=== PATIENT | female | born 1945 | race Caucasian/White ===

== ENCOUNTER 2017-10-03 12:00 | Outpatient (CLI) | payer MEDICARE | END 2017-10-03 12:01 | disposition home or self-care (01) | LOC: BICMAMMO 12:00 | PROVIDERS: ATTEND Obstetrics & Gynecology | DX: Z12.31 Encounter for screening mammogram for malignant neoplasm of breast (principal) | CPT/HCPCS: 77063; 77067 ==

== ENCOUNTER 2018-10-04 00:30 | Emergency (ER) | payer MEDICARE ==
[2018-10-04] MEDS ORDERED: HYDROcodone/Acetaminophen 5/325 mg Tablet ONE (03:05)
--- NOTE | 2018-10-04 07:44 | RAD ---
RIGHT WRIST GREATER THAN OR EQUAL TO 2 VIEWS WITH A PA CHEST XRAY: HISTORY: Pain. COMPARISON: None. FINDINGS: The lungs are clear. No pneumothorax. No effusion. There is mild scarring of both lung apices. There appears to be cement in the upper and lower lumbar spine vertebrae from an old fracture. There is a fracture of the right posterolateral 2nd, 3rd, 4th, 5th, and 6th ribs. IMPRESSION: Nondisplaced right posterolateral 2nd through 6th rib fractures. POS: [facility]
== END 2018-10-04 03:11 | disposition home or self-care (01) ==
LOC: ERS 00:30
DX: S22.41XA Multiple fractures of ribs, right side, initial encounter for closed fracture (principal); E03.9 Hypothyroidism, unspecified; E78.5 Hyperlipidemia, unspecified; I10 Essential (primary) hypertension; K21.9 Gastro-esophageal reflux disease without esophagitis; Z79.899 Other long term (current) drug therapy; W19.XXXA Unspecified fall, initial encounter

== ENCOUNTER 2018-10-06 19:08 | Emergency (ER) | payer MEDICARE ==
[2018-10-06] MEDS ORDERED: Ketorolac Tromethamine 30 MG/ML VIAL ONE (19:56)
--- NOTE | 2018-10-06 20:05 | RAD ---
FPortable chest: HISTORY: Fall with injury to ribs COMPARISON: none FINDINGS: Lung porter are clear. Heart and mediastinum appear unremarkable. Vascularity is normal. Right-sided rib fractures have been previously described. IMPRESSION: No acute finding
== END 2018-10-06 21:15 | disposition home or self-care (01) ==
LOC: ERS 19:08
DX: R07.81 Pleurodynia (principal); E03.9 Hypothyroidism, unspecified; K21.9 Gastro-esophageal reflux disease without esophagitis; E78.5 Hyperlipidemia, unspecified; I10 Essential (primary) hypertension; Z79.899 Other long term (current) drug therapy; W19.XXXD Unspecified fall, subsequent encounter
CPT/HCPCS: 71045; 94799; 96372; J1885

== ENCOUNTER 2018-11-04 22:53 | Inpatient (IN) | payer MEDICARE ==
[2018-11-04 23:46] LABS: #Eosinphils 0.3 thou/uL (0.0-0.7); #Lymphocytes 2.6 thou/uL (1.20-3.40); #Monocytes 0.7 thou/uL (0.11-0.59); #Neutrophils 3.3 thou/uL (1.40-6.50); %Basophils 0.6 % (0.0-1.0); %Eosinophils 4.1 % (0.0-10.0); %Lymphocytes 36.9 % (21.0-51.0); %Monocytes 10.5 % (0.0-10.0); Hemoglobin 15.1 g/dL (12.0-16.0); Mean Corpuscular HGB CONC 32.4 g/dL (32.0-36.0); Mean Corpuscular Hemoglobin 32.5 pg (27.0-31.0); Mean Platelet Volume 7.1 fL (7.4-10.4); Platelet Count 254 thou/uL (130-400); RBC Distribution Width 11.7 % (11.5-14.5); Red Blood Cell (RBC) Count 4.64 mill/uL (4.20-5.40); White Blood Cell (WBC) Count 6.9 thou/uL (4.8-10.8)
[2018-11-04 23:56] LABS: INR-International Normal Ratio 0.9; Prothrombin Time 12.4 SEC (12.0-14.7)
[2018-11-05 00:01] LABS: ALT (SGPT) 15 U/L (8-55); AST (SGOT) 20 U/L (5-34); Albumin 3.9 g/dL (3.4-4.8); Alkaline Phosphatase 300 U/L (40-150); Anion Gap 11 mmol/L (10-20); BUN (Urea Nitrogen) 20 mg/dL (9.8-20.1); Bilirubin, Total 0.2 mg/dL (0.2-1.2); Calc. Creatinine Clearance 0 mL/min (70-130); Calcium 9.6 mg/dL (7.8-10.44); Carbon Dioxide 28 mmol/L (23-31); Chloride 106 mmol/L (98-107); Estimated GFR-MDRD 78; Globulin 2.7 g/dL (2.4-3.5); Glucose 109 mg/dL (83-110); Potassium 4.1 mmol/L (3.5-5.1); Protein, Total 6.6 g/dL (6.0-8.3); Sodium 141 mmol/L (136-145)
[2018-11-05] MEDS ORDERED: Morphine 4 MG/ML VIAL ONE (00:11)
[2018-11-05] MEDS ORDERED: Ondansetron PF 4 MG/2 ML Vial ONE ×2 (00:11→16:37)
[2018-11-05] MEDS ORDERED: hydrALAZINE 20 MG/ML VIAL SLOW IVP PRN (02:44)
[2018-11-05] MEDS ORDERED: Dextrose 50% Abboject 50 ML SYRINGE SLOW IVP PRN (02:44)
[2018-11-05] MEDS ORDERED: Dextrose 5% in Water 1,000 ML IV PRN (02:44)
[2018-11-05] MEDS ORDERED: Acetaminophen 1,000 MG in Premix Bag 1 BAG IVPB SCH (02:44)
[2018-11-05] MEDS ORDERED: Ondansetron PF 4 MG/2 ML Vial IVP PRN ×2 (02:44→14:40)
[2018-11-05] MEDS ORDERED: Morphine 4 MG/ML VIAL SLOW IVP PRN (02:44)
[2018-11-05] MEDS ORDERED: Ondansetron ODT 4 MG TAB PO PRN ×2 (02:44→14:40)
[2018-11-05] MEDS: Sodium Chloride 0.9% 1,000 ML IV SCH ×2 (03:11→12:28)
[2018-11-05 03:12] VITALS: BMI 32.5
[2018-11-05] MEDS: Acetaminophen 1,000 MG in Premix Bag 1 BAG IVPB SCH ×3 (03:12→17:44)
[2018-11-05] MEDS: Ketorolac Tromethamine 30 MG/ML VIAL IVP SCH ×3 (05:05→17:45)
[2018-11-05] MEDS: Morphine 4 MG/ML VIAL SLOW IVP PRN ×2 (05:17→09:56)
[2018-11-05 05:36] LABS: #Lymphocytes 1.1 thou/uL (1.20-3.40); #Monocytes 0.8 thou/uL (0.11-0.59); #Neutrophils 11.2 thou/uL (1.40-6.50); %Basophils 0.2 % (0.0-1.0); %Eosinophils 0.3 % (0.0-10.0); %Lymphocytes 8.5 % (21.0-51.0); %Monocytes 6.2 % (0.0-10.0); %Neutrophils 84.8 % (42.0-75.0); Hemoglobin 14.8 g/dL (12.0-16.0); Mean Corpuscular HGB CONC 32.1 g/dL (32.0-36.0); Mean Corpuscular Hemoglobin 32.4 pg (27.0-31.0); Mean Platelet Volume 7.3 fL (7.4-10.4); Platelet Count 241 thou/uL (130-400); RBC Distribution Width 11.6 % (11.5-14.5); Red Blood Cell (RBC) Count 4.57 mill/uL (4.20-5.40); White Blood Cell (WBC) Count 13.2 thou/uL (4.8-10.8)
[2018-11-05 05:52] LABS: Anion Gap 12 mmol/L (10-20); BUN (Urea Nitrogen) 16 mg/dL (9.8-20.1); Calc. Creatinine Clearance 95 mL/min (70-130); Calcium 9.7 mg/dL (7.8-10.44); Carbon Dioxide 27 mmol/L (23-31); Chloride 104 mmol/L (98-107); Estimated GFR-MDRD 86; Glucose 140 mg/dL (83-110); Potassium 4.8 mmol/L (3.5-5.1); Sodium 138 mmol/L (136-145)
--- NOTE | 2018-11-05 06:58 | RAD ---
PORTABLE CHEST 1 VIEW: Date: 11/04/18 Time: 2347 hours HISTORY: Fall, injury, chest pain. FINDINGS: Comparison made with exam of 10/06/18. The heart size is stable. Lungs are well expanded without focal areas of consolidation, pneumothorace s, or pleural effusions. There is no evidence of mary pulmonary edema. IMPRESSION: No acute process. POS: [facility]
--- NOTE | 2018-11-05 07:00 | RAD ---
AP PELVIS AND LEFT HIP 2 VIEWS: Date: 11/04/18 HISTORY: Fall. Left hip pain. FINDINGS/IMPRESSION: There are postop changes and right hip arthroplasty in good position and alignment. There is an intertrochanteric fracture involving the left hip. POS: [facility]
--- NOTE | 2018-11-05 08:18 | HP ---
This is Yosvany Castaneda PA-C dictating a report for Jose Daniel Cisneros MD. REQUESTING PHYSICIAN: Dr. Pugh. ATTENDING SURGEON: Jose Daniel Cisneros MD CONSULTATIONS: Orthopedics, Dr. Wright. HISTORY OF PRESENT ILLNESS: The patient is a 73-year-old woman, who was getting into her shower when she slipped and fell. Fortunately, she was able to activate her Life Alert and notify EMS, who brought her to the emergency department where she underwent evaluation and examination and was noted to have a left intertrochanteric hip fracture, at which time, we were asked to evaluate the patient for admission and obtain Orthopedic consultation. The patient denied any loss of consciousness or syncopal episode prior to her fall. ALLERGIES: PENICILLIN AND SULFA. CURRENT MEDICATIONS: Levothyroxine, phenytoin, atorvastatin, amlodipine, omeprazole, VESIcare, Imodium, vitamin D, iron, Tums, Tylenol with codeine and Ultram. PAST MEDICAL HISTORY: Hypothyroidism, hypertension, seizure disorder, hyperlipidemia, irritable bowel syndrome, and GERD. PAST SURGICAL HISTORY: Right total hip replacement and tonsillectomy. SOCIAL HISTORY: The patient lives at home with her . She normally ambulates with a walker. She denies drug, tobacco, or alcohol use. REVIEW OF SYSTEMS: A 10-point review of systems is negative except as otherwise stated. PHYSICAL EXAMINATION: VITAL SIGNS: Temperature is 98.2, heart rate 103, blood pressure 137/84, respirations 18, and oxygen saturation is 96% on room air. GENERAL: The patient is resting comfortably in bed. She is awake, alert, oriented, and conversant and appropriate. Busy Coma Scale is 15. HEENT. Head is normocephalic, atraumatic. Eyes, extraocular motion intact. PERRLA bilaterally. Ears are atraumatic without discharge. Nose atraumatic discharge. Oropharynx is clear. Neck is nontender. Trachea is midline. No JVD. CHEST: Clear to auscultation with good inspiratory and expiratory effort. HEART: Regular rate and rhythm. ABDOMEN: Soft, flat, nontender with active bowel sounds. Pelvis is stable with tenderness to palpation to the left hip consistent with her fracture. EXTREMITIES: Neurovascularly intact x4. The patient does have a small contusion on her left knee. BACK: Atraumatic and nontender. LABORATORY FINDINGS: White blood cell count 13.2, hemoglobin 14.8, hematocrit 46.2, and platelets 241. Sodium 138, potassium 4.8, chloride 104, CO2 27, BUN 16, creatinine 0.67, glucose 140. LFTs are unremarkable with the exception of alkaline phosphatase of 300. Troponin is less than 0.010. PT 12, INR 0.9, PTT 27. RADIOGRAPHIC FINDINGS: AP chest x-ray shows no acute process. Views of the left hip show an intertrochanteric hip fracture. AP pelvis again shows a left intertrochanteric hip fracture. ASSESSMENT/PLAN: 1. Status post ground level fall. 2. Left intertrochanteric hip fracture. 3. Acute pain secondary to above. 4. History of hypertension. 5. History of seizure disorder. 6. History of hyperlipidemia. 7. History of gastroesophageal reflux disease. PLAN: Plan will be to admit the patient to the surgical floor. Dr. Wright has been notified by the ER, likely plan for open reduction and internal fixation of her fracture today. Postoperatively, the patient will be evaluated by Rehab. We will do pain control, pulmonary toilet, gastritis, mechanical VTE prophylaxis. Resume home medications. The patient is not on any blood thinner to include aspirin. The evaluation, examination, laboratory and radiographic findings will be discussed with Dr. Cisneros after this dictation and be evaluated during rounds this morning. Job ID: [id number]
[2018-11-05] MEDS: Levothyroxine Sodium 50 MCG TAB PO SCH (08:24)
[2018-11-05] MEDS: Ferrous Gluconate 324 MG TAB PO SCH (08:33)
[2018-11-05] MEDS: Calcium Carbonate 500 MG TAB PO SCH ×2 (08:33→22:01)
[2018-11-05] MEDS ORDERED: Clindamycin/D5W 900 MG in Premix Bag 1 BAG IVPB SCH (09:15)
[2018-11-05] MEDS: Trospium 20 MG TAB PO SCH ×2 (09:48→22:21)
[2018-11-05] MEDS: Famotidine 20 MG TAB PO SCH ×2 (09:48→22:02)
[2018-11-05] MEDS ORDERED: Clindamycin/D5W 900 mg/50 ml Premix Bag ONE (12:09)
[2018-11-05] MEDS ORDERED: Fentanyl 100 MCG/2 ML VIAL ONE ×2 (12:46→14:47)
--- NOTE | 2018-11-05 13:09 | PRG ---
DATE OF SERVICE: 11/05/2018 SUBJECTIVE: Shirley Garcia is a 73-year-old female, who fell in the shower, suffered a left hip fracture. ORIF is planned today. She is followed by the Trauma Service. PAST MEDICAL HISTORY: Includes a history of seizures and hypertension. HOME MEDICATIONS: Include, 1. PPI. 2. Iron. 3. Tramadol. 4. Phenytoin. 5. P.r.n. . 6. Levothyroxine. 7. P.r.n. hydrocodone. 8. Atorvastatin. 9. Amlodipine. Agree with treatment plan per Orthopedics and Trauma Care. OBJECTIVE: LUNGS: Clear to auscultation. CARDIAC: Regular rate and rhythm. No murmur or gallop. ABDOMEN: Soft, nontender. Job ID: [id number]
[2018-11-05] MEDS ORDERED: Neomycin-Polymyxin 1 ML AMP ONE (13:57)
[2018-11-05] MEDS ORDERED: Cepastat Lozenges 1 LOZ PO PRN (14:40)
[2018-11-05] MEDS ORDERED: Milk Of Magnesia 30 ML UDCUP PO PRN (14:40)
[2018-11-05] MEDS ORDERED: Fleet Enema 133 ML BOT PR PRN (14:40)
[2018-11-05] MEDS ORDERED: Bisacodyl 10 MG SUPP PR PRN (14:40)
[2018-11-05] MEDS ORDERED: traMADol HCl 50 MG TAB PO PRN ×2 (14:40)
[2018-11-05] MEDS ORDERED: Promethazine HCl 25 MG/ML VIAL IM PRN (14:47)
[2018-11-05] MEDS ORDERED: Promethazine HCl 25 MG/ML VIAL SLOW IVP PRN (14:47)
[2018-11-05] MEDS ORDERED: Ondansetron HCl/PF 4 MG/2 ML Vial IVP PRN (14:47)
[2018-11-05] MEDS ORDERED: Promethazine HCl 25 MG/ML VIAL ONE (15:29)
--- NOTE | 2018-11-05 15:54 | RAD ---
LEFT HIP THREE VIEWS: Technique: Three fluoroscopic views taken in OR during internal fixation procedure. Indications: Fluoroscopic imaging during open reduction internal fixation of left hip fracture. FINDINGS: Films demonstrate medullary brian and pin transfixing the trochanteric fracture. POS: [facility]
[2018-11-05] MEDS ORDERED: Lidocaine 1% PF 5 ML VIAL ONE (16:37)
[2018-11-05] MEDS ORDERED: PROPOFOL 200 MG/20 ML VIAL ONE (16:37)
[2018-11-05] MEDS ORDERED: ePHEDrine 50 MG/ML VIAL ONE (16:37)
[2018-11-05] MEDS ORDERED: Ketorolac Tromethamine 30 MG/ML VIAL ONE (16:37)
[2018-11-05] MEDS ORDERED: PHENYLEPHRINE-NS 100 MCG/ML 10 ML SYRINGE ONE (16:37)
[2018-11-05] MEDS ORDERED: Rocuronium Bromide 10 MG/ML (10ML VIAL) ONE (16:37)
[2018-11-05] MEDS ORDERED: Ferrous Gluconate 324 MG TAB PO SCH (21:00)
--- NOTE | 2018-11-05 21:10 | OP ---
DATE OF PROCEDURE: 11/05/2018 PREOPERATIVE DIAGNOSIS: Intertrochanteric fracture of the left hip. POSTOPERATIVE DIAGNOSIS: Intertrochanteric fracture of the left hip. PROCEDURE PERFORMED: Open reduction and internal fixation of intertrochanteric fracture of the left hip. ANESTHESIA: General. TECHNIQUE: The patient was given preoperative IV antibiotics, taken to the operating room, placed in supine position. Satisfactory general anesthesia was performed. The patient was placed on the fracture table and left lower extremity was placed in traction with a well-padded left foot and ankle, and C-arm verified good alignment of the intertrochanteric fracture in AP and lateral planes. A longitudinal incision was made approximately 2 inches in length proximal to the greater trochanter and under fluoroscopic visualization, a guide pin was placed through the greater trochanter. It was then over-reamed and a [employer]ynthe[employer] trochanteric fixation nail that was 11 mm in diameter and 170 mm in length was inserted across the fracture and into the intramedullary canal. A 95 mm helical blade was then inserted through the nail and into the femoral neck and head, and was then locked into position. A 5.0 mm locking screw was inserted into the femoral shaft and distal aspect of the nail. This was all in good position, was verified with C-arm, and good placement of the nail and screws. Wounds were then copiously irrigated with antibiotic solution, closed using Vicryl for the deeper tissue, and skin was closed using skin smith. Sterile dressing was applied. The patient was taken out of traction. She was awakened, extubated, and transferred to recovery room in stable condition. ESTIMATED BLOOD LOSS: 200 mL. COMPLICATIONS: None. Job ID: [id number]
--- NOTE | 2018-11-05 21:15 | CON ---
DATE OF CONSULTATION: 11/05/2018 HISTORY OF PRESENT ILLNESS: Ms. Garcia is a 73-year-old female, who was at home in the shower. She slipped and fell on her left hip, had immediate pain and deformity in the left hip, and was unable to ambulate. She was brought to the emergency room early this morning. X-rays revealed a displaced intertrochanteric fracture of the left hip. ALLERGIES: PENICILLIN AND SULFA. CURRENT MEDICATIONS: 1. Levothyroxine. 2. Phenytoin. 3. Atorvastatin. 4. Amlodipine. 5. VESIcare. 6. Imodium. 7. Tylenol with codeine. 8. Ultram. PAST MEDICAL HISTORY: Hypothyroidism, hypertension, seizure disorder, hyperlipidemia, irritable bowel syndrome, and GERD. PAST SURGICAL HISTORY: ORIF of the posterior acetabulum and pelvic region and then later a right total hip replacement and tonsillectomy. PHYSICAL EXAMINATION: GENERAL: The patient is a very pleasant female, alert and oriented x3. She is afebrile. VITAL SIGNS: Stable. The patient has pain with any attempts of movement of the left hip. EXTREMITIES: Left lower extremity is neurovascularly intact. She has good peripheral pulses. Good sensation. X-ray shows intertrochanteric fracture of the left hip with coxa varus. PLAN: The patient will require open reduction and internal fixation of the proximal left femur. Plan on using a trochanteric fixation nail. Potential risks with the condition of surgery include, but are not limited to infection, bleeding, pain, damage to blood vessels and nerves, nonunion, malunion, patient may require additional surgery, DVT and PE formation. The patient's questions were answered and agreed to the procedure. Job ID: [id number]
[2018-11-05] MEDS: Amlodipine 5 MG TAB PO SCH (22:00)
[2018-11-05] MEDS: Atorvastatin Calcium 10 MG TAB PO SCH (22:01)
[2018-11-05] MEDS: Senokot S 8.6-50 MG TAB PO SCH (22:03)
[2018-11-06] MEDS ORDERED: Cyclobenzaprine 10 MG TAB PO PRN (01:29)
[2018-11-06] MEDS ORDERED: traMADol HCl 50 MG TAB PO PRN ×2 (01:29)
[2018-11-06 05:40] LABS: Mean Corpuscular HGB CONC 31.9 g/dL (32.0-36.0); Mean Corpuscular Hemoglobin 31.8 pg (27.0-31.0); Mean Corpuscular Volume 99.6 fL (78.0-98.0); Mean Platelet Volume 7.1 fL (7.4-10.4); Platelet Count 202 thou/uL (130-400); RBC Distribution Width 11.5 % (11.5-14.5); Red Blood Cell (RBC) Count 4.08 mill/uL (4.20-5.40); White Blood Cell (WBC) Count 7.3 thou/uL (4.8-10.8)
[2018-11-06] MEDS: Acetaminophen 500 MG TAB PO SCH ×4 (05:53→18:58)
[2018-11-06] MEDS: Ibuprofen 800 MG TAB PO SCH ×2 (05:53→13:06)
[2018-11-06] MEDS: Levothyroxine Sodium 50 MCG TAB PO SCH (08:36)
[2018-11-06] MEDS: Ferrous Gluconate 324 MG TAB PO SCH (08:36)
[2018-11-06] MEDS: Multivitamin W/ Minerals 1 TAB PO SCH (08:39)
[2018-11-06] MEDS: Famotidine 20 MG TAB PO SCH ×2 (08:39→21:49)
[2018-11-06] MEDS: Senokot S 8.6-50 MG TAB PO SCH ×2 (08:39→21:51)
[2018-11-06] MEDS: Calcium Carbonate 500 MG TAB PO SCH ×2 (08:40→21:48)
[2018-11-06] MEDS: Aspirin 81 mg Enteric Coated Tablet PO SCH ×2 (10:01→21:48)
[2018-11-06] MEDS: Trospium 20 MG TAB PO SCH ×2 (10:02→21:52)
[2018-11-06] MEDS: Ibuprofen 600 MG TAB PO SCH ×2 (11:41→18:53)
[2018-11-06] MEDS ORDERED: traMADol HCl 50 MG TAB PO SCH (12:00)
--- NOTE | 2018-11-06 13:26 | PRG ---
DATE OF SERVICE: 11/06/2018 SUBJECTIVE: This is a 73-year-old woman who was getting out of her shower when she slipped and fell. The patient is postop day number 1, open reduction and internal fixation of intertrochanteric fracture of the left hip. The patient had no overnight events. The patient is attempting to work with Physical Therapy at this time with increased pain. OBJECTIVE: VITAL SIGNS: Temperature 97.7, pulse 109, respirations 18, SpO2 of 97% on room air, blood pressure 121/86. GENERAL: The patient is awake and alert, in moderate distress due to pain while working with Physical Therapy. HEENT: Head is normocephalic, atraumatic. CHEST: Good inspiratory and expiratory effort. No respiratory distress. HEART: Regular rate and rhythm. ABDOMEN: Soft, nontender. EXTREMITIES: Neurovascularly intact x4. The patient has small contusion to left knee. LABORATORY DATA: WBC 7.3, RBC 4.08, hemoglobin 13.0, hematocrit 40.7. DIAGNOSTIC STUDIES: There is no diagnostics to review today. ASSESSMENT: 1. Status post ground level fall. 2. Left intertrochanteric hip fracture, postoperative day number 1. 3. Acute pain secondary to above. 4. History of hypertension. 5. History of seizure disorder. 6. History of hyperlipidemia. 7. History of gastroesophageal reflux disease. PLAN: We will continue supportive care. We will put the patient on scheduled pain medication as she is having difficulty working with Physical Therapy. We will put the patient on aspirin 81 mg b.i.d. for DVT prophylaxis. Case Management working to get the patient to the [facility] for continued physical therapy. The patient was examined with Dr. Roy this morning during morning rounds. Job ID: [id number]
[2018-11-06] MEDS: traMADol HCl 50 MG TAB PO SCH ×2 (17:08→21:50)
--- NOTE | 2018-11-06 18:31 | PRG ---
DATE OF SERVICE: 11/06/2018 SUBJECTIVE: Ms. Garcia is 1 day status post open reduction and internal fixation of intertrochanteric fracture using a trochanteric fixation nail. The patient did work with Physical Therapy, was able to get out of bed and sit in a chair. She complains of pain. She has no neurologic complaints in the lower extremity. No other complaints elsewhere. OBJECTIVE: VITAL SIGNS: The patient is afebrile. Vital signs are stable. LABORATORY DATA: Hemoglobin this morning is 13. PLAN: The patient will continue with physical therapy. Her plan post-hospitalization is, go to long term facility and Case Management is involved with that. Job ID: [id number]
[2018-11-06] MEDS: Amlodipine 5 MG TAB PO SCH (21:47)
[2018-11-06] MEDS: Atorvastatin Calcium 10 MG TAB PO SCH (21:48)
[2018-11-07] MEDS: Acetaminophen 500 MG TAB PO SCH ×4 (00:36→17:51)
[2018-11-07] MEDS: traMADol HCl 50 MG TAB PO SCH ×4 (03:48→21:32)
[2018-11-07] MEDS: Ibuprofen 600 MG TAB PO SCH ×3 (03:48→17:48)
[2018-11-07 05:26] LABS: Mean Corpuscular HGB CONC 32.2 g/dL (32.0-36.0); Mean Corpuscular Hemoglobin 32.4 pg (27.0-31.0); Mean Platelet Volume 6.9 fL (7.4-10.4); Platelet Count 194 thou/uL (130-400); RBC Distribution Width 11.6 % (11.5-14.5); White Blood Cell (WBC) Count 8.4 thou/uL (4.8-10.8)
[2018-11-07] MEDS: Levothyroxine Sodium 50 MCG TAB PO SCH (09:48)
[2018-11-07] MEDS: Famotidine 20 MG TAB PO SCH ×2 (09:51→21:31)
[2018-11-07] MEDS: Aspirin 81 mg Enteric Coated Tablet PO SCH ×2 (09:51→21:30)
[2018-11-07] MEDS: Calcium Carbonate 500 MG TAB PO SCH ×2 (09:51→21:31)
[2018-11-07] MEDS: Ferrous Gluconate 324 MG TAB PO SCH (09:51)
[2018-11-07] MEDS: Senokot S 8.6-50 MG TAB PO SCH ×2 (09:51→21:32)
[2018-11-07] MEDS: Trospium 20 MG TAB PO SCH ×2 (09:52→21:32)
[2018-11-07] MEDS: Multivitamin W/ Minerals 1 TAB PO SCH (09:52)
--- NOTE | 2018-11-07 16:29 | PRG ---
DATE OF SERVICE: 11/07/2018 SUBJECTIVE: Ms. Garcia says pain in left hip has decreased compared to yesterday. She has been working with Physical Therapy. OBJECTIVE: VITAL SIGNS: The patient is afebrile. Vital signs are stable. LABORATORY DATA: Laboratory this morning shows hemoglobin is 12 and hematocrit 37.2. PLAN: The patient will continue with physical therapy. She is scheduled to be discharged to rehab as soon as bed is available. Job ID: [id number]
--- NOTE | 2018-11-07 17:33 | PRG ---
DATE OF SERVICE: 11/07/2018 SUBJECTIVE: The patient is currently on the surgical floor. She is postop day 2, hospital day 3 status post open reduction and internal fixation of intertrochanteric left hip fracture. The patient, who has a ground level fall, underwent her above procedure, which she has tolerated well. She is yet to work with Physical and Occupational Therapy other than sitting at the bedside. We suspect that she should be able to ambulate. Today, her pain control has been much better. She is tolerating a diet, and has no other complaints. The patient is also awaiting her third midnight for her to be able to be transferred to her nursing/rehab facility. OBJECTIVE: VITAL SIGNS: Temperature is 97.5, heart rate 95, blood pressure 100/65, respirations 18, oxygen saturation 92% on room air. GENERAL: The patient is resting comfortably in bed. She is awake, alert, very conversant, and appropriate. LUNGS: Clear to auscultation with good inspiratory and expiratory effort. HEENT: Unremarkable. HEART: Regular rate and rhythm. ABDOMEN: Soft, flat, nontender with active bowel sounds. EXTREMITIES: Neurovascularly intact x4. Postop dressing is clean, dry, and intact. LABORATORY FINDINGS: White blood cell count 8.4, hemoglobin 12.0, hematocrit 37.2, platelets 194. There are no radiographs to review this morning. ASSESSMENT AND PLAN: 1. Status post ground level fall. 2. Status post open reduction and internal fixation for a left intertrochanteric hip fracture. Plan will be to continue supportive care, physical and occupational therapy, and await placement decision tomorrow. The patient was evaluated this morning with Dr. Roy. Job ID: [id number]
[2018-11-07] MEDS: Amlodipine 5 MG TAB PO SCH (21:29)
[2018-11-07] MEDS: Atorvastatin Calcium 10 MG TAB PO SCH (21:30)
[2018-11-08] MEDS: Acetaminophen 500 MG TAB PO SCH ×3 (01:32→15:47)
[2018-11-08] MEDS: Ibuprofen 600 MG TAB PO SCH ×2 (03:32→09:33)
[2018-11-08] MEDS: traMADol HCl 50 MG TAB PO SCH ×3 (03:33→15:43)
[2018-11-08] MEDS ORDERED: Polyethylene Glycol 3350 17 GM Packet PO SCH (09:00)
[2018-11-08] MEDS: Levothyroxine Sodium 50 MCG TAB PO SCH (09:14)
[2018-11-08] MEDS: Aspirin 81 mg Enteric Coated Tablet PO SCH (09:14)
[2018-11-08] MEDS: Ferrous Gluconate 324 MG TAB PO SCH (09:14)
[2018-11-08] MEDS: Calcium Carbonate 500 MG TAB PO SCH (09:15)
[2018-11-08] MEDS: Famotidine 20 MG TAB PO SCH (09:15)
[2018-11-08] MEDS: Multivitamin W/ Minerals 1 TAB PO SCH (09:15)
[2018-11-08] MEDS: Trospium 20 MG TAB PO SCH (09:15)
[2018-11-08] MEDS: Senokot S 8.6-50 MG TAB PO SCH (09:15)
[2018-11-08 12:00] VITALS: TEMP 97.9
[2018-11-08] MEDS ORDERED: Fentanyl 100 MCG/2 ML VIAL ONE (15:13)
[2018-11-08 16:21] VITALS: BP 117/75
--- NOTE | 2018-11-09 18:58 | DIS ---
DATE OF ADMISSION: 11/05/2018 DATE OF DISCHARGE: 11/08/2018 RESIDENT: Dr. Wes Knapp. IMAGING STUDIES: AP chest shows no acute process. Views of left hip show intertrochanteric hip fracture. AP pelvis also shows intertrochanteric hip fracture. CONSULTANTS: Orthopedic Surgery, Dr. Isaac Wright. DISCHARGE MEDICATIONS: 1. Levothyroxine 50 mcg p.o. every morning. 2. Atorvastatin 10 mg p.o. at bedtime. 3. Calcium carbonate 1000 mg p.o. b.i.d. 4. Imodium 2 mg p.o. as directed p.r.n. 5. Tramadol 50 mg p.o. q.i.d. p.r.n. 6. Amlodipine 2.5 mg p.o. every evening. 7. Dilantin 300 mg p.o. at bedtime. 8. Ferrous gluconate 324 mg p.o. daily. 9. VESIcare 5 mg p.o. daily. 10. Omeprazole 40 mg p.o. b.i.d. 11. Acetaminophen 1000 mg p.o. q.6 hours. 12. Aspirin 81 mg p.o. b.i.d. 13. Flexeril 5 mg p.o. t.i.d. 14. Ibuprofen 600 mg p.o. q.8 hours. 15. Tramadol 50 mg p.o. q.6 hours. PRIMARY DIAGNOSIS: Status post open reduction and internal fixation of left intertrochanteric hip fracture. SECONDARY DIAGNOSES: 1. Hypothyroidism. 2. Hypertension. 3. Seizure disorder. 4. Hyperlipidemia. 5. IBS. 6. GERD. HISTORY OF PRESENT ILLNESS/HOSPITAL COURSE: Ms. Garcia is a 73-year-old female, who presents to the emergency department with a chief complaint of hip pain. She was attempting to get into her shower when she slipped and fell. Activated Life Alert and EMS brought her to the emergency department, found to have a hip fracture. Trauma Service admitted and consulted Orthopedic Surgery for fixation of this. The patient tolerated operative intervention well. It was stabilized with open reduction and internal fixation. The patient continued to improve and remained stable throughout hospital course, ambulated with physical therapy and occupational therapy. Tolerated p.o. diet and had bowel movements, deemed stable for rehab in inpatient setting. DISCHARGE INSTRUCTIONS: Location: Inpatient rehab. Activity: As tolerated with PT and OT. Diet: Heart healthy low-sodium. Followup: Follow up with PCP in 14 days and Orthopedic Surgery, Dr. Wright in 14 days as well. Job ID: [id number]
== END 2018-11-08 17:37 | DRG 482 ==
LOC: ERS 22:53 → SJJU 11-05 00:18
PROVIDERS: ADMIT Specialist; ATTEND Specialist
PROC: 0QS704Z Reposition Left Upper Femur with Internal Fixation Device, Open Approach (ICD-10-PCS; principal; 2018-11-05)
DX: S72.142A Displaced intertrochanteric fracture of left femur, initial encounter for closed fracture (principal); E03.9 Hypothyroidism, unspecified; I10 Essential (primary) hypertension; G40.909 Epilepsy, unspecified, not intractable, without status epilepticus; E78.5 Hyperlipidemia, unspecified; K21.9 Gastro-esophageal reflux disease without esophagitis; Z96.641 Presence of right artificial hip joint; Z88.0 Allergy status to penicillin; Z88.2 Allergy status to sulfonamides; Z79.899 Other long term (current) drug therapy; Z90.89 Acquired absence of other organs; W01.0XXA Fall on same level from slipping, tripping and stumbling without subsequent striking against object, initial encounter; Y93.E1 Activity, personal bathing and showering; Y92.89 Other specified places as the place of occurrence of the external cause
CPT/HCPCS: 36415; 71045; 72170; 76000; 80048; 80053; 84484; 85025; 85027; 85610; 85730; 86850; 86900; 86901; 93005; 96374; 96375; C1713; J0131; J1885; J2001; J2270; J2405; J2550; J2704; J3010; J3490; Q0162

== ENCOUNTER 2018-11-11 12:13 | Observation (INO) | payer MEDICARE ==
[2018-11-11 12:54] LABS: #Basophils 0.1 thou/uL (0.0-0.2); #Eosinphils 0.3 thou/uL (0.0-0.7); #Lymphocytes 1.7 thou/uL (1.20-3.40); #Monocytes 0.8 thou/uL (0.11-0.59); #Neutrophils 5.7 thou/uL (1.40-6.50); %Basophils 0.8 % (0.0-1.0); %Eosinophils 3.6 % (0.0-10.0); %Lymphocytes 19.4 % (21.0-51.0); %Monocytes 9.3 % (0.0-10.0); %Neutrophils 66.9 % (42.0-75.0); Hemoglobin 13.3 g/dL (12.0-16.0); Mean Corpuscular HGB CONC 32.9 g/dL (32.0-36.0); Mean Platelet Volume 6.5 fL (7.4-10.4); Platelet Count 333 thou/uL (130-400); RBC Distribution Width 11.5 % (11.5-14.5); Red Blood Cell (RBC) Count 4.02 mill/uL (4.20-5.40); White Blood Cell (WBC) Count 8.5 thou/uL (4.8-10.8)
--- NOTE | 2018-11-11 12:56 | CT ---
CT brain. HISTORY: Altered mental status. Noncontrast enhanced images of the brain obtained. Images demonstrate diffuse cortical atrophy and deep white matter ischemic changes. No evidence of acute intracranial masses hemorrhages or strokes seen. IMPRESSION: No evidence of acute intracranial pathology.
--- NOTE | 2018-11-11 13:05 | RAD ---
AP view chest Chest pain. AP view chest obtained on 11/11/2018. EKG leads seen over the chest. Pulmonary vascular congestion seen. No evidence of effusions, pneumoni a or pneumothorax seen. IMPRESSION: No acute intrathoracic abnormality seen.
[2018-11-11 13:16] LABS: ALT (SGPT) 24 U/L (8-55); AST (SGOT) 32 U/L (5-34); Albumin 3.6 g/dL (3.4-4.8); Alkaline Phosphatase 229 U/L (40-150); Anion Gap 11 mmol/L (10-20); BUN (Urea Nitrogen) 15 mg/dL (9.8-20.1); Bilirubin, Total 0.6 mg/dL (0.2-1.2); Calc. Creatinine Clearance 0 mL/min (70-130); Calcium 9.7 mg/dL (7.8-10.44); Carbon Dioxide 26 mmol/L (23-31); Chloride 104 mmol/L (98-107); Estimated GFR-MDRD 80; Globulin 3.3 g/dL (2.4-3.5); Glucose 101 mg/dL (83-110); Protein, Total 6.9 g/dL (6.0-8.3); Sodium 137 mmol/L (136-145)
[2018-11-11 13:31] LABS: Bilirubin Negative (Negative); Blood, Urine Trace (Negative); Clarity CLOUDY (Clear); Glucose, Urine (Dipstick) Negative (Negative); Leukocyte Moderate (Negative); Nitrite Positive (Negative); Protein, Urine (Dipstick) Trace mg/dL (Neg-Trace); Specific Gravity, Urine 1.021 (1.002-1.036); Urobilinogen 0.2 mg/dL (0.2-1.0); pH, Urine 6.5 (5.0-9.0)
[2018-11-11 13:33] LABS: Bacteria/HPF 4+ HPF (None Seen); Pathc Cast-AUWi Flag 1.22 (0-2.49); Squamous Epithelial None Seen HPF (0-3); WBC/HPF 21-50 HPF (0-3)
[2018-11-11 13:47] LABS: Hyaline Casts/LPF NONE SEEN LPF (0-3 Hyaline)
[2018-11-11] MEDS ORDERED: Lorazepam 2 MG/ML VIAL ONE (13:50)
[2018-11-11] MEDS ORDERED: cefTRIAXone\\ROCEPHIN 2 GM VIAL ONE (13:57)
[2018-11-11] MEDS ORDERED: Fosphenytoin Sodium 100 MG in Sodium Chloride 0.9% 50 ML IVPB SCH ×2 (16:15→23:59)
[2018-11-11 19:52] VITALS: BMI 32.7
[2018-11-11] MEDS ORDERED: Sodium Chloride 0.9% 1,000 ML IV SCH (20:06)
[2018-11-11] MEDS ORDERED: Ondansetron ODT 4 MG TAB SL PRN (20:06)
[2018-11-11] MEDS ORDERED: Ondansetron PF 4 MG/2 ML Vial IVP PRN (20:06)
[2018-11-11] MEDS ORDERED: Lorazepam 2 MG/ML VIAL SLOW IVP PRN (20:21)
[2018-11-11 23:40] LABS: Magnesium 1.6 mg/dL (1.6-2.6)
[2018-11-12] MEDS ORDERED: Oxybutynin ER 5 MG TAB PO PRN (00:32)
[2018-11-12] MEDS ORDERED: traMADol HCl 50 MG TAB PO PRN (00:32)
[2018-11-12] MEDS ORDERED: Calcium Carbonate 500 MG ChewTAB PO PRN (00:32)
--- NOTE | 2018-11-12 01:45 | HP ---
CHIEF COMPLAINT: Confusion. HISTORY OF PRESENT ILLNESS: Ms. Garcia is a 73-year-old woman, who was transferred here from [facility] due to confusion. The patient underwent investigations in the emergency department and noted to have UTI. The patient unable to provide much information as she is not quite sure what brought her in. She is however very much alert and oriented to person, place, day, and even knows what room number she is in. She is able to answer questions appropriately and follow commands. She denies having any complaints at this present time. Denies having any headaches or dizziness. Denies any chest pain or shortness of breath. She denies having any abdominal pain or cramping. Denies any recent changes with her bowels. Denies having any urinary symptoms. She can recollect being admitted recently due to a fall with a subsequent fracture. The patient did undergo open reduction and internal fixation. She states she has ongoing pain, but it is stable. She is otherwise without any complaints. The patient did have one moment of either uncertainty perhaps confusion regarding having had a seizure today, however, this was not indicated on the ED notes. She was however deemed to have been alert and unresponsive. PAST MEDICAL HISTORY: 1. Hypothyroidism. 2. Hiatal hernia. 3. GERD. 4. Irritable bowel syndrome. 5. Hyperlipidemia. 6. Hypertension. 7. Generalized seizures. PAST SURGICAL HISTORY: 1. Right hip surgery. 2. Tonsillectomy. SOCIAL HISTORY: No alcohol use, drug use, or smoking. ALLERGIES: 1. PENICILLIN. 2. SULFA. CURRENT MEDICATIONS: 1. Levothyroxine. 2. Ventolin. 3. Atorvastatin. 4. Amlodipine. 5. Omeprazole. 6. VESIcare. 7. Imodium. 8. Vitamin D. 9. Ferrous gluconate. 10. Tums. 11. Acetaminophen-Codeine. 12. Ultram. PHYSICAL EXAMINATION: GENERAL: The patient appears well developed, well nourished, and is in no acute distress. VITAL SIGNS: Temperature 98.3, pulse 107, respirations 24, O2 saturation 96% on 2 L by nasal cannula, and blood pressure 146/77. HEENT: Normocephalic and atraumatic. Pupils are pinpoint. Sclerae are without icterus. Oropharynx is clear. NECK: Supple. LUNGS: Clear to auscultation bilaterally. CARDIAC: Tachy. ABDOMEN: Soft, nontender, and nondistended. Normoactive bowel sounds present. No guarding or rigidity. EXTREMITIES: Without any lower leg edema or swelling. No calf tenderness. She does report discomfort to the right hip. NEUROLOGIC: Alert and oriented x3. SKIN: Without rash or jaundice. LABORATORY DATA: White blood cell count 8.5, hemoglobin 13.3, hematocrit 40.4, and platelets 333. Sodium 137, potassium 4.0, chloride 104, carbon dioxide 26, anion gap 11, BUN 15, creatinine 0.71, GFR 80, glucose 101, lactic acid 1.2, calcium 9.7, magnesium 1.6, total bilirubin 0.6, AST 32, ALT 24, alkaline phosphatase 229. Troponin I 0.027, protein 6.9, albumin 3.6, TSH 1.3144. Phenytoin was low at 4.3. Urinalysis notable for trace blood, positive nitrites, moderate leukocyte esterase, white blood cells 21 to 50, bacteria 4+. IMAGING STUDIES: Chest x-ray. No acute intrathoracic abnormality seen. Brain CT. No evidence of acute intracranial pathology. IMPRESSION AND PLAN: Ms. Garcia is a 73-year-old woman, who is being admitted for management of the following. 1. Confusion. The patient seems to be very alert and oriented to person, place, and even what room number she is in. It may be associated with urinary tract infection. Although, it is also clear whether she has experienced a seizure today. The patient was noted to having low phenytoin level, therefore given a loading dose and consult placed to Neurology. 2. Urinary tract infection. We will continue ceftriaxone. Awaiting urine culture. 3. Tachycardia. The patient with elevated heart rate of 113. She is also saturating at 95% on 2 L per nasal cannula. Given recent hip surgery and sedentary state, we will obtain a D-dimer. Chest x-ray was unremarkable. The patient denies any chest pain, cough, or hemoptysis. If D-dimer elevated, we will obtain a CT angiogram given normal kidney function. 4. Gastrointestinal prophylaxis. 5. Deep venous thrombosis prophylaxis. 6. Hypertension. We will resume home medications and monitor blood pressure. The patient's case to be discussed with attending for further recommendations. Job ID: [id number]
[2018-11-12 02:20] LABS: #Basophils 0.1 thou/uL (0.0-0.2); #Eosinphils 0.4 thou/uL (0.0-0.7); #Lymphocytes 1.4 thou/uL (1.20-3.40); #Monocytes 0.8 thou/uL (0.11-0.59); %Basophils 0.6 % (0.0-1.0); %Eosinophils 5.1 % (0.0-10.0); %Monocytes 9.2 % (0.0-10.0); %Neutrophils 69.1 % (42.0-75.0); Hemoglobin 11.1 g/dL (12.0-16.0); Mean Corpuscular HGB CONC 32.3 g/dL (32.0-36.0); Mean Corpuscular Hemoglobin 32.1 pg (27.0-31.0); Mean Corpuscular Volume 99.3 fL (78.0-98.0); Mean Platelet Volume 6.6 fL (7.4-10.4); Platelet Count 287 thou/uL (130-400); RBC Distribution Width 11.6 % (11.5-14.5); Red Blood Cell (RBC) Count 3.45 mill/uL (4.20-5.40); White Blood Cell (WBC) Count 8.7 thou/uL (4.8-10.8)
[2018-11-12 02:44] LABS: Anion Gap 13 mmol/L (10-20); BUN (Urea Nitrogen) 11 mg/dL (9.8-20.1); Calc. Creatinine Clearance 113 mL/min (70-130); Carbon Dioxide 21 mmol/L (23-31); Chloride 108 mmol/L (98-107); Estimated GFR-MDRD Greater than 90; Glucose 85 mg/dL (83-110); Potassium 3.8 mmol/L (3.5-5.1); Sodium 138 mmol/L (136-145)
[2018-11-12] MEDS: Ibuprofen 600 MG TAB PO PRN (04:22)
[2018-11-12] MEDS: Levothyroxine Sodium 50 MCG TAB PO SCH (05:48)
--- NOTE | 2018-11-12 07:27 | CT ---
CTA CHEST WITH CONTRAST AND 3D VOLUME RENDERING: Date: 11/12/18 INDICATION: Elevated D-Dimer with shortness of breath and tachycardia. FINDINGS: No significant filling defect of the pulmonary arteries is visualized. Scattered atherosclerotic vasc ular calcification is present, including coronary artery disease. There are bilateral pulmonary paren chymal opacities, predominantly subpleural in distribution, which may be related to scar and/or volum e loss. Evidence of several remote-appearing right rib fracture deformities. There is a small hiatal hernia. Scattered osseous degenerative change present. IMPRESSION: 1. No acute, significant pulmonary embolus. 2. Evidence of post-traumatic remote-appearing multifocal right rib fracture deformities. Correlate with history. 3. Scattered parenchymal opacities of the lungs bilaterally, which may be related to scar or volume loss. POS: [facility]
[2018-11-12] MEDS: Aspirin 81 mg Enteric Coated Tablet PO SCH ×2 (09:02→21:52)
[2018-11-12] MEDS: Ferrous Gluconate 324 MG TAB PO SCH (09:02)
[2018-11-12] MEDS: Famotidine/PF 20 mg/2ml Vial SLOW IVP SCH ×2 (09:03→21:52)
--- NOTE | 2018-11-12 09:50 | PDOC.PN ---
- Subjective Encounter Start Date: 11/12/18 Encounter Start Time: 08:30 Subjective: Patient sitting up in bed, denies any complaints today -: Is still on O2 here, reports does not have to use at home -: Reports she has had 'a fast heart rate' most of her life - Objective Vital Signs & Weight: Vital Signs (12 hours) Temp Pulse Resp BP BP Pulse Ox 11/12/18 07:58 98.3 F 105 H 20 128/62 95 11/12/18 05:45 98.8 F 112 H 20 129/61 96 11/12/18 00:10 98.2 F 113 H 18 137/91 H 95 Weight Weight 83.869 kg I&O: 11/11/18 11/12/18 11/13/18 06:59 06:59 06:59 Intake Total 1036 Output Total 500 Balance 536 Result Diagrams: 11/12/18 02:14 11/12/18 02:13 Phys Exam - Physical Examination HEENT: PERRLA, moist MMs Neck: no nodes, full ROM Respiratory: clear to auscultation bilateral Cardiovascular: RRR, no significant murmur Gastrointestinal: soft, non-tender Musculoskeletal: no edema, pulses present Neurological: non-focal, normal sensation, moves all 4 limbs Lymphatic: no nodes Psychiatric: normal affect, A&O x 3 Skin: no rash, normal turgor, cap refill <2 seconds Dx/Plan (1) Urinary tract infection Status: Acute (2) Hypertension Code(s): I10 - ESSENTIAL (PRIMARY) HYPERTENSION Status: Chronic Qualifiers: Hypertension type: essential hypertension Qualified Code(s): I10 - Essential (primary) hypertension (3) Hypothyroid Code(s): E03.9 - HYPOTHYROIDISM, UNSPECIFIED Status: Chronic (4) Seizure Code(s): R56.9 - UNSPECIFIED CONVULSIONS Status: Chronic Comment: acute on chronic - Plan continue antibiotics Awaiting neurology consult -: Continue ABX -: PT eval, recheck dilantin level -: CTA chest neg for PE * . Review of Systems - Review of Systems Respiratory: Shortness of Breath Genitourinary: Dysuria - Medications/Allergies Allergies/Adverse Reactions: Allergies Allergy/AdvReac Type Severity Reaction Status Date / Time Penicillins Allergy Verified 11/05/18 03:14 Sulfa (Sulfonamide Allergy Verified 11/05/18 03:14 Antibiotics) Medications: Current Medications Amlodipine Besylate (Norvasc) 2.5 mg PO QPM [facility] Aspirin (Ecotrin) 81 mg PO BID [facility] Last Admin: 11/12/18 09:02 Dose: 81 mg Atorvastatin Calcium (Lipitor) 10 mg PO HS [facility] Calcium Carbonate (Tums) 1,000 mg PO BID PRN PRN Reason: Indigestion Famotidine (Pepcid) 20 mg SLOW IVP Q12HR [facility] Last Admin: 11/12/18 09:03 Dose: 20 mg Ferrous Gluconate (Fergon) 324 mg PO DAILY [facility] Last Admin: 11/12/18 09:02 Dose: 324 mg Ceftriaxone Sodium 2 gm/ (Sodium Chloride) 100 mls @ 200 mls/hr IVPB Q24HR [facility] Ibuprofen (Motrin) 600 mg PO Q8H PRN PRN Reason: Mild Pain (1-3) Last Admin: 11/12/18 04:22 Dose: 600 mg Levothyroxine Sodium (Synthroid) 50 mcg PO 0600 [facility] Last Admin: 11/12/18 05:48 Dose: 50 mcg Oxybutynin Chloride (Ditropan Xl) 5 mg PO DAILY PRN PRN Reason: Muscle Spasm Sodium Chloride (Flush - Normal Saline) 10 ml IVF Q12HR [facility] Last Admin: 11/12/18 09:03 Dose: 10 ml Sodium Chloride (Flush - Normal Saline) 10 ml IVF PRN PRN PRN Reason: Saline Flush Tramadol HCl (Ultram) 50 mg PO Q6H PRN PRN Reason: Moderate Pain (4-6)
[2018-11-12 11:12] LABS: Free T4 (Free Thyroxine) 1.02 ng/dL (0.70-1.48); Thyroid Stimulating Hormone 0.8567 uIU/mL (0.35-4.94)
[2018-11-12] MEDS: cefTRIAXone\\ROCEPHIN 2 GM in Sodium Chloride 0.9% 100 ML IVPB SCH (14:53)
[2018-11-12] MEDS ORDERED: ISOVUE-370 76%-LOCM 1 ML ONE (17:04)
[2018-11-12] MEDS: Atorvastatin Calcium 10 MG TAB PO SCH (21:52)
[2018-11-12] MEDS: Amlodipine 5 MG TAB PO SCH (21:52)
--- NOTE | 2018-11-12 23:58 | CON ---
DATE OF CONSULTATION: 11/12/2018 CONSULTING PHYSICIAN: Hospitalist Service. IMPRESSION: 1. Possible seizure. 2. Urinary tract infection. PLAN: 1. Increase Dilantin to 400 mg per day. 2. The patient can return to the rehab. HISTORY OF PRESENT ILLNESS: Ms. Garcia is a 73-year-old woman with a known history of seizures. She has been on Dilantin for a number of years. She has been over at the [facility] recuperating from a hip replacement. She has a period of amnesia. There is no documented evidence of a definitive seizure. She was found to have urinary tract infection on urinalysis. She has been started on antibiotics. Dilantin level is 4.3. She is without any particular complaints otherwise. ALLERGIES: PENICILLIN, SULFA. MEDICATIONS: List reviewed. SOCIAL HISTORY: No tobacco or alcohol. FAMILY HISTORY: Noncontributory. REVIEW OF SYSTEMS: 10-system review of systems is otherwise negative. PHYSICAL EXAMINATION: GENERAL: She is a well-nourished elderly lady, in no acute distress. VITAL SIGNS: Have been stable. She is afebrile. HEENT: Pupils equal. Conjunctivae clear. Oropharynx clear. NECK: Supple. EXTREMITIES: No cyanosis. NEUROLOGIC: She is alert and appropriate. Speech is fluent and clear. Exam is nonfocal. DIAGNOSTIC DATA: CT scan of the brain showed some chronic small-vessel ischemic changes. EKG shows a sinus rhythm. SUMMARY: Elderly lady with history of epilepsy who has a period of amnesia. She might have had a breakthrough seizure due to her subtherapeutic level and the urinary tract infection. I would go ahead and increase her dose to 400 mg per day and I will follow up with her in the office. Job ID: [id number]
[2018-11-13] MEDS: Levothyroxine Sodium 50 MCG TAB PO SCH (05:01)
[2018-11-13 05:22] LABS: #Eosinphils 0.4 thou/uL (0.0-0.7); #Lymphocytes 1.5 thou/uL (1.20-3.40); #Monocytes 0.8 thou/uL (0.11-0.59); #Neutrophils 6.2 thou/uL (1.40-6.50); %Basophils 0.4 % (0.0-1.0); %Eosinophils 4.6 % (0.0-10.0); %Lymphocytes 16.7 % (21.0-51.0); %Monocytes 9.3 % (0.0-10.0); %Neutrophils 69.1 % (42.0-75.0); Hemoglobin 11.6 g/dL (12.0-16.0); Mean Corpuscular HGB CONC 32.9 g/dL (32.0-36.0); Mean Corpuscular Hemoglobin 32.6 pg (27.0-31.0); Mean Corpuscular Volume 99.1 fL (78.0-98.0); Mean Platelet Volume 6.3 fL (7.4-10.4); Platelet Count 308 thou/uL (130-400); RBC Distribution Width 11.6 % (11.5-14.5); Red Blood Cell (RBC) Count 3.56 mill/uL (4.20-5.40); White Blood Cell (WBC) Count 8.9 thou/uL (4.8-10.8)
[2018-11-13 05:48] LABS: ALT (SGPT) 20 U/L (8-55); AST (SGOT) 23 U/L (5-34); Albumin 3.1 g/dL (3.4-4.8); Alkaline Phosphatase 193 U/L (40-150); Anion Gap 12 mmol/L (10-20); BUN (Urea Nitrogen) 11 mg/dL (9.8-20.1); Bilirubin, Total 0.6 mg/dL (0.2-1.2); Calc. Creatinine Clearance 111 mL/min (70-130); Calcium 9.3 mg/dL (7.8-10.44); Carbon Dioxide 22 mmol/L (23-31); Chloride 107 mmol/L (98-107); Dilantin 4.5 ug/mL (10.0-20.0); Estimated GFR-MDRD Greater than 90; Globulin 2.8 g/dL (2.4-3.5); Glucose 101 mg/dL (83-110); Potassium 3.7 mmol/L (3.5-5.1); Protein, Total 5.9 g/dL (6.0-8.3); Sodium 137 mmol/L (136-145)
[2018-11-13] MEDS: Ferrous Gluconate 324 MG TAB PO SCH (08:29)
[2018-11-13] MEDS: Famotidine/PF 20 mg/2ml Vial SLOW IVP SCH (08:29)
[2018-11-13] MEDS: Aspirin 81 mg Enteric Coated Tablet PO SCH ×2 (08:29→21:01)
[2018-11-13] MEDS ORDERED: Ciprofloxacin 500 MG TAB PO SCH (13:45)
[2018-11-13] MEDS: cefTRIAXone\\ROCEPHIN 2 GM in Sodium Chloride 0.9% 100 ML IVPB SCH (14:05)
--- NOTE | 2018-11-13 16:00 | PDOC.PN ---
- Subjective Encounter Start Date: 11/13/18 Encounter Start Time: 08:30 Subjective: Patient examined, lying in bed, no acute distress -: Answers most questions appropriately, pleasantly confused -: Denies any complaints today - Objective Vital Signs & Weight: Vital Signs (12 hours) Temp Pulse Pulse Pulse Resp BP BP 11/13/18 15:22 97.4 F L 107 H 20 11/13/18 12:20 108 H 112 H 133/61 145/66 H 11/13/18 11:32 97.9 F 105 H 24 H 11/13/18 07:50 97.7 F 106 H 24 H 11/13/18 04:00 99.4 F 104 H 19 BP Pulse Ox 11/13/18 15:22 142/65 H 91 L 11/13/18 12:20 11/13/18 11:32 127/77 95 11/13/18 07:50 130/60 94 L 11/13/18 04:00 137/60 96 Weight Weight 83.869 kg I&O: 11/12/18 11/13/18 11/14/18 06:59 06:59 06:59 Intake Total 1036 1080 40 Output Total 500 740 Balance 536 340 40 Result Diagrams: 11/13/18 04:56 11/13/18 04:56 Phys Exam - Physical Examination Neck: no nodes, no JVD Respiratory: clear to auscultation bilateral Cardiovascular: RRR Gastrointestinal: soft, non-tender Musculoskeletal: pulses present Neurological: non-focal, normal sensation Lymphatic: no nodes Psychiatric: normal affect, A&O x 3 pleasantly confused, thought it was Monday Skin: no rash, normal turgor Dx/Plan (1) Urinary tract infection Status: Acute Plan: Patient pulled out her IV, cipro on S/S from Micro, changed to PO cipro BID (2) Hypertension Code(s): I10 - ESSENTIAL (PRIMARY) HYPERTENSION Status: Chronic Qualifiers: Hypertension type: essential hypertension Qualified Code(s): I10 - Essential (primary) hypertension (3) Hypothyroid Code(s): E03.9 - HYPOTHYROIDISM, UNSPECIFIED Status: Chronic (4) Seizure Code(s): R56.9 - UNSPECIFIED CONVULSIONS Status: Chronic Comment: acute on chronic - Plan cont current plan of care, continue antibiotics Patient was going to be d/c'd to [facility] but we are waiting for pre-auth -: for patient to return, changed ABX to po, no seizures on this -: hospitalization, will continue to monitor * .
[2018-11-13] MEDS: Amlodipine 5 MG TAB PO SCH (21:01)
[2018-11-13] MEDS: Ciprofloxacin 500 MG TAB PO SCH (21:01)
[2018-11-13] MEDS: Famotidine 20 MG TAB PO SCH (21:01)
[2018-11-13] MEDS: Atorvastatin Calcium 10 MG TAB PO SCH (21:02)
[2018-11-13] MEDS: Ibuprofen 600 MG TAB PO PRN (21:14)
--- NOTE | 2018-11-14 02:14 | DIS ---
DATE OF ADMISSION: 11/11/2018 DATE OF DISCHARGE: 11/13/2018 PRIMARY CARE PHYSICIAN: Dr. Gallardo. CONSULTANTS: Dr. Leal. PROCEDURES: 1. The patient had a brain CT showed no evidence of acute intracranial pathology. 2. Had a chest x-ray, no acute intrathoracic abnormality. 3. Chest thorax CTA, no evidence of significant pulmonary emboli. Evidence of posttraumatic remote appearing multifocal right rib fracture deformities. Scattered parenchymal opacities in the lungs bilaterally which may be related to scar or volume loss. HOSPITAL COURSE: Ms. Garcia is a 73-year-old female who reported to the emergency room for evaluation of mental status changes. The patient was brought over by EMS for evaluation of altered mental status. Per jail staff, the patient was last seen normal the day before. The patient was discharged from here on 11/08/2018, after status post open reduction and internal fixation of the left intertrochanteric hip fracture. While in the emergency room, the patient was found to have a nitrite positive UTI. Micro final urine culture showed E coli, which was susceptible to the Rocephin she was started on. The patient had an evaluation by Dr. Leal, Neurology for possible seizure with a known history of seizures. He increased her Dilantin to 400 mg per day and recommended followup with him in his office. The patient has improved. Vital signs remained stable. Lab values remained stable. The patient was subsequently discharged back to the [facility] with a prescription for Cipro 500 mg p.o. b.i.d. x5 days. DISCHARGE DIAGNOSES: 1. Altered mental status, encephalopathy, most likely related to urinary tract infection. 2. Urinary tract infection. 3. Tachycardia, stable. The patient's vital signs reviewed on the last 3 admissions and the patient's heart rate is in the 100s on all 3 visits. 4. Hypertension. REVIEW OF SYSTEMS: The patient denies any chest pain, shortness of breath, or palpitations. Does report some residual right-sided hip pain related to her surgery, but reports that it is mild. All other systems reviewed and are negative unless mentioned in the HPI/hospital course. PHYSICAL EXAMINATION: VITAL SIGNS: Temperature is 97.9, pulse is 105, respirations 24, O2 saturation 95% on room air, blood pressure 127/77. CONSTITUTIONAL: The patient appears nontoxic, is alert and oriented to person, place and time. HEENT: Head is atraumatic and normocephalic. Eyes; conjunctivae normal. Sclerae normal. ENT; mucous membranes are moist. Mouth exam is normal. NECK: Normal range of motion. Trachea is midline. RESPIRATORY/CHEST: Breath sounds are clear. Chest expansion is equal. CARDIOVASCULAR: The patient is tachycardic. Heart sounds are normal. ABDOMEN: Nontender. Bowel sounds are heard. EXTREMITIES: Upper extremity, normal range of motion, radial pulses equal bilaterally. Lower extremity, incision site to right upper leg and hip. Pulses equal bilaterally. NEURO: The patient is oriented to person, place, and time. SKIN: Warm, dry, normal in color. ALLERGIES: PENICILLINS AND SULFA. HOME MEDICATIONS: Restarted. 1. Tylenol 1000 mg p.o. q.6 hours. 2. Amlodipine 2.5 mg p.o. q.p.m. 3. Atorvastatin 10 mg p.o. at bedtime. 4. Calcium carbonate 1000 mg p.o. b.i.d. 5. Cyclobenzaprine 5 mg p.o. t.i.d. p.r.n. 6. Ferrous gluconate 324 mg p.o. daily. 7. Motrin 600 mg p.o. q.8 hours p.r.n. 8. Levothyroxine 50 mcg p.o. q.a.m. 9. Imodium 2 mg p.o. q.4 hours as needed. 10. Oxybutynin 5 mg p.o. daily. 11. Protonix 20 mg p.o. b.i.d. 12. Aspirin 81 mg p.o. b.i.d. 13. Tramadol 50 mg p.o. q.6 hours as needed p.r.n. pain. On this visit, we added Cipro 500 mg p.o. b.i.d., increased Dilantin from 300 to 400 mg p.o. at bedtime. DISCHARGE CONDITION: Stable. DISCHARGE DISPOSITION: The patient will be discharged back to the [facility]. FOLLOWUP: Follow up with Dr. Gallardo within 1 week. Job ID: [id number]
[2018-11-14] MEDS: Levothyroxine Sodium 50 MCG TAB PO SCH (05:11)
[2018-11-14] MEDS: Ciprofloxacin 500 MG TAB PO SCH (05:12)
[2018-11-14] MEDS: Famotidine 20 MG TAB PO SCH (08:41)
[2018-11-14] MEDS: Aspirin 81 mg Enteric Coated Tablet PO SCH (08:41)
[2018-11-14] MEDS: Ferrous Gluconate 324 MG TAB PO SCH (08:41)
--- NOTE | 2018-11-14 10:42 | PDOC.PN ---
- Subjective Encounter Start Date: 11/14/18 Encounter Start Time: 10:30 Subjective: Patient examined today, updated on pending dc -: Denies any complaints today - Objective Vital Signs & Weight: Vital Signs (12 hours) Temp Pulse Resp BP Pulse Ox 11/14/18 08:00 97.6 F 92 20 148/68 H 98 11/14/18 04:00 97.9 F 90 17 132/63 98 11/13/18 23:57 97.8 F 98 20 141/65 H 95 Weight Weight 83.869 kg I&O: 11/13/18 11/14/18 11/15/18 06:59 06:59 06:59 Intake Total 1080 700 120 Output Total 740 1100 Balance 340 -400 120 Result Diagrams: 11/13/18 04:56 11/13/18 04:56 Phys Exam - Physical Examination HEENT: PERRLA, moist MMs Neck: no nodes, no JVD Respiratory: clear to auscultation bilateral Cardiovascular: RRR, no significant murmur Gastrointestinal: soft Musculoskeletal: no edema, pulses present Neurological: moves all 4 limbs Lymphatic: no nodes Psychiatric: normal affect, A&O x 3 Dx/Plan (1) Urinary tract infection Status: Acute (2) Hypertension Code(s): I10 - ESSENTIAL (PRIMARY) HYPERTENSION Status: Chronic Qualifiers: Hypertension type: essential hypertension Qualified Code(s): I10 - Essential (primary) hypertension (3) Hypothyroid Code(s): E03.9 - HYPOTHYROIDISM, UNSPECIFIED Status: Chronic (4) Seizure Code(s): R56.9 - UNSPECIFIED CONVULSIONS Status: Chronic Comment: acute on chronic - Plan cont current plan of care Will continue PO ABX -: Will dc back to [place] once approved * . Review of Systems - Review of Systems Musculoskeletal: Leg Pain (mild left leg pain s/p hip surgery) - Medications/Allergies Allergies/Adverse Reactions: Allergies Allergy/AdvReac Type Severity Reaction Status Date / Time Penicillins Allergy Verified 11/05/18 03:14 Sulfa (Sulfonamide Allergy Verified 11/05/18 03:14 Antibiotics) Medications: Current Medications Amlodipine Besylate (Norvasc) 2.5 mg PO QPM [facility] Last Admin: 11/13/18 21:01 Dose: 2.5 mg Aspirin (Ecotrin) 81 mg PO BID [facility] Last Admin: 11/14/18 08:41 Dose: 81 mg Atorvastatin Calcium (Lipitor) 10 mg PO [facility] Last Admin: 11/13/18 21:02 Dose: 10 mg Calcium Carbonate (Tums) 1,000 mg PO BID PRN PRN Reason: Indigestion Ciprofloxacin (Cipro) 500 mg PO 00,1999 [facility] Last Admin: 11/14/18 05:12 Dose: 500 mg Famotidine (Pepcid) 20 mg PO Q12HR [facility] Last Admin: 11/14/18 08:41 Dose: 20 mg Ferrous Gluconate (Fergon) 324 mg PO DAILY [facility] Last Admin: 11/14/18 08:41 Dose: 324 mg Ibuprofen (Motrin) 600 mg PO Q8H PRN PRN Reason: Mild Pain (1-3) Last Admin: 11/13/18 21:14 Dose: 600 mg Levothyroxine Sodium (Synthroid) 50 mcg PO 0600 [facility] Last Admin: 11/14/18 05:11 Dose: 50 mcg Oxybutynin Chloride (Ditropan Xl) 5 mg PO DAILY PRN PRN Reason: Muscle Spasm Phenytoin Sodium (Dilantin Er) 400 mg PO [facility] Last Admin: 11/13/18 21:02 Dose: 400 mg Sodium Chloride (Flush - Normal Saline) 10 ml IVF Q12HR [facility] Last Admin: 11/14/18 08:42 Dose: Not Given Sodium Chloride (Flush - Normal Saline) 10 ml IVF PRN PRN PRN Reason: Saline Flush Tramadol HCl (Ultram) 50 mg PO Q6H PRN PRN Reason: Moderate Pain (4-6)
[2018-11-14 12:28] VITALS: BP 133/72; TEMP 97.7
--- NOTE | 2018-11-15 09:54 | SS ---
DATE OF ADMISSION: 11/11/2018 DATE OF DISCHARGE: 11/14/2018 ADDENDUM: Addendum to the discharge summary/shot stay summary dictated on 11/13/2018. The patient was supposed to be discharged on 11/13/2018 back to the [facility], but the [facility] required a preauthorization from the patient's insurance, which was finalized on 11/14/2018. The patient is subsequently discharged to the [facility] as previously dictated. The patient will need to have Dilantin and albumin levels rechecked in 5 days. Otherwise, see discharge summary for more details on actual discharge and hospital stay. Job ID: [id number]
== END 2018-11-14 15:51 | disposition home or self-care (01) ==
LOC: ERS 12:13 → ERHOLD 15:23 → 2SE 19:14
PROVIDERS: ADMIT Family Medicine; ATTEND Family Medicine
DX: G93.40 Encephalopathy, unspecified (principal); N39.0 Urinary tract infection, site not specified; R00.0 Tachycardia, unspecified; I10 Essential (primary) hypertension; E03.9 Hypothyroidism, unspecified; K44.9 Diaphragmatic hernia without obstruction or gangrene; E78.5 Hyperlipidemia, unspecified; Z79.82 Long term (current) use of aspirin; Z79.899 Other long term (current) drug therapy; Z88.0 Allergy status to penicillin; Z88.2 Allergy status to sulfonamides
CPT/HCPCS: 51701; 70450; 71045; 71275; 80048; 80053; 80185 ×3; 82550; 83605; 83735; 84146; 84439; 84443; 84481; 84484; 85025 ×2; 85379; 87040; 87077; 87086; 87186; 93005; 94760; 96361 ×3; 96365; 96366; 96367; 96375 ×2; 96376 ×2; 97110; 97139 ×2; 97530 ×2; 99285; G0378 ×3; 36415; 81003; 81015; A4353; J0696; J2060; J3490; J7050; Q2009; Q9966; S0028

== ENCOUNTER 2019-03-06 10:13 | Outpatient (CLI) | payer MEDICARE ==
--- NOTE | 2019-03-06 11:16 | MMO ---
Bilateral MAMMO Bilat Screen [facility]DI+PATRICIA. CLINICAL HISTORY: Patient is 73 years old and is seen for screening. The patient has no family history of breast cancer. The patient has a history of Skin cancer. VIEWS: The views performed were: bilateral craniocaudal with tomosynthesis and bilateral mediolateral oblique with tomosynthesis. FILMS COMPARED: The present examination has been compared to prior imaging studies performed at [facility] on 10/03/2017, and at [facility] on 04/17/2015 and 09/16/2016. MAMMOGRAM FINDINGS: There are scattered fibroglandular densities. There is an area of architectural distortion seen in the CC view only seen in the central region of the right breast. In the left breast, there are no suspicious masses, calcifications or areas of architectural distortion. IMPRESSION: AREA OF ARCHITECTURAL DISTORTION IN THE RIGHT BREAST REQUIRES ADDITIONAL EVALUATION. RECOMMEND DIAGNOSTIC MAMMOGRAM. ULTRASOUND MAY ALSO PROVE USEFUL AT RECALL. THE RESULTS OF THIS EXAM WERE SENT TO THE PATIENT. ACR BI-RADS Category 0 - Incomplete: Need additional imaging evaluation. [facility] will notify the patient of the need for additional imaging services. MAMMOGRAPHY NOTE: 1. A negative mammogram report should not delay a biopsy if a dominant of clinically suspicious mass is present. 2. Approximately 10% to 15% of breast cancers are not detected by mammography. 3. Adenosis and dense breasts may obscure an underlying neoplasm. Reported by: DEANNA LEON MD Electonically Signed: [id number]
== END 2019-03-06 10:14 | disposition home or self-care (01) ==
LOC: BICMAMMO 10:13
PROVIDERS: ATTEND Internal Medicine
DX: Z12.31 Encounter for screening mammogram for malignant neoplasm of breast (principal); N64.59 Other signs and symptoms in breast
CPT/HCPCS: 77063; 77067

== ENCOUNTER 2019-03-13 09:56 | Outpatient (CLI) | payer MEDICARE ==
--- NOTE | 2019-03-13 10:27 | MMO ---
Right Breast MAMMO Unilat Diag [facility]DI RT+PATRICIA. CLINICAL HISTORY: Patient is 73 years old and is seen for additional evaluation requested from prior study. The patient has no family history of breast cancer. The patient has a history of Skin cancer. VIEWS: The views performed were: right craniocaudal spot compression with tomosynthesis and right mediolateral with tomosynthesis. FILMS COMPARED: The present examination has been compared to prior imaging studies performed at [facility] on 10/03/2017 and 03/06/2019, and at [facility] on 09/16/2016. MAMMOGRAM FINDINGS: There are scattered fibroglandular densities. The asymmetry seen at screening mammography does not persist at additional imaging, compatible with superimposed tissue. There are no suspicious masses, suspicious calcifications, or new areas of architectural distortion. IMPRESSION: THERE IS NO MAMMOGRAPHIC EVIDENCE OF MALIGNANCY. A ROUTINE FOLLOW-UP MAMMOGRAM IN 1 YEAR IS RECOMMENDED. THE RESULTS OF THIS EXAM WERE SENT TO THE PATIENT. ACR BI-RADS Category 2 - Benign finding MAMMOGRAPHY NOTE: 1. A negative mammogram report should not delay a biopsy if a dominant of clinically suspicious mass is present. 2. Approximately 10% to 15% of breast cancers are not detected by mammography. 3. Adenosis and dense breasts may obscure an underlying neoplasm. Reported by: DEANNA LEON MD Electonically Signed: [id number]
== END 2019-03-13 09:57 | disposition home or self-care (01) ==
LOC: BICMAMMO 09:56
PROVIDERS: ATTEND Internal Medicine
DX: N63.10 Unspecified lump in the right breast, unspecified quadrant (principal)
CPT/HCPCS: 77065; G0279

== ENCOUNTER 2019-06-24 15:26 | Emergency (ER) | payer MEDICARE ==
[2019-06-24] MEDS ORDERED: HYDROcodone/Acetaminophen 5/325 mg Tablet ONE (17:20)
[2019-06-24] MEDS ORDERED: Ketorolac Tromethamine 30 MG/ML VIAL ONE (18:07)
[2019-06-24] MEDS ORDERED: Cyclobenzaprine 10 MG TAB ONE (18:07)
--- NOTE | 2019-06-24 18:11 | CT ---
CT LUMBAR SPINE WITHOUT CONTRAST: Indications: Trauma. Fall. Comparison: None available. FINDINGS: There are compression deformities with vertebroplasty changes involving the L2 and L5 vertebra. Centr al compression of L2 results in central height loss at L2. There is generalized height loss at L5. Mi ld superior endplate compression of L3. The L1 and L4 vertebra maintain height. There is osteopenia. There is no retropulsion. Mild broad based disc bulge at L1-2 without significant central canal steno sis. L2-3: Mild diffuse disc bulge without central canal stenosis. L3-4: Mild diffuse disc bulge. No central canal stenosis. L4-5: Mild disc bulge. Prominent facet hypertrophy. No central canal stenosis. L5-S1: Mild disc bulge without significant central canal stenosis. IMPRESSION: Osteopenia. There are compression deformities with probable vertebroplasty procedures at L5 and L2. N o acute process identified. POS: OFF
== END 2019-06-24 21:15 | disposition home or self-care (01) ==
LOC: ERS 15:26
DX: M54.5 Low back pain (principal); K21.9 Gastro-esophageal reflux disease without esophagitis; I10 Essential (primary) hypertension; E03.9 Hypothyroidism, unspecified; E78.5 Hyperlipidemia, unspecified; Z79.899 Other long term (current) drug therapy; W19.XXXA Unspecified fall, initial encounter
CPT/HCPCS: 72131; 96372; J1885

== ENCOUNTER 2019-06-26 14:07 | Inpatient (IN) | payer MEDICARE ==
[2019-06-26 15:52] LABS: #Eosinphils 0.1 thou/uL (0.0-0.7); #Lymphocytes 1.4 thou/uL (1.20-3.40); #Neutrophils 7.8 thou/uL (1.40-6.50); %Basophils 0.1 % (0.0-1.0); %Eosinophils 1.1 % (0.0-10.0); %Lymphocytes 13.6 % (21.0-51.0); %Monocytes 9.3 % (0.0-10.0); %Neutrophils 75.9 % (42.0-75.0); Hemoglobin 15.8 g/dL (12.0-16.0); Mean Corpuscular HGB CONC 33.4 g/dL (32.0-36.0); Mean Corpuscular Hemoglobin 32.9 pg (27.0-31.0); Mean Corpuscular Volume 98.5 fL (78.0-98.0); Mean Platelet Volume 7.2 fL (7.4-10.4); Platelet Count 219 thou/uL (130-400); RBC Distribution Width 11.6 % (11.5-14.5); Red Blood Cell (RBC) Count 4.81 mill/uL (4.20-5.40); White Blood Cell (WBC) Count 10.3 thou/uL (4.8-10.8)
--- NOTE | 2019-06-26 16:06 | RAD ---
XR Chest 1 View Portable HISTORY: Multiple falls, seizure, low back pain COMPARISON: 11/11/2018 FINDINGS: The heart is enlarged. The lungs are expanded without lobar consolidation, pneumothoraces, mary pulmonary edema or large effusions. There are degenerative changes in the spine.
[2019-06-26 16:10] LABS: Bacteria/HPF 4+ HPF (None Seen); Bilirubin Negative (Negative); Blood, Urine 1+ (Negative); Clarity Extra Turbid (Clear); Glucose, Urine (Dipstick) Normal (Negative); Leukocyte 500 Leu/uL (Negative); Nitrite Negative (Negative); Protein, Urine (Dipstick) 70 mg/dL (Neg-Trace); RBC/HPF 21-50 HPF (0-3); WBC/HPF Greater than 50 HPF (0-3)
[2019-06-26 16:12] LABS: ALT (SGPT) 28 U/L (8-55); AST (SGOT) 51 U/L (5-34); Albumin 3.9 g/dL (3.4-4.8); Alkaline Phosphatase 239 U/L (40-110); Anion Gap 15 mmol/L (10-20); BUN (Urea Nitrogen) 19 mg/dL (9.8-20.1); Bilirubin, Total 0.8 mg/dL (0.2-1.2); CK (CPK) 760 U/L (29-168); Calc. Creatinine Clearance 0 mL/min (70-130); Calcium 10.5 mg/dL (7.8-10.44); Carbon Dioxide 26 mmol/L (23-31); Chloride 102 mmol/L (98-107); Estimated GFR-MDRD 69; Globulin 3.6 g/dL (2.4-3.5); Glucose 98 mg/dL (83-110); Magnesium 2.3 mg/dL (1.6-2.6); Protein, Total 7.5 g/dL (6.0-8.3); Sodium 139 mmol/L (136-145)
[2019-06-26 16:16] LABS: Mucous/LPF 4+ LPF (<2+)
[2019-06-26 16:17] LABS: Squamous Epithelial 0-3 HPF (0-3)
--- NOTE | 2019-06-26 16:18 | CT ---
CT Brain WO Con History: Trauma Comparison: CT brain November 11, 2018 Findings: Moderate chronic microvascular ischemic changes. Extensive periventricular and deep white m atter microangiopathic changes. The calvarium is intact. Paranasal sinuses and mastoids are clear. There is ossification of the anter ior falx on the right. Impression: Chronic findings. No acute intracranial abnormality.
[2019-06-26] MEDS ORDERED: Acetaminophen 500 MG TAB ONE (16:38)
[2019-06-26] MEDS ORDERED: Morphine 2 MG/ML SYRINGE ONE (17:08)
[2019-06-26] MEDS ORDERED: cefTRIAXone\\ROCEPHIN 1 GM VIAL ONE (17:55)
[2019-06-26] MEDS ORDERED: Acetaminophen 325 MG TAB PO PRN (20:33)
[2019-06-26] MEDS ORDERED: hydrALAZINE 20 MG/ML VIAL SLOW IVP PRN (20:39)
[2019-06-26 21:04] LABS: #Eosinphils 0.3 thou/uL (0.0-0.7); #Lymphocytes 1.5 thou/uL (1.20-3.40); #Monocytes 1.1 thou/uL (0.11-0.59); #Neutrophils 7.8 thou/uL (1.40-6.50); %Basophils 0.2 % (0.0-1.0); %Eosinophils 2.6 % (0.0-10.0); %Lymphocytes 13.9 % (21.0-51.0); %Monocytes 10.6 % (0.0-10.0); %Neutrophils 72.7 % (42.0-75.0); Hemoglobin 14.8 g/dL (12.0-16.0); Mean Corpuscular HGB CONC 32.8 g/dL (32.0-36.0); Mean Corpuscular Hemoglobin 32.4 pg (27.0-31.0); Mean Corpuscular Volume 98.8 fL (78.0-98.0); Mean Platelet Volume 7.6 fL (7.4-10.4); Platelet Count 189 thou/uL (130-400); RBC Distribution Width 11.5 % (11.5-14.5); Red Blood Cell (RBC) Count 4.57 mill/uL (4.20-5.40); White Blood Cell (WBC) Count 10.8 thou/uL (4.8-10.8)
--- NOTE | 2019-06-26 21:12 | HP ---
PRESENTING COMPLAINT: Fall with weakness. HISTORY OF PRESENT ILLNESS: Ms. Radha Watson is a 74-year-old female with past medical history of hypertension, hypothyroidism, and chronic low back pain who presented because of worsening low back pain associated with recurrent falls at home. The patient lives alone and has been having this intense lower back pain since the last one week after she had a fall. She was seen in the ED 3 days ago and discharged home. The patient states she is barely able to ambulate or transfer. She was brought in by the daughter today who is requesting rehab as much as possible. The patient denies any nausea or vomiting. She admits to decreased urine output. She admits to increased thirst from not eating since that fall. She denies any fever or chills. She states she has also not been taking her medications since the last 3 days. PAST MEDICAL HISTORY: Significant for hypertension, hypothyroidism, history of seizure disorder and last episode was over 3 years ago. History of chronic low back pain. History of hyperlipidemia, history of irritable bowel syndrome. PAST SURGICAL HISTORY: Right hip surgery, tonsillectomy. ALLERGIES: PENICILLIN WELL SULFA. HOME MEDICATIONS: See med full medication list. REVIEW OF SYSTEMS: All systems reviewed x14 were negative except mentioned above. FAMILY HISTORY: Noncontributory in this 74-year-old female. PHYSICAL EXAMINATION: CURRENT VITAL SIGNS: Blood pressure of 159/66, pulse of 115, respiratory rate of 19, temperature afebrile at 97, and O2 saturation 95% on room air. GENERAL: Obese elderly female, lying in bed, in mild pain distress. HEENT: Head is atraumatic, normocephalic. No periorbital edema or bruise. Pupils equal, reactive to light. Extraocular motor movement intact. Dry oral mucosa, but no mucosal bleed. NECK: No JVD. No carotid bruit. RESPIRATORY: Good air entry bilaterally. No crepitation. CARDIOVASCULAR: S1, S2. Rate and rhythm regular. GI: Obese abdomen. Bowel sounds positive in all 4 quadrants. EXTREMITIES: No pedal edema. No calf tenderness. BACK: Extremity tenderness. The tenderness seems to be worse around the mid thoracic area. LABORATORY DATA: Urinalysis shows greater than 50 WBC, 21-50 RBCs and 4+ bacteria. Potassium 4.0, creatinine 0.8, AST, ALT normal. Alkaline phosphatase elevated at 239. CK of 760 with troponin of 0.017. TSH of 1.1 with sodium 139. WBC 10.3, hemoglobin 15, platelets 219. Chest x-ray shows enlarged heart, clear lungs with no consolidation or effusions and degenerative changes in the spine. Head CT shows chronic findings. No acute intracranial abnormality. Lumbar spine CT from 2 days ago during ER visit shows bulging of the L2-S1 area with no central canal stenosis, osteopenia and compression deformities. No acute process identified. IMPRESSION: 1. Intractable back pain. 2. Urinary tract infection. 3. Hypertension-uncontrolled. 4. Hypothyroidism-controlled. 5. Rhabdomyolysis-mild. PLAN: We will admit the patient to inpatient status. We start the patient on antibiotics with Levaquin for the UTI. We will follow urine culture. We will start gentle IV fluids given patient having mild rhabdomyolysis from recent prolonged stay at the floor. We will consult PT and OT with adequate pain management with p.r.n. [place], IV p.r.n. hydralazine. We will resume patient's home medication regimen. We will do subcutaneous Lovenox for DVT prophylaxis. We will consult case management for help with SNF placement. We will do subcutaneous IV fluid as tolerated. ADVANCED DIRECTIVES: The patient wishes to be DNR. Total time spent in review of record, discussion with the patient and evaluation greater than 60 minutes. Expected hospital stay for more than 3 days. Job ID: [id number]
[2019-06-26 22:37] LABS: Chloride 109 mmol/L (98-107); Potassium 3.9 mmol/L (3.5-5.1); Sodium 140 mmol/L (136-145)
[2019-06-26 22:38] LABS: Glucose 82 mg/dL (83-110)
[2019-06-26 22:39] LABS: Anion Gap 16 mmol/L (10-20); Carbon Dioxide 19 mmol/L (23-31)
[2019-06-26 22:41] LABS: Calc. Creatinine Clearance 0 mL/min (70-130); Estimated GFR-MDRD 89
[2019-06-26 22:42] LABS: BUN (Urea Nitrogen) 17 mg/dL (9.8-20.1)
[2019-06-26 22:46] VITALS: BMI 29.2
[2019-06-26] MEDS: Sodium Chloride 0.9% 1,000 ML IV SCH (23:00)
[2019-06-26] MEDS ORDERED: Famotidine 20 MG TAB PO SCH (23:00)
[2019-06-26] MEDS: Aspirin 81 mg Enteric Coated Tablet PO SCH (23:05)
[2019-06-27 05:22] LABS: #Eosinphils 0.3 thou/uL (0.0-0.7); #Lymphocytes 1.6 thou/uL (1.20-3.40); #Monocytes 0.9 thou/uL (0.11-0.59); #Neutrophils 6.2 thou/uL (1.40-6.50); %Basophils 0.4 % (0.0-1.0); %Eosinophils 2.9 % (0.0-10.0); %Monocytes 10.4 % (0.0-10.0); %Neutrophils 68.3 % (42.0-75.0); Hemoglobin 13.8 g/dL (12.0-16.0); Mean Corpuscular HGB CONC 32.7 g/dL (32.0-36.0); Mean Corpuscular Hemoglobin 32.3 pg (27.0-31.0); Mean Corpuscular Volume 98.8 fL (78.0-98.0); Mean Platelet Volume 7.2 fL (7.4-10.4); Platelet Count 206 thou/uL (130-400); RBC Distribution Width 11.6 % (11.5-14.5); Red Blood Cell (RBC) Count 4.29 mill/uL (4.20-5.40)
[2019-06-27] MEDS: Morphine 2 MG/ML SYRINGE SLOW IVP PRN ×3 (05:23→22:36)
[2019-06-27 05:58] LABS: ALT (SGPT) 20 U/L (8-55); AST (SGOT) 35 U/L (5-34); Albumin 3.1 g/dL (3.4-4.8); Alkaline Phosphatase 196 U/L (40-110); Anion Gap 13 mmol/L (10-20); BUN (Urea Nitrogen) 16 mg/dL (9.8-20.1); Bilirubin, Total 0.5 mg/dL (0.2-1.2); Calc. Creatinine Clearance 93 mL/min (70-130); Calcium 8.8 mg/dL (7.8-10.44); Carbon Dioxide 19 mmol/L (23-31); Chloride 109 mmol/L (98-107); Estimated GFR-MDRD Greater than 90; Globulin 2.9 g/dL (2.4-3.5); Glucose 69 mg/dL (83-110); Magnesium 1.8 mg/dL (1.6-2.6); Potassium 3.7 mmol/L (3.5-5.1); Sodium 137 mmol/L (136-145)
[2019-06-27] MEDS: Sodium Chloride 0.9% 1,000 ML IV SCH ×3 (07:00→20:11)
[2019-06-27] MEDS ORDERED: Prevnar 13-Val Conj/PF 0.5 ML SYRINGE IM ONE (09:00)
[2019-06-27] MEDS: Famotidine 20 MG TAB PO SCH ×2 (09:06→20:11)
[2019-06-27] MEDS: Aspirin 81 mg Enteric Coated Tablet PO SCH ×2 (09:06→20:10)
[2019-06-27] MEDS: Enoxaparin Sodium 40 MG/0.4 ML SYRINGE SC SCH (09:06)
[2019-06-27] MEDS: Amlodipine 10 MG TAB PO SCH (09:11)
--- NOTE | 2019-06-27 13:55 | PDOC.HOSPP ---
- Subjective Encounter Date: 06/27/19 Encounter Time: 13:50 - Objective Vital Signs & Weight: Vital Signs (12 hours) Temp Pulse Resp BP BP Pulse Ox 06/27/19 12:00 97.6 F 100 20 105/67 93 L 06/27/19 09:11 101 H 124/75 06/27/19 08:00 93 L 06/27/19 07:54 97.3 F L 101 H 20 124/75 93 L 06/27/19 03:49 97.6 F 105 H 18 122/74 93 L Weight Admit Weight 170 lb 7 oz Weight 170 lb 7 oz I&O: 06/26/19 06/27/19 06/28/19 06:59 06:59 06:59 Intake Total 500 Output Total 250 Balance 250 Result Diagrams: 06/27/19 05:00 06/27/19 04:59 Hospitalist ROS - Medication Medications: Active Medications Generic Name Dose Route Start Last Admin Trade Name Freq PRN Reason Stop Dose Admin Amlodipine Besylate 10 mg 06/27/19 09:00 06/27/19 09:11 Norvasc PO 10 mg DAILY CARMELO Administration Aspirin 81 mg 06/26/19 21:00 06/27/19 09:06 Ecotrin PO 81 mg BID CARMELO Administration Enoxaparin Sodium 40 mg 06/27/19 09:00 06/27/19 09:06 Lovenox SC 40 mg 0900 CARMELO Administration Famotidine 20 mg 06/27/19 09:00 06/27/19 09:06 Pepcid PO 20 mg BID CARMELO Administration Sodium Chloride 1,000 mls @ 100 mls/hr 06/26/19 21:00 06/27/19 09:08 Normal Saline 0.9% IV 1,000 mls .Q10H CARMELO Administration Morphine Sulfate 2 mg 06/26/19 20:39 06/27/19 05:23 Morphine SLOW IVP 2 mg Q4H PRN Administration Pain Phenytoin Sodium 400 mg 06/26/19 21:00 06/26/19 23:05 Dilantin Er PO 400 mg HS CARMELO Administration - Exam General Appearance: awake alert Neck: no JVD Heart: RRR, no murmur Respiratory: CTAB Gastrointestinal: soft, normal bowel sounds Extremities: no edema Hosp A/P (1) Intractable back pain Code(s): M54.9 - DORSALGIA, UNSPECIFIED Status: Acute (2) Hypothyroid Code(s): E03.9 - HYPOTHYROIDISM, UNSPECIFIED Status: Chronic Qualifiers: Hypothyroidism type: unspecified Qualified Code(s): E03.9 - Hypothyroidism , unspecified (3) Seizure Code(s): R56.9 - UNSPECIFIED CONVULSIONS Status: Chronic (4) Dyslipidemia Code(s): E78.5 - HYPERLIPIDEMIA, UNSPECIFIED Status: Chronic (5) Hypertension Code(s): I10 - ESSENTIAL (PRIMARY) HYPERTENSION Status: Chronic Qualifiers: Hypertension type: essential hypertension Qualified Code(s): I10 - Essential (primary) hypertension - Plan analgesia, PT/OT rehab referral cont home meds has pyuria, on antibx, no urine C&S mild elevation CK, not to level of rhabdomyolysis
[2019-06-28] MEDS: HYDROcodone/Acetaminophen 5/325 mg Tablet PO PRN ×3 (03:16→20:37)
[2019-06-28] MEDS: Sodium Chloride 0.9% 1,000 ML IV SCH ×3 (03:18→22:31)
[2019-06-28] MEDS ORDERED: Sodium Chloride 0.65% Nasal 44 ML BOT EA NARE PRN (07:51)
[2019-06-28] MEDS ORDERED: Artificial Tears 18 DROP/0.9 ML EA EYE PRN (07:51)
[2019-06-28] MEDS ORDERED: Loperamide HCl 2 MG CAP PO PRN (07:51)
[2019-06-28] MEDS ORDERED: Metoclopramide HCl 10 MG TAB PO PRN (07:51)
[2019-06-28] MEDS ORDERED: Bisacodyl 10 MG SUPP PR PRN (07:51)
[2019-06-28] MEDS ORDERED: Loratadine 10 MG TAB PO PRN (07:51)
[2019-06-28] MEDS ORDERED: Diabetic Tussin 200 MG/10 ML UDCUP PO PRN (07:51)
[2019-06-28] MEDS ORDERED: Cepastat Lozenges 1 LOZ PO PRN (07:51)
[2019-06-28] MEDS ORDERED: Zolpidem Tartrate 5 MG TAB PO PRN (07:51)
[2019-06-28] MEDS ORDERED: Calcium Carbonate 500 MG ChewTAB PO PRN (07:51)
[2019-06-28] MEDS: Multivitamin W/ Minerals 1 TAB PO SCH (09:20)
[2019-06-28] MEDS: Famotidine 20 MG TAB PO SCH ×2 (09:20→20:36)
[2019-06-28] MEDS: Aspirin 81 mg Enteric Coated Tablet PO SCH ×2 (09:21→20:36)
[2019-06-28] MEDS: Folic Acid 1 MG TAB PO SCH (09:21)
[2019-06-28] MEDS: Cyanocobalamin 1000 MCG/ML VIAL IM SCH (09:21)
[2019-06-28] MEDS: Enoxaparin Sodium 40 MG/0.4 ML SYRINGE SC SCH (09:22)
[2019-06-28] MEDS: Amlodipine 10 MG TAB PO SCH (11:36)
--- NOTE | 2019-06-28 12:00 | PDOC.HOSPP ---
- Subjective Encounter Date: 06/28/19 Encounter Time: 08:30 Subjective: Patient seen and examined. No new complaints. No overnight events - Objective Vital Signs & Weight: Vital Signs (12 hours) Temp Pulse Resp BP BP Pulse Ox 06/28/19 11:36 84 111/66 06/28/19 11:35 97.7 F 89 18 114/74 92 L 06/28/19 07:40 98.1 F 84 16 105/71 94 L 06/28/19 04:00 97.6 F 85 18 113/68 95 06/28/19 00:00 98.0 F 91 18 112/70 93 L Weight Admit Weight 170 lb 7 oz Weight 170 lb 7 oz I&O: 06/27/19 06/28/19 06/29/19 06:59 06:59 06:59 Intake Total 500 2700 Output Total 250 800 Balance 250 1900 Result Diagrams: 06/27/19 05:00 06/27/19 04:59 Hospitalist ROS - Review of Systems ENT: denies: ear pain, ear discharge, nose pain, nose discharge, nose congestion , mouth pain, mouth swelling, throat pain, throat swelling, other Respiratory: denies: cough, dry, shortness of breath, hemoptysis, SOB with excertion, pleuritic pain, sputum, wheezing, other Cardiovascular: denies: chest pain, palpitations, orthopnea, paroxysmal noc. dyspnea, edema, light headedness, other Gastrointestinal: denies: nausea, vomiting, abdominal pain, diarrhea, constipation, melena, hematochezia, other Genitourinary: denies: dysuria, frequency, incontinence, hematuria, retention, other Musculoskeletal: denies: neck pain, shoulder pain, arm pain, back pain, hand pain, leg pain, foot pain, other - Medication Medications: Active Medications Generic Name Dose Route Start Last Admin Trade Name Freq PRN Reason Stop Dose Admin Hydrocodone Bitart/Acetaminophen 1 tab 06/26/19 20:33 06/28/19 09:18 [place] 5/325 PO 1 tab Q4H PRN Administration Moderate Pain (4-6) Aspirin 81 mg 06/26/19 21:00 06/28/19 09:21 Ecotrin PO 81 mg BID CARMELO Administration Cyanocobalamin 1,000 mcg 06/28/19 09:00 06/28/19 09:21 Vitamin B-12 IM 1,000 mcg DAILY CARMELO Administration Enoxaparin Sodium 40 mg 06/27/19 09:00 06/28/19 09:22 Lovenox SC 40 mg 0900 CARMELO Administration Famotidine 20 mg 06/27/19 09:00 06/28/19 09:20 Pepcid PO 20 mg BID CARMELO Administration Folic Acid 1 mg 06/28/19 09:00 06/28/19 09:21 Folvite PO 1 mg DAILY CARMELO Administration Sodium Chloride 1,000 mls @ 100 mls/hr 06/26/19 21:00 06/28/19 03:18 Normal Saline 0.9% IV 1,000 mls .Q10H CARMELO Administration Iron/Minerals/Multivitamins 1 tab 06/28/19 09:00 06/28/19 09:20 Theragran M PO 1 tab DAILY CARMELO Administration Levofloxacin 750 mg 06/27/19 23:00 06/27/19 22:32 Levaquin PO 750 mg 2300 CARMELO Administration Morphine Sulfate 2 mg 06/26/19 20:39 06/27/19 22:36 Morphine SLOW IVP 2 mg Q4H PRN Administration Pain Phenytoin Sodium 400 mg 06/26/19 21:00 06/27/19 20:11 Dilantin Er PO 400 mg HS CARMELO Administration - Exam General Appearance: NAD, awake alert Eye: PERRL, anicteric sclera ENT: normocephalic atraumatic, no oropharyngeal lesions Neck: supple, symmetric, no JVD, no thyromegaly Heart: RRR, no murmur, no gallops, no rubs Respiratory: CTAB, no wheezes, no rales, no ronchi Gastrointestinal: soft, non-tender, non-distended, normal bowel sounds Extremities: no cyanosis, no clubbing, no edema Skin: normal turgor, no lesions Neurological: no focal deficits Musculoskeletal: normal tone, normal strength Psychiatric: normal affect, normal behavior Hosp A/P (1) Urinary tract infection Status: Acute (2) Dyslipidemia Code(s): E78.5 - HYPERLIPIDEMIA, UNSPECIFIED Status: Chronic (3) Fatty liver Code(s): K76.0 - FATTY (CHANGE OF) LIVER, NOT ELSEWHERE CLASSIFIED Status: Chronic (4) Hypertension Code(s): I10 - ESSENTIAL (PRIMARY) HYPERTENSION Status: Chronic Qualifiers: Hypertension type: essential hypertension Qualified Code(s): I10 - Essential (primary) hypertension (5) Hypothyroid Code(s): E03.9 - HYPOTHYROIDISM, UNSPECIFIED Status: Chronic Qualifiers: Hypothyroidism type: unspecified Qualified Code(s): E03.9 - Hypothyroidism , unspecified (6) Seizure Code(s): R56.9 - UNSPECIFIED CONVULSIONS Status: Chronic (7) Vitamin B12 deficiency Code(s): E53.8 - DEFICIENCY OF OTHER SPECIFIED B GROUP VITAMINS Status: Acute - Plan old records reviewed/req, continue antibiotics, PT/OT, 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
[2019-06-28] MEDS: Senokot S 8.6-50 MG TAB PO PRN (22:30)
[2019-06-29] MEDS: traMADol HCl 50 MG TAB PO PRN (01:07)
[2019-06-29] MEDS: Aspirin 81 mg Enteric Coated Tablet PO SCH ×2 (08:42→20:46)
[2019-06-29] MEDS: Multivitamin W/ Minerals 1 TAB PO SCH (08:42)
[2019-06-29] MEDS: Famotidine 20 MG TAB PO SCH ×2 (08:43→20:46)
[2019-06-29] MEDS: Folic Acid 1 MG TAB PO SCH (08:43)
[2019-06-29] MEDS: Amlodipine 5 MG TAB PO SCH (08:43)
[2019-06-29] MEDS: Sodium Chloride 0.9% 1,000 ML IV SCH (08:44)
[2019-06-29] MEDS: Enoxaparin Sodium 40 MG/0.4 ML SYRINGE SC SCH (08:44)
[2019-06-29] MEDS: Cyanocobalamin 1000 MCG/ML VIAL IM SCH (08:45)
--- NOTE | 2019-06-29 11:10 | PDOC.HOSPP ---
- Subjective Encounter Date: 06/29/19 Encounter Time: 08:00 Subjective: Patient seen and examined. No new complaints. No overnight events - Objective Vital Signs & Weight: Vital Signs (12 hours) Temp Pulse Resp BP BP Pulse Ox 06/29/19 08:43 104 H 128/81 06/29/19 07:28 97.9 F 104 H 18 128/81 93 L 06/29/19 06:34 94 12 06/29/19 02:27 83 16 Weight Admit Weight 170 lb 7 oz Weight 170 lb 7 oz I&O: 06/28/19 06/29/19 06/30/19 06:59 06:59 06:59 Intake Total 2700 1800 Output Total 800 1650 Balance 1900 150 Result Diagrams: 06/27/19 05:00 06/27/19 04:59 Hospitalist ROS - Review of Systems ENT: denies: ear pain, ear discharge, nose pain, nose discharge, nose congestion , mouth pain, mouth swelling, throat pain, throat swelling, other Respiratory: denies: cough, dry, shortness of breath, hemoptysis, SOB with excertion, pleuritic pain, sputum, wheezing, other Cardiovascular: denies: chest pain, palpitations, orthopnea, paroxysmal noc. dyspnea, edema, light headedness, other Gastrointestinal: denies: nausea, vomiting, abdominal pain, diarrhea, constipation, melena, hematochezia, other Genitourinary: denies: dysuria, frequency, incontinence, hematuria, retention, other Musculoskeletal: denies: neck pain, shoulder pain, arm pain, back pain, hand pain, leg pain, foot pain, other - Medication Medications: Active Medications Generic Name Dose Route Start Last Admin Trade Name Freq PRN Reason Stop Dose Admin Hydrocodone Bitart/Acetaminophen 1 tab 06/26/19 20:33 06/28/19 20:37 [place] 5/325 PO 1 tab Q4H PRN Administration Moderate Pain (4-6) Albuterol/Ipratropium 3 ml 06/29/19 07:00 06/29/19 06:34 Duoneb NEB 3 ml [id number] CARMELO Administration Amlodipine Besylate 2.5 mg 06/29/19 09:00 06/29/19 08:43 Norvasc PO 2.5 mg DAILY CARMELO Administration Aspirin 81 mg 06/26/19 21:00 06/29/19 08:42 Ecotrin PO 81 mg BID [facility] Administration Cyanocobalamin 1,000 mcg 06/28/19 09:00 06/29/19 08:45 Vitamin B-12 IM 1,000 mcg DAILY [facility] Administration Enoxaparin Sodium 40 mg 06/27/19 09:00 06/29/19 08:44 Lovenox SC 40 mg 0900 [facility] Administration Famotidine 20 mg 06/27/19 09:00 06/29/19 08:43 Pepcid PO 20 mg BID CARMELO Administration Folic Acid 1 mg 06/28/19 09:00 06/29/19 08:43 Folvite PO 1 mg DAILY [facility] Administration Sodium Chloride 1,000 mls @ 100 mls/hr 06/26/19 21:00 06/29/19 08:44 Normal Saline 0.9% IV Not Given .Q10H [facility] Iron/Minerals/Multivitamins 1 tab 06/28/19 09:00 06/29/19 08:42 Theragran M PO 1 tab DAILY [facility] Administration Levofloxacin 750 mg 06/27/19 23:00 06/28/19 22:30 Levaquin PO 750 mg 2300 [facility] Administration Morphine Sulfate 2 mg 06/26/19 20:39 06/27/19 22:36 Morphine SLOW IVP 2 mg Q4H PRN Administration Pain Phenytoin Sodium 400 mg 06/26/19 21:00 06/28/19 20:37 Dilantin Er PO 400 mg HS [facility] Administration Senna/Docusate Sodium 2 tab 06/28/19 07:51 06/28/19 22:30 Senokot S PO 2 tab BIDPRN PRN Administration Constipation Tramadol HCl 50 mg 06/26/19 20:37 06/29/19 01:07 Ultram PO 50 mg Q6H PRN Administration Moderate Pain (4-6) Zolpidem Tartrate 5 mg 06/28/19 07:51 06/28/19 20:38 Ambien PO 5 mg HSPRN PRN Administration Insomnia - Exam General Appearance: NAD, awake alert Eye: PERRL, anicteric sclera ENT: normocephalic atraumatic, no oropharyngeal lesions Neck: supple, symmetric, no JVD, no thyromegaly Heart: RRR, no murmur, no gallops, no rubs Respiratory: CTAB, no wheezes, no rales, no ronchi Gastrointestinal: soft, non-tender, non-distended, normal bowel sounds Extremities: no cyanosis, no clubbing, no edema Skin: normal turgor, no lesions, no rashes Neurological: no focal deficits Musculoskeletal: normal tone, normal strength Psychiatric: normal affect, normal behavior Hosp A/P (1) Urinary tract infection Status: Acute (2) Dyslipidemia Code(s): E78.5 - HYPERLIPIDEMIA, UNSPECIFIED Status: Chronic (3) Fatty liver Code(s): K76.0 - FATTY (CHANGE OF) LIVER, NOT ELSEWHERE CLASSIFIED Status: Chronic (4) Hypertension Code(s): I10 - ESSENTIAL (PRIMARY) HYPERTENSION Status: Chronic Qualifiers: Hypertension type: essential hypertension Qualified Code(s): I10 - Essential (primary) hypertension (5) Hypothyroid Code(s): E03.9 - HYPOTHYROIDISM, UNSPECIFIED Status: Chronic Qualifiers: Hypothyroidism type: unspecified Qualified Code(s): E03.9 - Hypothyroidism , unspecified (6) Seizure Code(s): R56.9 - UNSPECIFIED CONVULSIONS Status: Chronic (7) Vitamin B12 deficiency Code(s): E53.8 - DEFICIENCY OF OTHER SPECIFIED B GROUP VITAMINS Status: Acute - Plan old records reviewed/req, continue antibiotics, PT/OT, 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
[2019-06-30] MEDS: traMADol HCl 50 MG TAB PO PRN (03:32)
[2019-06-30] MEDS: Amlodipine 5 MG TAB PO SCH (09:49)
[2019-06-30] MEDS: Famotidine 20 MG TAB PO SCH ×2 (09:49→20:12)
[2019-06-30] MEDS: Multivitamin W/ Minerals 1 TAB PO SCH (09:49)
[2019-06-30] MEDS: Enoxaparin Sodium 40 MG/0.4 ML SYRINGE SC SCH (09:49)
[2019-06-30] MEDS: Aspirin 81 mg Enteric Coated Tablet PO SCH ×2 (09:49→20:12)
[2019-06-30] MEDS: Folic Acid 1 MG TAB PO SCH (09:49)
[2019-06-30] MEDS: Cyanocobalamin 1000 MCG/ML VIAL IM SCH (09:51)
[2019-06-30] MEDS ORDERED: Fleet Enema 133 ML BOT PR PRN (10:33)
--- NOTE | 2019-06-30 10:33 | PDOC.HOSPP ---
- Subjective Encounter Date: 06/30/19 Encounter Time: 08:40 Subjective: Patient seen and examined. pt has no BM for 4 days, No overnight events - Objective Vital Signs & Weight: Vital Signs (12 hours) Temp Pulse Resp BP Pulse Ox 06/30/19 09:49 98 06/30/19 07:57 98.0 F 98 18 130/58 L 94 L 06/30/19 06:30 86 16 Weight Admit Weight 170 lb 7 oz Weight 170 lb 7 oz I&O: 06/29/19 06/30/19 07/01/19 06:59 06:59 06:59 Intake Total 1800 480 Output Total 1650 800 Balance 150 -320 Result Diagrams: 06/27/19 05:00 06/27/19 04:59 Hospitalist ROS - Review of Systems ENT: denies: ear pain, ear discharge, nose pain, nose discharge, nose congestion , mouth pain, mouth swelling, throat pain, throat swelling, other Respiratory: denies: cough, dry, shortness of breath, hemoptysis, SOB with excertion, pleuritic pain, sputum, wheezing, other Cardiovascular: denies: chest pain, palpitations, orthopnea, paroxysmal noc. dyspnea, edema, light headedness, other Gastrointestinal: reports: constipation. denies: nausea, vomiting, abdominal pain, diarrhea, melena, hematochezia, other Genitourinary: denies: dysuria, frequency, incontinence, hematuria, retention, other Musculoskeletal: denies: neck pain, shoulder pain, arm pain, back pain, hand pain, leg pain, foot pain, other - Medication Medications: Active Medications Generic Name Dose Route Start Last Admin Trade Name Freq PRN Reason Stop Dose Admin Hydrocodone Bitart/Acetaminophen 1 tab 06/26/19 20:33 06/28/19 20:37 [place] 5/325 PO 1 tab Q4H PRN Administration Moderate Pain (4-6) Albuterol/Ipratropium 3 ml 06/29/19 07:00 06/30/19 06:30 Duoneb NEB 3 ml [id number] CARMELO Administration Amlodipine Besylate 2.5 mg 06/29/19 09:00 06/30/19 09:49 Norvasc PO 2.5 mg DAILY CARMELO Administration Aspirin 81 mg 06/26/19 21:00 06/30/19 09:49 Ecotrin PO 81 mg BID CARMELO Administration Cyanocobalamin 1,000 mcg 06/28/19 09:00 06/30/19 09:51 Vitamin B-12 IM Not Given DAILY [facility] Enoxaparin Sodium 40 mg 06/27/19 09:00 06/30/19 09:49 Lovenox SC 40 mg 0900 [facility] Administration Famotidine 20 mg 06/27/19 09:00 06/30/19 09:49 Pepcid PO 20 mg BID [facility] Administration Folic Acid 1 mg 06/28/19 09:00 06/30/19 09:49 Folvite PO 1 mg DAILY [facility] Administration Iron/Minerals/Multivitamins 1 tab 06/28/19 09:00 06/30/19 09:49 Theragran M PO 1 tab DAILY [facility] Administration Levofloxacin 750 mg 06/27/19 23:00 06/29/19 20:46 Levaquin PO 750 mg 2300 [facility] Administration Morphine Sulfate 2 mg 06/26/19 20:39 06/27/19 22:36 Morphine SLOW IVP 2 mg Q4H PRN Administration Pain Phenytoin Sodium 400 mg 06/26/19 21:00 06/29/19 20:46 Dilantin Er PO 400 mg HS [facility] Administration Senna/Docusate Sodium 2 tab 06/28/19 07:51 06/28/19 22:30 Senokot S PO 2 tab BIDPRN PRN Administration Constipation Tramadol HCl 50 mg 06/26/19 20:37 06/30/19 03:32 Ultram PO 50 mg Q6H PRN Administration Moderate Pain (4-6) Zolpidem Tartrate 5 mg 06/28/19 07:51 06/28/19 20:38 Ambien PO 5 mg HSPRN PRN Administration Insomnia - Exam General Appearance: NAD, awake alert Eye: PERRL, anicteric sclera ENT: normocephalic atraumatic, no oropharyngeal lesions Neck: supple, symmetric, no JVD Heart: RRR, no murmur, no gallops Respiratory: CTAB, no wheezes, no rales Gastrointestinal: soft, non-tender, non-distended Extremities: no cyanosis, no clubbing Skin: normal turgor, no lesions Neurological: no focal deficits Musculoskeletal: normal tone, normal strength Psychiatric: normal affect, normal behavior Hosp A/P (1) Urinary tract infection Status: Acute (2) Dyslipidemia Code(s): E78.5 - HYPERLIPIDEMIA, UNSPECIFIED Status: Chronic (3) Fatty liver Code(s): K76.0 - FATTY (CHANGE OF) LIVER, NOT ELSEWHERE CLASSIFIED Status: Chronic (4) Hypertension Code(s): I10 - ESSENTIAL (PRIMARY) HYPERTENSION Status: Chronic Qualifiers: Hypertension type: essential hypertension Qualified Code(s): I10 - Essential (primary) hypertension (5) Hypothyroid Code(s): E03.9 - HYPOTHYROIDISM, UNSPECIFIED Status: Chronic Qualifiers: Hypothyroidism type: unspecified Qualified Code(s): E03.9 - Hypothyroidism , unspecified (6) Seizure Code(s): R56.9 - UNSPECIFIED CONVULSIONS Status: Chronic (7) Vitamin B12 deficiency Code(s): E53.8 - DEFICIENCY OF OTHER SPECIFIED B GROUP VITAMINS Status: Acute - Plan old records reviewed/req, continue antibiotics, PT/OT, 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
[2019-06-30] MEDS ORDERED: Polyethylene Glycol 3350 17 GM Packet PO SCH (10:45)
[2019-07-01] MEDS: traMADol HCl 50 MG TAB PO PRN (06:14)
[2019-07-01] MEDS: Aspirin 81 mg Enteric Coated Tablet PO SCH ×2 (08:03→21:26)
[2019-07-01] MEDS: Multivitamin W/ Minerals 1 TAB PO SCH (08:03)
[2019-07-01] MEDS: Amlodipine 5 MG TAB PO SCH (08:03)
[2019-07-01] MEDS: Famotidine 20 MG TAB PO SCH ×2 (08:07→21:26)
[2019-07-01] MEDS: Folic Acid 1 MG TAB PO SCH (08:07)
[2019-07-01] MEDS: Enoxaparin Sodium 40 MG/0.4 ML SYRINGE SC SCH (08:07)
[2019-07-01] MEDS: Polyethylene Glycol 3350 17 GM Packet PO SCH (08:07)
[2019-07-01] MEDS: Cyanocobalamin 1000 MCG/ML VIAL IM SCH (08:08)
--- NOTE | 2019-07-01 11:40 | PDOC.HOSPP ---
- Subjective Encounter Date: 07/01/19 Encounter Time: 08:40 Subjective: Patient seen and examined. No new complaints. No overnight events - Objective Vital Signs & Weight: Vital Signs (12 hours) Temp Pulse Resp BP BP Pulse Ox 07/01/19 08:03 109 H 18 150/79 H 94 L 07/01/19 08:00 94 L 07/01/19 07:12 98 F 109 H 19 150/79 H 94 L 07/01/19 00:30 103 H 16 06/30/19 23:50 98.0 F 102 H 19 129/75 93 L Weight Admit Weight 170 lb 7 oz Weight 170 lb 7 oz I&O: 06/30/19 07/01/19 07/02/19 06:59 06:59 06:59 Intake Total 480 1130 Output Total 800 Balance -320 1130 Result Diagrams: 06/27/19 05:00 06/27/19 04:59 Hospitalist ROS - Review of Systems ENT: denies: ear pain, ear discharge, nose pain, nose discharge, nose congestion , mouth pain, mouth swelling, throat pain, throat swelling, other Respiratory: denies: cough, dry, shortness of breath, hemoptysis, SOB with excertion, pleuritic pain, sputum, wheezing, other Cardiovascular: denies: chest pain, palpitations, orthopnea, paroxysmal noc. dyspnea, edema, light headedness, other Gastrointestinal: denies: nausea, vomiting, abdominal pain, diarrhea, constipation, melena, hematochezia, other Genitourinary: denies: dysuria, frequency, incontinence, hematuria, retention, other Musculoskeletal: denies: neck pain, shoulder pain, arm pain, back pain, hand pain, leg pain, foot pain, other - Medication Medications: Active Medications Generic Name Dose Route Start Last Admin Trade Name Freq PRN Reason Stop Dose Admin Hydrocodone Bitart/Acetaminophen 1 tab 06/26/19 20:33 06/28/19 20:37 [place] 5/325 PO 1 tab Q4H PRN Administration Moderate Pain (4-6) Albuterol/Ipratropium 3 ml 06/29/19 07:00 07/01/19 08:03 Duoneb NEB 3 ml [id number] CARMELO Administration Amlodipine Besylate 2.5 mg 06/29/19 09:00 07/01/19 08:03 Norvasc PO 2.5 mg DAILY CARM[facility]O Administration Aspirin 81 mg 06/26/19 21:00 07/01/19 08:03 Ecotrin PO 81 mg BID CARM[facility]O Administration Cyanocobalamin 1,000 mcg 06/28/19 09:00 07/01/19 08:08 Vitamin B-12 IM 1,000 mcg DAILY CARMELO Administration Enoxaparin Sodium 40 mg 06/27/19 09:00 07/01/19 08:07 Lovenox SC 40 mg 0900 CARMELO Administration Famotidine 20 mg 06/27/19 09:00 07/01/19 08:07 Pepcid PO 20 mg BID CARMELO Administration Folic Acid 1 mg 06/28/19 09:00 07/01/19 08:07 Folvite PO 1 mg DAILY CARM[facility]O Administration Iron/Minerals/Multivitamins 1 tab 06/28/19 09:00 07/01/19 08:03 Theragran M PO 1 tab DAILY [facility] Administration Levofloxacin 750 mg 06/27/19 23:00 06/30/19 20:15 Levaquin PO 750 mg 2300 CARMELO Administration Morphine Sulfate 2 mg 06/26/19 20:39 06/27/19 22:36 Morphine SLOW IVP 2 mg Q4H PRN Administration Pain Phenytoin Sodium 400 mg 06/26/19 21:00 06/30/19 20:12 Dilantin Er PO 400 mg HS CARMELO Administration Polyethylene Glycol 17 gm 07/01/19 09:00 07/01/19 08:07 Miralax PO 17 gm DAILY CARMELO Administration Senna/Docusate Sodium 2 tab 06/28/19 07:51 06/28/19 22:30 Senokot S PO 2 tab BIDPRN PRN Administration Constipation Tramadol HCl 50 mg 06/26/19 20:37 07/01/19 06:14 Ultram PO 50 mg Q6H PRN Administration Moderate Pain (4-6) Zolpidem Tartrate 5 mg 06/28/19 07:51 06/28/19 20:38 Ambien PO 5 mg HSPRN PRN Administration Insomnia - Exam General Appearance: NAD, awake alert Eye: PERRL, anicteric sclera ENT: normocephalic atraumatic, no oropharyngeal lesions Neck: supple, symmetric, no JVD Heart: RRR, no murmur, no gallops, no rubs Respiratory: CTAB, no wheezes, no rales Gastrointestinal: soft, non-tender, non-distended Extremities: no cyanosis, no clubbing Skin: normal turgor, no lesions Neurological: no focal deficits Musculoskeletal: normal tone, normal strength Psychiatric: normal affect, normal behavior Hosp A/P (1) Urinary tract infection Status: Acute (2) Dyslipidemia Code(s): E78.5 - HYPERLIPIDEMIA, UNSPECIFIED Status: Chronic (3) Fatty liver Code(s): K76.0 - FATTY (CHANGE OF) LIVER, NOT ELSEWHERE CLASSIFIED Status: Chronic (4) Hypertension Code(s): I10 - ESSENTIAL (PRIMARY) HYPERTENSION Status: Chronic Qualifiers: Hypertension type: essential hypertension Qualified Code(s): I10 - Essential (primary) hypertension (5) Hypothyroid Code(s): E03.9 - HYPOTHYROIDISM, UNSPECIFIED Status: Chronic Qualifiers: Hypothyroidism type: unspecified Qualified Code(s): E03.9 - Hypothyroidism , unspecified (6) Seizure Code(s): R56.9 - UNSPECIFIED CONVULSIONS Status: Chronic (7) Vitamin B12 deficiency Code(s): E53.8 - DEFICIENCY OF OTHER SPECIFIED B GROUP VITAMINS Status: Acute - Plan old records reviewed/req 06/28/19 medication reviewed and continue to provide supportive care, continue levaquin, follow urine cultue, await placement, start vitamin b12 IM daily, add folic acid 06/29/19- dc ivf, await placement, medication reviewed as above, symptomatic treatment 06/30/19- treat constipation today, await placement, medication reviewed and continue to provide symptomatic treatment 07/01/19- treat constipation, await placement, possible DC soon
[2019-07-01] MEDS: Senokot S 8.6-50 MG TAB PO PRN (21:40)
[2019-07-02] MEDS: Polyethylene Glycol 3350 17 GM Packet PO SCH (08:01)
[2019-07-02] MEDS: Amlodipine 5 MG TAB PO SCH (08:01)
[2019-07-02] MEDS: Folic Acid 1 MG TAB PO SCH (08:01)
[2019-07-02] MEDS: Aspirin 81 mg Enteric Coated Tablet PO SCH ×2 (08:01→20:28)
[2019-07-02] MEDS: Multivitamin W/ Minerals 1 TAB PO SCH (08:01)
[2019-07-02] MEDS: Famotidine 20 MG TAB PO SCH ×2 (08:02→20:28)
[2019-07-02] MEDS: Enoxaparin Sodium 40 MG/0.4 ML SYRINGE SC SCH (08:02)
[2019-07-02] MEDS: Cyanocobalamin 1000 MCG/ML VIAL IM SCH (08:03)
--- NOTE | 2019-07-02 11:03 | PDOC.HOSPP ---
- Subjective Encounter Date: 07/02/19 Encounter Time: 08:15 Subjective: Patient seen and examined. No new complaints. No overnight events - Objective Vital Signs & Weight: Vital Signs (12 hours) Temp Pulse Resp BP BP Pulse Ox 07/02/19 08:19 102 H 18 94 L 07/02/19 08:01 103 H 130/73 07/02/19 08:00 95 07/02/19 07:58 95 07/02/19 07:28 97.6 F 103 H 17 130/73 91 L 07/02/19 04:00 97.6 F 103 H 18 106/70 93 L 07/02/19 00:00 98.0 F 110 H 18 115/75 92 L Weight Admit Weight 170 lb 7 oz Weight 170 lb 7 oz I&O: 07/01/19 07/02/19 07/03/19 06:59 06:59 06:59 Intake Total 1130 900 Output Total 300 Balance 1130 600 Result Diagrams: 06/27/19 05:00 06/27/19 04:59 Hospitalist ROS - Review of Systems ENT: denies: ear pain, ear discharge, nose pain, nose discharge, nose congestion , mouth pain, mouth swelling, throat pain, throat swelling, other Respiratory: denies: cough, dry, shortness of breath, hemoptysis, SOB with excertion, pleuritic pain, sputum, wheezing, other Cardiovascular: denies: chest pain, palpitations, orthopnea, paroxysmal noc. dyspnea, edema, light headedness, other Gastrointestinal: denies: nausea, vomiting, abdominal pain, diarrhea, constipation, melena, hematochezia, other Genitourinary: denies: dysuria, frequency, incontinence, hematuria, retention, other Musculoskeletal: denies: neck pain, shoulder pain, arm pain, back pain, hand pain, leg pain, foot pain, other - Medication Medications: Active Medications Generic Name Dose Route Start Last Admin Trade Name Freq PRN Reason Stop Dose Admin Hydrocodone Bitart/Acetaminophen 1 tab 06/26/19 20:33 06/28/19 20:37 [place] 5/325 PO 1 tab Q4H PRN Administration Moderate Pain (4-6) Amlodipine Besylate 2.5 mg 06/29/19 09:00 07/02/19 08:01 Norvasc PO 2.5 mg DAILY CARMELO Administration Aspirin 81 mg 06/26/19 21:00 07/02/19 08:01 Ecotrin PO 81 mg BID CARMELO Administration Bisacodyl 10 mg 06/28/19 07:51 07/01/19 16:15 Dulcolax [place] 10 mg DAILYPRN PRN Administration Constipation Cyanocobalamin 1,000 mcg 06/28/19 09:00 07/02/19 08:03 Vitamin B-12 IM 1,000 mcg DAILY CARMELO Administration Enoxaparin Sodium 40 mg 06/27/19 09:00 07/02/19 08:02 Lovenox SC 40 mg 0900 CARMELO Administration Famotidine 20 mg 06/27/19 09:00 07/02/19 08:02 Pepcid PO 20 mg BID CARMELO Administration Folic Acid 1 mg 06/28/19 09:00 07/02/19 08:01 Folvite PO 1 mg DAILY CARMELO Administration Iron/Minerals/Multivitamins 1 tab 06/28/19 09:00 07/02/19 08:01 Theragran M PO 1 tab DAILY CARMELO Administration Levofloxacin 750 mg 06/27/19 23:00 07/01/19 21:27 Levaquin PO 750 mg 2300 CARMELO Administration Morphine Sulfate 2 mg 06/26/19 20:39 06/27/19 22:36 Morphine SLOW IVP 2 mg Q4H PRN Administration Pain Phenytoin Sodium 400 mg 06/26/19 21:00 07/01/19 21:26 Dilantin Er PO 400 mg HS CARMELO Administration Polyethylene Glycol 17 gm 07/01/19 09:00 07/02/19 08:01 Miralax PO 17 gm DAILY CARMELO Administration Senna/Docusate Sodium 2 tab 06/28/19 07:51 07/01/19 21:40 Senokot S PO 2 tab BIDPRN PRN Administration Constipation Tramadol HCl 50 mg 06/26/19 20:37 07/01/19 06:14 Ultram PO 50 mg Q6H PRN Administration Moderate Pain (4-6) Zolpidem Tartrate 5 mg 06/28/19 07:51 06/28/19 20:38 Ambien PO 5 mg HSPRN PRN Administration Insomnia - Exam General Appearance: NAD, awake alert Eye: PERRL, anicteric sclera ENT: normocephalic atraumatic, no oropharyngeal lesions Neck: supple, symmetric, no JVD Heart: RRR, no murmur, no gallops Respiratory: CTAB, no wheezes, no rales Gastrointestinal: soft, non-tender, non-distended, normal bowel sounds Extremities: no cyanosis, no clubbing, no edema Skin: normal turgor, no lesions Neurological: no focal deficits Musculoskeletal: normal tone, normal strength Psychiatric: normal affect, normal behavior Hosp A/P (1) Urinary tract infection Status: Acute (2) Dyslipidemia Code(s): E78.5 - HYPERLIPIDEMIA, UNSPECIFIED Status: Chronic (3) Fatty liver Code(s): K76.0 - FATTY (CHANGE OF) LIVER, NOT ELSEWHERE CLASSIFIED Status: Chronic (4) Hypertension Code(s): I10 - ESSENTIAL (PRIMARY) HYPERTENSION Status: Chronic Qualifiers: Hypertension type: essential hypertension Qualified Code(s): I10 - Essential (primary) hypertension (5) Hypothyroid Code(s): E03.9 - HYPOTHYROIDISM, UNSPECIFIED Status: Chronic Qualifiers: Hypothyroidism type: unspecified Qualified Code(s): E03.9 - Hypothyroidism , unspecified (6) Seizure Code(s): R56.9 - UNSPECIFIED CONVULSIONS Status: Chronic (7) Vitamin B12 deficiency Code(s): E53.8 - DEFICIENCY OF OTHER SPECIFIED B GROUP VITAMINS Status: Acute - Plan old records reviewed/req, plan discussed w/ family, PT/OT, social media senior associate 06/28/19 medication reviewed and continue to provide supportive care, continue levaquin, follow urine cultue, await placement, start vitamin b12 IM daily, add folic acid 06/29/19- dc ivf, await placement, medication reviewed as above, symptomatic treatment 06/30/19- treat constipation today, await placement, medication reviewed and continue to provide symptomatic treatment 07/01/19- treat constipation, await placement, possible DC soon 07/02/19- updated plan to daughter bedside, treat constipation, due to holidays , her dc to [facility] may be delayed, but if arrangement done and apporved with insurance, i will dc her anytime. medication reviewed and continue to provide symptomatic treatment
[2019-07-02] MEDS: Metoclopramide HCl 10 MG/2 ML VIAL IVP PRN (19:11)
[2019-07-02] MEDS ORDERED: Ondansetron PF 4 MG/2 ML Vial IVP SCH (21:15)
--- NOTE | 2019-07-02 21:49 | RAD ---
EXAM: XR Abdomen 1 View/KUB PROVIDED CLINICAL HISTORY: Nausea and vomiting. Abdominal firmness. COMPARISON: None FINDINGS: There are distended and dilated gas-filled loops of small bowel seen within the central abdomen sugge sting a small bowel obstruction. Small amount of gas is seen in the region of the rectum. There is mild gaseous distention of the stomach. Surgical clips overlie the right upper quadrant. Postsurgical changes are seen involving each hip. Vertebroplasty changes are seen involving lumbar vertebral bodies. There is osteopenia with degenerative changes in the spine. IMPRESSION: Evidence for ileus versus small bowel obstruction. CT scan abdomen and pelvis may be helpful for furt her evaluation.
[2019-07-03] MEDS: Metoclopramide HCl 10 MG/2 ML VIAL IVP PRN ×2 (01:43→08:17)
--- NOTE | 2019-07-03 02:09 | PDOC.EVN ---
Event Note - Event Note Event Note: Discussed patient with JODI Garcia. Patient had abdominal distention and vomiting. Had KUB consistent with ileus v. SBO. Did not initially place NGT as she was not having nausea at the time. CT ordered for the morning. She has now had additional episodes of vomiting brown emesis. Will order NGT to [facility].
[2019-07-03] MEDS: Amlodipine 5 MG TAB PO SCH (08:19)
[2019-07-03] MEDS: Multivitamin W/ Minerals 1 TAB PO SCH (08:19)
[2019-07-03] MEDS: Polyethylene Glycol 3350 17 GM Packet PO SCH (08:19)
[2019-07-03] MEDS: Famotidine 20 MG TAB PO SCH (08:20)
[2019-07-03] MEDS: Folic Acid 1 MG TAB PO SCH (08:20)
[2019-07-03] MEDS: Aspirin 81 mg Enteric Coated Tablet PO SCH (08:20)
--- NOTE | 2019-07-03 10:15 | CT ---
CT ABDOMEN AND PELVIS PERFORMED WITH CONTRAST ENHANCEMENT: Date: 07/03/19 HISTORY: Abdominal distention and vomiting. FINDINGS: Lung bases show small bilateral pleural effusions and bibasilar atelectatic lung changes. The liver and spleen are normal in appearance. The pancreas is atrophic. The gallbladder has been rem alcides. Right and left adrenal glands, and right and left kidneys are normal in size. There is no significant periaortic or mesenteric adenopathy. There is a distended fluid-filled stomach with reflux into the esophagus. There is evidence for a proximal small bowel obstruction with more dilated proximal small bowel loops. There does appear to be a transition zone in the mid abdomen with more normal caliber di stal ileum. No signs of pneumatosis. Scan artifact related to a right hip prosthesis degrades detail in the pelvis, but I see no pelvic ly mphadenopathy or mass. The appendix is normal. IMPRESSION: 1. Findings compatible with a partial small bowel obstruction. 2. Post cholecystectomy change. 3. Small bilateral pleural effusions with some moderate bibasilar atelectatic lung changes seen. POS: OFF
[2019-07-03] MEDS ORDERED: Ondansetron PF 4 MG/2 ML Vial IVP PRN (11:37)
[2019-07-03] MEDS ORDERED: D5 0.9% NS w/ 20 mEq KCl 1,000 ML IV SCH (11:45)
--- NOTE | 2019-07-03 12:10 | PDOC.HOSPP ---
- Subjective Encounter Date: 07/03/19 Encounter Time: 12:08 Subjective: Patient reports not having had any BMs in 3-4 days. Hasn't passed gas in the past 2-3 days. Reports nausea and vomiting. No fever, chills, CP, SOB. Reports feeling weak. States her back pain is better. - Objective Vital Signs & Weight: Vital Signs (12 hours) Temp Pulse Resp BP Pulse Ox 07/03/19 11:40 97.8 F 118 H 17 125/82 91 L 07/03/19 08:19 118 H 07/03/19 07:58 93 L 07/03/19 07:29 98.3 F 118 H 17 104/67 91 L 07/03/19 04:00 98.1 F 118 H 20 135/66 96 Weight Admit Weight 170 lb 7 oz Weight 170 lb 7 oz I&O: 07/02/19 07/03/19 07/04/19 06:59 06:59 06:59 Intake Total 900 1200 Output Total 300 175 Balance 600 1025 Result Diagrams: 06/27/19 05:00 06/27/19 04:59 Radiology Reviewed by me: Yes (CT abd/pelvis with Partial SBO) Hospitalist ROS - Medication Medications: Active Medications Generic Name Dose Route Start Last Admin Trade Name Freq PRN Reason Stop Dose Admin Hydrocodone Bitart/Acetaminophen 1 tab 06/26/19 20:33 06/28/19 20:37 [place] 5/325 PO 1 tab Q4H PRN Administration Moderate Pain (4-6) Aspirin 81 mg 06/26/19 21:00 07/03/19 08:20 Ecotrin PO Not Given BID [facility] Bisacodyl 10 mg 06/28/19 07:51 07/01/19 16:15 Dulcolax [place] 10 mg DAILYPRN PRN Administration Constipation Cyanocobalamin 1,000 mcg 06/28/19 09:00 07/02/19 08:03 Vitamin B-12 IM 1,000 mcg DAILY CARMELO Administration Enoxaparin Sodium 40 mg 06/27/19 09:00 07/02/19 08:02 Lovenox SC 40 mg 0900 CARMELO Administration Folic Acid 1 mg 06/28/19 09:00 07/03/19 08:20 Folvite PO Not Given DAILY [facility] Guaifenesin 200 mg 06/28/19 07:51 07/02/19 20:38 Robitussin Sf PO 200 mg Q4H PRN Administration Cough Iron/Minerals/Multivitamins 1 tab 06/28/19 09:00 07/03/19 08:19 Theragran M PO Not Given DAILY CARMELO Morphine Sulfate 2 mg 06/26/19 20:39 06/27/19 22:36 Morphine SLOW IVP 2 mg Q4H PRN Administration Pain Phenytoin Sodium 400 mg 06/26/19 21:00 07/02/19 20:29 Dilantin Er PO 400 mg HS CARMELO Administration Senna/Docusate Sodium 2 tab 06/28/19 07:51 07/01/19 21:40 Senokot S PO 2 tab BIDPRN PRN Administration Constipation Tramadol HCl 50 mg 06/26/19 20:37 07/01/19 06:14 Ultram PO 50 mg Q6H PRN Administration Moderate Pain (4-6) - Exam General Appearance: awake alert, ill appearing Neck: supple, symmetric, no JVD, no thyromegaly, no lymphadenopathy Heart: no murmur, no gallops, no rubs, normal peripheral pulses Heart - other findings: tachycardia Respiratory: CTAB, no wheezes, no rales, no ronchi, normal chest expansion, no tachypnea, normal percussion Gastrointestinal: soft, no guarding, no rigidity, tender to palpation (diffusely ), distended, diminished bowl sounds Extremities: no cyanosis, no clubbing Psychiatric: normal affect, normal behavior, A&O x 3 Hosp A/P (1) SBO (small bowel obstruction) Code(s): K56.609 - UNSP INTESTNL OBST, UNSP TO PARTIAL VERSUS COMPLETE OBST Status: Acute Plan: CT with partial SBO Pt. already NPO Will place NG tube to low intermittent suction Surgery consult IV Protonix IV fluids OOB to chair TID with assist Will follow surgery recs High risk due to need for NG suction and possible need for surgery if SBO doesn' t resolve (2) Vitamin B12 deficiency Code(s): E53.8 - DEFICIENCY OF OTHER SPECIFIED B GROUP VITAMINS Status: Acute Plan: Continue IM B12 supplements Eventual PO once SBO resolved (3) Urinary tract infection Status: Resolved Qualifiers: Urinary tract infection type: acute cystitis Hematuria presence: without hematuria Qualified Code(s): N30.00 - Acute cystitis without hematuria Plan: S/p 7 days of levaquin DC abx (4) Dyslipidemia Code(s): E78.5 - HYPERLIPIDEMIA, UNSPECIFIED Status: Chronic Plan: Hold statin due to NPO status (5) Hypertension Code(s): I10 - ESSENTIAL (PRIMARY) HYPERTENSION Status: Chronic Qualifiers: Hypertension type: essential hypertension Qualified Code(s): I10 - Essential (primary) hypertension Plan: Borderline low BP and tachycardia Hold meds and start IV fluids (6) Hypothyroid Code(s): E03.9 - HYPOTHYROIDISM, UNSPECIFIED Status: Chronic Qualifiers: Hypothyroidism type: acquired Qualified Code(s): E03.9 - Hypothyroidism, unspecified Plan: Check TSH Will start IV synthroid as patient is NPO due to SBO - Plan DVT proph w/lovenox, GI proph
[2019-07-03 12:28] LABS: ALT (SGPT) 29 U/L (8-55); AST (SGOT) 31 U/L (5-34); Albumin 3.6 g/dL (3.4-4.8); Alkaline Phosphatase 191 U/L (40-110); Anion Gap 14 mmol/L (10-20); BUN (Urea Nitrogen) 25 mg/dL (9.8-20.1); Bilirubin, Total 0.4 mg/dL (0.2-1.2); Calc. Creatinine Clearance 74 mL/min (70-130); Calcium 9.9 mg/dL (7.8-10.44); Carbon Dioxide 28 mmol/L (23-31); Chloride 97 mmol/L (98-107); Estimated GFR-MDRD 71; Globulin 3.3 g/dL (2.4-3.5); Glucose 106 mg/dL (83-110); Potassium 4.4 mmol/L (3.5-5.1); Protein, Total 6.9 g/dL (6.0-8.3); Sodium 135 mmol/L (136-145)
[2019-07-03 12:44] LABS: Band 1 % (5-11); Hemoglobin 15.9 g/dL (12.0-16.0); Lymphocytes 22 % (21-51); MDiff Complete? YES; Mean Corpuscular HGB CONC 33.7 g/dL (32.0-36.0); Mean Corpuscular Hemoglobin 33.5 pg (27.0-31.0); Mean Corpuscular Volume 99.2 fL (78.0-98.0); Mean Platelet Volume 7.2 fL (7.4-10.4); Monocytes 2 % (0-10); Neutrophil 75 % (42-75); Platelet Count 332 thou/uL (130-400); RBC Distribution Width 11.6 % (11.5-14.5); Red Blood Cell (RBC) Count 4.75 mill/uL (4.20-5.40); White Blood Cell (WBC) Count 11.6 thou/uL (4.8-10.8)
[2019-07-03] MEDS ORDERED: Chloraseptic Spray 180 ml Bottle PO PRN (13:09)
[2019-07-03] MEDS ORDERED: Sodium Chloride 0.9% 1,000 ML IV SCH (13:15)
--- NOTE | 2019-07-03 13:26 | CON ---
DATE OF CONSULTATION: CHIEF COMPLAINT: Nausea, vomiting, and abdominal pain. HISTORY OF PRESENT ILLNESS: The patient is a 74-year-old female, who was admitted on the June 26 after a fall. She had some rhabdomyolysis and urinary tract infection. She has been treated and was supposed to go to the aline. But, she started developing some vomiting and abdominal distention. A CT scan was performed today showing a partial small bowel obstruction. She had a small bowel movement this morning. Last flatus was a day and half ago. She had a colonoscopy two years ago by Dr. Donovan. PAST MEDICAL HISTORY: Significant for morbid obesity, hypertension, hypothyroidism, history of seizure disorder, chronic low back pain, hyperlipidemia, and irritable bowel syndrome. PAST SURGICAL HISTORY: She has a right hip surgery and tonsillectomy. MEDICATIONS: She has a long list. ALLERGIES: TO PENICILLIN AND SULFA. FAMILY HISTORY: Noncontributory. PHYSICAL EXAMINATION: VITAL SIGNS: Temperature 97.8, pulse 118, and blood pressure 125/82. GENERAL: She is a little lethargic, but awake. She had an NG tube in her right nares very little is coming out. ABDOMEN: Obese, soft, and nontender. I do not see any surgical scars. LABORATORY DATA: Her white count is 11.6, H and H 15 and 47, and platelet count of 332. Electrolytes, her BUN is elevated at [address] scan shows a dilated proximal small bowel with a transition zone in the mid abdomen. ASSESSMENT: Partial small bowel obstruction. PLAN: IV fluids, IV hydration, NG suction, and serial KUB. Job ID: [id number]
[2019-07-03] MEDS: Enoxaparin Sodium 40 MG/0.4 ML SYRINGE SC SCH (13:42)
[2019-07-03] MEDS: Cyanocobalamin 1000 MCG/ML VIAL IM SCH (13:43)
[2019-07-03] MEDS: Lidocaine 5% Patch TD SCH (13:51)
--- NOTE | 2019-07-03 13:57 | RAD ---
KUB: HISTORY: Evaluation of NG tube placement. COMPARISON: Prior day's study. FINDINGS: Small bowel distention is stable. An NG tube has been placed, which is in the fundus of the stomach. No other change. IMPRESSION: Nasogastric tube coiled in the fundus of the stomach. POS: OFF
[2019-07-03] MEDS: D5 1/2 NS w/20 mEq KCL 1,000 ML IV SCH ×2 (14:46→21:51)
[2019-07-03] MEDS ORDERED: Fosphenytoin Sodium 400 MG in Sodium Chloride 0.9% 50 ML IVPB SCH (21:00)
[2019-07-03] MEDS ORDERED: Lidocaine Patch Removal 1 EACH TOP SCH (23:59)
[2019-07-04] MEDS: D5 1/2 NS w/20 mEq KCL 1,000 ML IV SCH (02:06)
[2019-07-04] MEDS ORDERED: Levothyroxine 100 MCG SDV IVP SCH (06:00)
[2019-07-04 06:34] LABS: #Eosinphils 0.5 thou/uL (0.0-0.7); #Lymphocytes 1.6 thou/uL (1.20-3.40); #Monocytes 0.9 thou/uL (0.11-0.59); #Neutrophils 5.6 thou/uL (1.40-6.50); %Basophils 0.3 % (0.0-1.0); %Eosinophils 5.7 % (0.0-10.0); %Lymphocytes 18.7 % (21.0-51.0); %Monocytes 10.6 % (0.0-10.0); %Neutrophils 64.7 % (42.0-75.0); Hemoglobin 12.9 g/dL (12.0-16.0); Mean Corpuscular HGB CONC 33.3 g/dL (32.0-36.0); Mean Corpuscular Hemoglobin 32.6 pg (27.0-31.0); Mean Corpuscular Volume 97.8 fL (78.0-98.0); Mean Platelet Volume 6.3 fL (7.4-10.4); Platelet Count 302 thou/uL (130-400); RBC Distribution Width 11.7 % (11.5-14.5); Red Blood Cell (RBC) Count 3.94 mill/uL (4.20-5.40); White Blood Cell (WBC) Count 8.6 thou/uL (4.8-10.8)
[2019-07-04 06:57] LABS: ALT (SGPT) 23 U/L (8-55); AST (SGOT) 30 U/L (5-34); Alkaline Phosphatase 157 U/L (40-110); Anion Gap 9 mmol/L (10-20); BUN (Urea Nitrogen) 16 mg/dL (9.8-20.1); Bilirubin, Total 0.2 mg/dL (0.2-1.2); Calc. Creatinine Clearance 89 mL/min (70-130); Calcium 8.7 mg/dL (7.8-10.44); Carbon Dioxide 26 mmol/L (23-31); Chloride 106 mmol/L (98-107); Estimated GFR-MDRD 87; Globulin 2.7 g/dL (2.4-3.5); Glucose 111 mg/dL (83-110); Potassium 4.2 mmol/L (3.5-5.1); Protein, Total 5.7 g/dL (6.0-8.3); Sodium 137 mmol/L (136-145)
--- NOTE | 2019-07-04 08:20 | RAD ---
KUB: DATE: 07/04/2019. PROVIDED CLINICAL HISTORY: Small bowel obstruction. FINDINGS: Comparison 07/03/2019. Enteric catheter is again seen in similar position. Visualized lung bases re main clear. The supine nature of the examination is not sensitive for the detection of pneumoperiton eum, without evidence for such. The abdominal bowel gas pattern is nonspecific. Cholecystectomy cli ps are seen in the right upper quadrant. IMPRESSION: Nonspecific bowel gas pattern. POS: OFF
[2019-07-04] MEDS ORDERED: Pantoprazole 40 MG VIAL IVP SCH (09:00)
--- NOTE | 2019-07-04 09:21 | PRG ---
DATE OF SERVICE: 07/04/2019 SUBJECTIVE: The patient is feeling much better. She denies abdominal pain. She denies vomiting nor nausea. She is hungry, wants to eat. She is passing flatus. OBJECTIVE: VITAL SIGNS: Her temperature is 98.3, pulse 93, blood pressure 111/71. GENERAL: She is awake, alert, and in no apparent distress. She had minimal out through her NG tube. ABDOMEN: Soft, nondistended, and nontender. LABORATORY DATA: KUB shows no evidence of obstruction. PLAN: Discontinue NG tube. Begin clear liquids. Job ID: [id number]
[2019-07-04] MEDS: Dextrose 5 % And 0.9 % NaCl 1,000 ML IV SCH ×2 (09:45→17:51)
[2019-07-04] MEDS: Cyanocobalamin 1000 MCG/ML VIAL IM SCH (09:50)
[2019-07-04] MEDS: Enoxaparin Sodium 40 MG/0.4 ML SYRINGE SC SCH (09:56)
[2019-07-04] MEDS: Lidocaine 5% Patch TD SCH (11:16)
[2019-07-04] MEDS: Folic Acid 1 MG TAB PO SCH (11:16)
[2019-07-04] MEDS: Aspirin 81 mg Enteric Coated Tablet PO SCH (11:16)
--- NOTE | 2019-07-04 13:04 | PDOC.HOSPP ---
- Subjective Encounter Date: 07/04/19 Encounter Time: 13:03 Subjective: Patient was seen by surgery yesterday and this AM. KUB this morning without SBO. Hence, her NG was discontinued by surgery and she is currently on clear liquid diet. She reports passing gas but denies having a BM. Denies N/V. No abd. pain, CP, SOB. Reports being weak and tired. No fever or chills. Denies any further back pain. - Objective Vital Signs & Weight: Vital Signs (12 hours) Temp Pulse Resp BP Pulse Ox 07/04/19 08:00 96 07/04/19 07:56 98.3 F 93 16 111/71 96 07/04/19 04:27 98.0 F 91 18 113/71 92 L Weight Admit Weight 170 lb 7 oz Weight 170 lb 7 oz I&O: 07/03/19 07/04/19 07/05/19 06:59 06:59 06:59 Intake Total 1200 2733 Output Total 175 50 Balance 1025 2683 Result Diagrams: 07/04/19 06:24 07/04/19 06:23 Hospitalist ROS - Medication Medications: Active Medications Generic Name Dose Route Start Last Admin Trade Name Freq PRN Reason Stop Dose Admin Aspirin 81 mg 07/04/19 09:00 07/04/19 11:16 Ecotrin PO 81 mg DAILY CARMELO Administration Bisacodyl 10 mg 06/28/19 07:51 07/01/19 16:15 Dulcolax [place] 10 mg DAILYPRN PRN Administration Constipation Cyanocobalamin 1,000 mcg 06/28/19 09:00 07/04/19 09:50 Vitamin B-12 IM 1,000 mcg DAILY CARMELO Administration Enoxaparin Sodium 40 mg 06/27/19 09:00 07/04/19 09:56 Lovenox SC 40 mg 0900 CARMELO Administration Folic Acid 1 mg 06/28/19 09:00 07/04/19 11:16 Folvite PO 1 mg DAILY CARMELO Administration Guaifenesin 200 mg 06/28/19 07:51 07/02/19 20:38 Robitussin Sf PO 200 mg Q4H PRN Administration Cough Fosphenytoin Sodium 400 mg/ 58 mls @ 116 mls/hr 07/03/19 21:00 07/03/19 21:51 Sodium Chloride IVPB 58 mls HS CARMELO Administration Dextrose/Sodium Chloride 1,000 mls @ 125 mls/hr 07/04/19 08:30 07/04/19 09:45 D5 0.9% Ns IV 1,000 mls .Q8H CARMELO Administration Levothyroxine Sodium 25 mcg 07/04/19 06:00 07/04/19 05:52 Synthroid IVP 25 mcg 0600 CARMELO Administration Lidocaine 1 patch 07/03/19 12:00 07/04/19 11:16 Lidoderm 5% Patch TD Not Given 1200 CARMELO Miscellaneous Medication 1 each 07/03/19 23:59 07/03/19 23:22 Lidocaine Patch Removal TOP Not Given 2359 CARMELO Morphine Sulfate 2 mg 06/26/19 20:39 06/27/19 22:36 Morphine SLOW IVP 2 mg Q4H PRN Administration Pain Pantoprazole Sodium 40 mg 07/04/19 09:00 07/04/19 09:47 Protonix IVP 40 mg DAILY CARMELO Administration Senna/Docusate Sodium 2 tab 06/28/19 07:51 07/01/19 21:40 Senokot S PO 2 tab BIDPRN PRN Administration Constipation Tramadol HCl 50 mg 06/26/19 20:37 07/01/19 06:14 Ultram PO 50 mg Q6H PRN Administration Moderate Pain (4-6) - Exam General Appearance: NAD, awake alert Eye: PERRL, anicteric sclera ENT: normocephalic atraumatic, no oropharyngeal lesions, moist mucosa Neck: supple, symmetric, no JVD, no thyromegaly, no lymphadenopathy, no carotid bruit Heart: RRR, no murmur, no gallops, no rubs, normal peripheral pulses Respiratory: CTAB, no wheezes, no rales, no ronchi, normal chest expansion, no tachypnea Gastrointestinal: soft, non-tender, non-distended, normal bowel sounds, no palpable masses Hosp A/P (1) SBO (small bowel obstruction) Code(s): K56.609 - UNSP INTESTNL OBST, UNSP TO PARTIAL VERSUS COMPLETE OBST Status: Resolved (2) Vitamin B12 deficiency Code(s): E53.8 - DEFICIENCY OF OTHER SPECIFIED B GROUP VITAMINS Status: Acute (3) Urinary tract infection Status: Resolved Qualifiers: Urinary tract infection type: acute cystitis Hematuria presence: without hematuria Qualified Code(s): N30.00 - Acute cystitis without hematuria (4) Dyslipidemia Code(s): E78.5 - HYPERLIPIDEMIA, UNSPECIFIED Status: Chronic (5) Hypertension Code(s): I10 - ESSENTIAL (PRIMARY) HYPERTENSION Status: Chronic Qualifiers: Hypertension type: essential hypertension Qualified Code(s): I10 - Essential (primary) hypertension (6) Hypothyroid Code(s): E03.9 - HYPOTHYROIDISM, UNSPECIFIED Status: Chronic Qualifiers: Hypothyroidism type: acquired Qualified Code(s): E03.9 - Hypothyroidism, unspecified - Plan PT/OT, DVT proph w/lovenox Hosp A/P (1) SBO (small bowel obstruction) Resolved Surgery on board. NG tube DC by surgery this AM Continue clear liquids and stool softeners Advance diet as per surgery OOB to chair TID with assist (2) Vitamin B12 deficiency Code(s): E53.8 - DEFICIENCY OF OTHER SPECIFIED B GROUP VITAMINS Status: Acute Plan: Change to PO B12 (3) Urinary tract infection Status: Resolved Qualifiers: Urinary tract infection type: acute cystitis Hematuria presence: without hematuria Qualified Code(s): N30.00 - Acute cystitis without hematuria Plan: Resolved S/p 7 days of levaquin (4) Dyslipidemia Code(s): E78.5 - HYPERLIPIDEMIA, UNSPECIFIED Status: Chronic Plan: Resume statin (5) Hypertension Code(s): I10 - ESSENTIAL (PRIMARY) HYPERTENSION Status: Chronic Qualifiers: Hypertension type: essential hypertension Qualified Code(s): I10 - Essential (primary) hypertension Plan: Stable Monitor and resume meds PRN (6) Hypothyroid Code(s): E03.9 - HYPOTHYROIDISM, UNSPECIFIED Status: Chronic Qualifiers: Hypothyroidism type: acquired Qualified Code(s): E03.9 - Hypothyroidism, unspecified Plan: Change to PO synthroid
[2019-07-04] MEDS ORDERED: Polyethylene Glycol 3350 17 GM Packet PO SCH (13:30)
[2019-07-04] MEDS: Atorvastatin Calcium 10 MG TAB PO SCH (20:03)
[2019-07-05] MEDS: Dextrose 5 % And 0.9 % NaCl 1,000 ML IV SCH (02:20)
[2019-07-05] MEDS: Levothyroxine Sodium 50 MCG TAB PO SCH (05:40)
[2019-07-05 06:51] LABS: #Eosinphils 0.4 thou/uL (0.0-0.7); #Lymphocytes 1.7 thou/uL (1.20-3.40); #Monocytes 0.7 thou/uL (0.11-0.59); #Neutrophils 3.8 thou/uL (1.40-6.50); %Basophils 0.5 % (0.0-1.0); %Eosinophils 6.6 % (0.0-10.0); %Lymphocytes 25.8 % (21.0-51.0); %Monocytes 9.8 % (0.0-10.0); %Neutrophils 57.2 % (42.0-75.0); Hemoglobin 12.4 g/dL (12.0-16.0); Mean Corpuscular HGB CONC 33.2 g/dL (32.0-36.0); Mean Corpuscular Hemoglobin 32.9 pg (27.0-31.0); Mean Platelet Volume 6.6 fL (7.4-10.4); Platelet Count 296 thou/uL (130-400); RBC Distribution Width 11.6 % (11.5-14.5); Red Blood Cell (RBC) Count 3.78 mill/uL (4.20-5.40); White Blood Cell (WBC) Count 6.7 thou/uL (4.8-10.8)
[2019-07-05 07:09] LABS: Anion Gap 9 mmol/L (10-20); BUN (Urea Nitrogen) 8 mg/dL (9.8-20.1); Calc. Creatinine Clearance 94 mL/min (70-130); Calcium 8.6 mg/dL (7.8-10.44); Carbon Dioxide 24 mmol/L (23-31); Chloride 109 mmol/L (98-107); Estimated GFR-MDRD Greater than 90; Glucose 99 mg/dL (83-110); Sodium 138 mmol/L (136-145)
[2019-07-05] MEDS: Cyanocobalamin (Vitamin B-12) 1,000 MCG TAB PO SCH (08:03)
[2019-07-05] MEDS: Folic Acid 1 MG TAB PO SCH (08:03)
[2019-07-05] MEDS: Aspirin 81 mg Enteric Coated Tablet PO SCH (08:03)
[2019-07-05] MEDS: Enoxaparin Sodium 40 MG/0.4 ML SYRINGE SC SCH (08:03)
--- NOTE | 2019-07-05 08:57 | PRG ---
DATE OF SERVICE: 07/05/2019 SUBJECTIVE: The patient is feeling much better. No nausea or vomiting. She is tolerating liquids well, passing flatus, small bowel movement. OBJECTIVE: VITAL SIGNS: Temperature 97, pulse 93, and blood pressure 111/70. GENERAL: She is awake, alert, in no apparent distress. ABDOMEN: Soft, nondistended, and nontender. ASSESSMENT: Doing well. PLAN: Full liquid diet, advance as tolerated, saline lock IV. Further management per Medicine. Job ID: [id number]
--- NOTE | 2019-07-05 14:54 | PDOC.HOSPP ---
- Subjective Encounter Date: 07/05/19 Encounter Time: 14:15 Subjective: Reports having a BM this AM. She is passing gas. She has been advanced to solid food by surgery. No fever, chills. Reports that her back pain is better. No SOB , CP. - Objective Vital Signs & Weight: Vital Signs (12 hours) Temp Pulse Resp BP Pulse Ox 07/05/19 08:00 94 L 07/05/19 07:48 97.9 F 93 18 111/70 94 L Weight Admit Weight 170 lb 7 oz Weight 170 lb 7 oz I&O: 07/04/19 07/05/19 07/06/19 06:59 06:59 06:59 Intake Total 2733 4400 Output Total 50 Balance 2683 4400 Result Diagrams: 07/05/19 06:01 07/05/19 06:01 Hospitalist ROS - Medication Medications: Active Medications Generic Name Dose Route Start Last Admin Trade Name Freq PRN Reason Stop Dose Admin Aspirin 81 mg 07/04/19 09:00 07/05/19 08:03 Ecotrin PO 81 mg DAILY CARMELO Administration Atorvastatin Calcium 10 mg 07/04/19 21:00 07/04/19 20:03 Lipitor PO 10 mg HS CARMELO Administration Bisacodyl 10 mg 06/28/19 07:51 07/01/19 16:15 Dulcolax [place] 10 mg DAILYPRN PRN Administration Constipation Cyanocobalamin 1,000 mcg 07/05/19 09:00 07/05/19 08:03 Vitamin B-12 PO 1,000 mcg DAILY CARMELO Administration Enoxaparin Sodium 40 mg 06/27/19 09:00 07/05/19 08:03 Lovenox SC 40 mg 0900 CARMELO Administration Folic Acid 1 mg 06/28/19 09:00 07/05/19 08:03 Folvite PO 1 mg DAILY CARMELO Administration Guaifenesin 200 mg 06/28/19 07:51 07/02/19 20:38 Robitussin Sf PO 200 mg Q4H PRN Administration Cough Levothyroxine Sodium 50 mcg 07/05/19 06:00 07/05/19 05:40 Synthroid PO 50 mcg 0600 CARMELO Administration Phenytoin Sodium 400 mg 07/04/19 21:00 07/04/19 20:03 Dilantin PO 400 mg HS CARMELO Administration Senna/Docusate Sodium 2 tab 06/28/19 07:51 07/01/19 21:40 Senokot S PO 2 tab BIDPRN PRN Administration Constipation Tramadol HCl 50 mg 06/26/19 20:37 07/01/19 06:14 Ultram PO 50 mg Q6H PRN Administration Moderate Pain (4-6) - Exam General Appearance: NAD, awake alert ENT: normocephalic atraumatic, no oropharyngeal lesions, moist mucosa Neck: supple, no thyromegaly, no lymphadenopathy Heart: RRR, no murmur, no gallops, no rubs Respiratory: CTAB, no wheezes, normal chest expansion, normal percussion Gastrointestinal: soft, non-tender, non-distended, normal bowel sounds, no palpable masses Hosp A/P (1) SBO (small bowel obstruction) Code(s): K56.609 - UNSP INTESTNL OBST, UNSP TO PARTIAL VERSUS COMPLETE OBST Status: Resolved (2) Vitamin B12 deficiency Code(s): E53.8 - DEFICIENCY OF OTHER SPECIFIED B GROUP VITAMINS Status: Acute (3) Urinary tract infection Status: Resolved Qualifiers: Urinary tract infection type: acute cystitis Hematuria presence: without hematuria Qualified Code(s): N30.00 - Acute cystitis without hematuria (4) Dyslipidemia Code(s): E78.5 - HYPERLIPIDEMIA, UNSPECIFIED Status: Chronic (5) Hypertension Code(s): I10 - ESSENTIAL (PRIMARY) HYPERTENSION Status: Chronic Qualifiers: Hypertension type: essential hypertension Qualified Code(s): I10 - Essential (primary) hypertension (6) Hypothyroid Code(s): E03.9 - HYPOTHYROIDISM, UNSPECIFIED Status: Chronic Qualifiers: Hypothyroidism type: acquired Qualified Code(s): E03.9 - Hypothyroidism, unspecified - Plan out of bed/ambulate Hosp A/P (1) SBO (small bowel obstruction) Resolved Advanced to solid food by surgery today Had a BM today Surgery has signed off. Appreciate input and assistance OOB to chair TID with assist (2) Vitamin B12 deficiency Code(s): E53.8 - DEFICIENCY OF OTHER SPECIFIED B GROUP VITAMINS Status: Acute Plan: Continue PO B12 (3) Urinary tract infection Status: Resolved Qualifiers: Urinary tract infection type: acute cystitis Hematuria presence: without hematuria Qualified Code(s): N30.00 - Acute cystitis without hematuria Plan: Resolved S/p 7 days of levaquin (4) Dyslipidemia Code(s): E78.5 - HYPERLIPIDEMIA, UNSPECIFIED Status: Chronic Plan: Continue statin (5) Hypertension Code(s): I10 - ESSENTIAL (PRIMARY) HYPERTENSION Status: Chronic Qualifiers: Hypertension type: essential hypertension Qualified Code(s): I10 - Essential (primary) hypertension Plan: Stable Monitor and resume meds as necessary (6) Hypothyroid Code(s): E03.9 - HYPOTHYROIDISM, UNSPECIFIED Status: Chronic Qualifiers: Hypothyroidism type: acquired Qualified Code(s): E03.9 - Hypothyroidism, unspecified Plan: Continue current dose of synthroid
[2019-07-05] MEDS: Atorvastatin Calcium 10 MG TAB PO SCH (19:58)
[2019-07-06] MEDS: Levothyroxine Sodium 50 MCG TAB PO SCH (05:35)
[2019-07-06] MEDS: Cyanocobalamin (Vitamin B-12) 1,000 MCG TAB PO SCH (10:19)
[2019-07-06] MEDS: Enoxaparin Sodium 40 MG/0.4 ML SYRINGE SC SCH (10:19)
[2019-07-06] MEDS: Aspirin 81 mg Enteric Coated Tablet PO SCH (10:19)
[2019-07-06] MEDS: Folic Acid 1 MG TAB PO SCH (10:19)
--- NOTE | 2019-07-06 12:52 | PDOC.HOSPP ---
- Subjective Encounter Date: 07/06/19 Encounter Time: 12:51 Subjective: Patient reports that she had a total of 2 bowel movements yesterday. She is accompanied by her daughter in the room. Daughter states that she toured the rehab place. Patient reports tolerating her diet without any nausea or vomiting. No abd. pain, diarrhea. No fever, chills, SOB, CP. - Objective Vital Signs & Weight: Vital Signs (12 hours) Temp Pulse Resp BP Pulse Ox 07/06/19 08:00 98.4 F 94 16 115/70 94 L 07/06/19 04:00 98.1 F 66 16 149/75 H 95 Weight Admit Weight 170 lb 7 oz Weight 170 lb 7 oz I&O: 07/05/19 07/06/19 07/07/19 06:59 06:59 06:59 Intake Total 4400 2125 Balance 4400 2125 Result Diagrams: 07/05/19 06:01 07/05/19 06:01 Hospitalist ROS - Medication Medications: Active Medications Generic Name Dose Route Start Last Admin Trade Name Freq PRN Reason Stop Dose Admin Aspirin 81 mg 07/04/19 09:00 07/06/19 10:19 Ecotrin PO 81 mg DAILY CARMELO Administration Atorvastatin Calcium 10 mg 07/04/19 21:00 07/05/19 19:58 Lipitor PO 10 mg HS CARMELO Administration Bisacodyl 10 mg 06/28/19 07:51 07/01/19 16:15 Dulcolax [place] 10 mg DAILYPRN PRN Administration Constipation Cyanocobalamin 1,000 mcg 07/05/19 09:00 07/06/19 10:19 Vitamin B-12 PO 1,000 mcg DAILY CARMELO Administration Enoxaparin Sodium 40 mg 06/27/19 09:00 07/06/19 10:19 Lovenox SC 40 mg 0900 CARMELO Administration Folic Acid 1 mg 06/28/19 09:00 07/06/19 10:19 Folvite PO 1 mg DAILY CARMELO Administration Guaifenesin 200 mg 06/28/19 07:51 07/02/19 20:38 Robitussin Sf PO 200 mg Q4H PRN Administration Cough Levothyroxine Sodium 50 mcg 07/05/19 06:00 07/06/19 05:35 Synthroid PO 50 mcg 0600 CARMELO Administration Phenytoin Sodium 400 mg 07/04/19 21:00 07/05/19 19:58 Dilantin PO 400 mg HS CARMELO Administration Senna/Docusate Sodium 2 tab 06/28/19 07:51 07/01/19 21:40 Senokot S PO 2 tab BIDPRN PRN Administration Constipation Tramadol HCl 50 mg 06/26/19 20:37 07/01/19 06:14 Ultram PO 50 mg Q6H PRN Administration Moderate Pain (4-6) - Exam General Appearance: NAD, awake alert Eye: PERRL, anicteric sclera ENT: normocephalic atraumatic, no oropharyngeal lesions, moist mucosa Neck: supple, symmetric, no lymphadenopathy Heart: RRR, no murmur, no rubs, normal peripheral pulses Respiratory: CTAB, no wheezes, no rales, no ronchi Gastrointestinal: soft, non-tender, non-distended, normal bowel sounds Hosp A/P (1) SBO (small bowel obstruction) Code(s): K56.609 - UNSP INTESTNL OBST, UNSP TO PARTIAL VERSUS COMPLETE OBST Status: Resolved (2) Vitamin B12 deficiency Code(s): E53.8 - DEFICIENCY OF OTHER SPECIFIED B GROUP VITAMINS Status: Acute (3) Dyslipidemia Code(s): E78.5 - HYPERLIPIDEMIA, UNSPECIFIED Status: Chronic (4) Hypertension Code(s): I10 - ESSENTIAL (PRIMARY) HYPERTENSION Status: Chronic Qualifiers: Hypertension type: essential hypertension Qualified Code(s): I10 - Essential (primary) hypertension (5) Hypothyroid Code(s): E03.9 - HYPOTHYROIDISM, UNSPECIFIED Status: Chronic Qualifiers: Hypothyroidism type: acquired Qualified Code(s): E03.9 - Hypothyroidism, unspecified - Plan PT/OT, out of bed/ambulate Hosp A/P (1) SBO (small bowel obstruction) Resolved On solid diet OOB to chair TID with meals with assist Awaiting insurance auth for transfer to SNF for rehab (2) Vitamin B12 deficiency Code(s): E53.8 - DEFICIENCY OF OTHER SPECIFIED B GROUP VITAMINS Status: Acute Plan: Continue PO B12 (3) Urinary tract infection Status: Resolved Qualifiers: Urinary tract infection type: acute cystitis Hematuria presence: without hematuria Qualified Code(s): N30.00 - Acute cystitis without hematuria Plan: Resolved S/p 7 days of levaquin (4) Dyslipidemia Code(s): E78.5 - HYPERLIPIDEMIA, UNSPECIFIED Status: Chronic Plan: Continue statin (5) Hypertension Code(s): I10 - ESSENTIAL (PRIMARY) HYPERTENSION Status: Chronic Qualifiers: Hypertension type: essential hypertension Qualified Code(s): I10 - Essential (primary) hypertension Plan: Stable Monitor and resume meds as necessary (6) Hypothyroid Code(s): E03.9 - HYPOTHYROIDISM, UNSPECIFIED Status: Chronic Qualifiers: Hypothyroidism type: acquired Qualified Code(s): E03.9 - Hypothyroidism, unspecified Plan: Continue current dose of synthroid
[2019-07-06] MEDS: Atorvastatin Calcium 10 MG TAB PO SCH (20:45)
[2019-07-07] MEDS: Levothyroxine Sodium 50 MCG TAB PO SCH (05:32)
[2019-07-07] MEDS: Folic Acid 1 MG TAB PO SCH (09:21)
[2019-07-07] MEDS: Cyanocobalamin (Vitamin B-12) 1,000 MCG TAB PO SCH (09:21)
[2019-07-07] MEDS: Enoxaparin Sodium 40 MG/0.4 ML SYRINGE SC SCH (09:21)
[2019-07-07] MEDS: Aspirin 81 mg Enteric Coated Tablet PO SCH (09:22)
--- NOTE | 2019-07-07 14:54 | PDOC.HOSPP ---
- Subjective Encounter Date: 07/07/19 Encounter Time: 10:45 Subjective: Reports having BMs. No CP, SOB. Able to tolerate sitting in the chair. - Objective Vital Signs & Weight: Vital Signs (12 hours) Temp Pulse Resp BP Pulse Ox 07/07/19 08:19 98.3 F 90 18 127/82 93 L 07/07/19 04:26 98.4 F 94 16 134/77 90 L Weight Admit Weight 170 lb 7 oz Weight 170 lb 7 oz I&O: 07/06/19 07/07/19 07/08/19 06:59 06:59 06:59 Intake Total 2124 1520 Balance 2124 1520 Result Diagrams: 07/05/19 06:01 07/05/19 06:01 Hospitalist ROS - Medication Medications: Active Medications Generic Name Dose Route Start Last Admin Trade Name Freq PRN Reason Stop Dose Admin Aspirin 81 mg 07/04/19 09:00 07/07/19 09:22 Ecotrin PO 81 mg DAILY CARMELO Administration Atorvastatin Calcium 10 mg 07/04/19 21:00 07/06/19 20:45 Lipitor PO 10 mg HS CARMELO Administration Bisacodyl 10 mg 06/28/19 07:51 07/01/19 16:15 Dulcolax [place] 10 mg DAILYPRN PRN Administration Constipation Cyanocobalamin 1,000 mcg 07/05/19 09:00 07/07/19 09:21 Vitamin B-12 PO 1,000 mcg DAILY CARMELO Administration Enoxaparin Sodium 40 mg 06/27/19 09:00 07/07/19 09:21 Lovenox SC 40 mg 0900 CARMELO Administration Folic Acid 1 mg 06/28/19 09:00 07/07/19 09:21 Folvite PO 1 mg DAILY CARMELO Administration Guaifenesin 200 mg 06/28/19 07:51 07/02/19 20:38 Robitussin Sf PO 200 mg Q4H PRN Administration Cough Levothyroxine Sodium 50 mcg 07/05/19 06:00 07/07/19 05:32 Synthroid PO 50 mcg 0600 CARMELO Administration Phenytoin Sodium 400 mg 07/04/19 21:00 07/06/19 20:45 Dilantin PO 400 mg HS CARMELO Administration Senna/Docusate Sodium 2 tab 06/28/19 07:51 07/01/19 21:40 Senokot S PO 2 tab BIDPRN PRN Administration Constipation - Exam General Appearance: NAD, awake alert ENT: normocephalic atraumatic, no oropharyngeal lesions, moist mucosa Neck: supple, no thyromegaly, no lymphadenopathy Heart: RRR, no murmur, no gallops, normal peripheral pulses Respiratory: CTAB, no wheezes, no ronchi, normal chest expansion Gastrointestinal: soft, non-tender, non-distended, normal bowel sounds Hosp A/P (1) SBO (small bowel obstruction) Code(s): K56.609 - UNSP INTESTNL OBST, UNSP TO PARTIAL VERSUS COMPLETE OBST Status: Resolved (2) Vitamin B12 deficiency Code(s): E53.8 - DEFICIENCY OF OTHER SPECIFIED B GROUP VITAMINS Status: Acute (3) Dyslipidemia Code(s): E78.5 - HYPERLIPIDEMIA, UNSPECIFIED Status: Chronic (4) Hypertension Code(s): I10 - ESSENTIAL (PRIMARY) HYPERTENSION Status: Chronic Qualifiers: Hypertension type: essential hypertension Qualified Code(s): I10 - Essential (primary) hypertension (5) Hypothyroid Code(s): E03.9 - HYPOTHYROIDISM, UNSPECIFIED Status: Chronic Qualifiers: Hypothyroidism type: acquired Qualified Code(s): E03.9 - Hypothyroidism, unspecified - Plan PT/OT Hosp A/P (1) SBO (small bowel obstruction) Resolved On solid diet Having regular BMs OOB to chair TID with meals with assist Awaiting insurance auth for transfer to SNF for rehab (2) Vitamin B12 deficiency Code(s): E53.8 - DEFICIENCY OF OTHER SPECIFIED B GROUP VITAMINS Status: Acute Plan: Continue PO B12 (3) Urinary tract infection Status: Resolved Qualifiers: Urinary tract infection type: acute cystitis Hematuria presence: without hematuria Qualified Code(s): N30.00 - Acute cystitis without hematuria Plan: Resolved S/p 7 days of levaquin (4) Dyslipidemia Code(s): E78.5 - HYPERLIPIDEMIA, UNSPECIFIED Status: Chronic Plan: Continue statin (5) Hypertension Code(s): I10 - ESSENTIAL (PRIMARY) HYPERTENSION Status: Chronic Qualifiers: Hypertension type: essential hypertension Qualified Code(s): I10 - Essential (primary) hypertension Plan: Stable Monitor and resume meds as necessary (6) Hypothyroid Code(s): E03.9 - HYPOTHYROIDISM, UNSPECIFIED Status: Chronic Qualifiers: Hypothyroidism type: acquired Qualified Code(s): E03.9 - Hypothyroidism, unspecified Plan: Continue current dose of synthroid DC DISPO - Once bed at SNF/Rehab available
[2019-07-07] MEDS: Calcium Carbonate 500 MG ChewTAB PO PRN (17:50)
[2019-07-07] MEDS: Atorvastatin Calcium 10 MG TAB PO SCH (20:14)
[2019-07-08] MEDS: Levothyroxine Sodium 50 MCG TAB PO SCH (05:26)
[2019-07-08 06:10] LABS: #Eosinphils 0.3 thou/uL (0.0-0.7); #Lymphocytes 1.6 thou/uL (1.20-3.40); #Neutrophils 3.8 thou/uL (1.40-6.50); %Basophils 0.7 % (0.0-1.0); %Eosinophils 4.6 % (0.0-10.0); %Lymphocytes 23.4 % (21.0-51.0); %Monocytes 14.3 % (0.0-10.0); %Neutrophils 56.9 % (42.0-75.0); Hemoglobin 13.1 g/dL (12.0-16.0); Mean Corpuscular HGB CONC 33.4 g/dL (32.0-36.0); Mean Corpuscular Hemoglobin 32.9 pg (27.0-31.0); Mean Corpuscular Volume 98.7 fL (78.0-98.0); Mean Platelet Volume 6.5 fL (7.4-10.4); Platelet Count 350 thou/uL (130-400); RBC Distribution Width 11.7 % (11.5-14.5); Red Blood Cell (RBC) Count 3.99 mill/uL (4.20-5.40); White Blood Cell (WBC) Count 6.7 thou/uL (4.8-10.8)
[2019-07-08 06:34] LABS: ALT (SGPT) 36 U/L (8-55); AST (SGOT) 40 U/L (5-34); Albumin 3.1 g/dL (3.4-4.8); Alkaline Phosphatase 209 U/L (40-110); Anion Gap 9 mmol/L (10-20); BUN (Urea Nitrogen) 10 mg/dL (9.8-20.1); Bilirubin, Total 0.2 mg/dL (0.2-1.2); Calc. Creatinine Clearance 85 mL/min (70-130); Calcium 9.2 mg/dL (7.8-10.44); Carbon Dioxide 26 mmol/L (23-31); Chloride 106 mmol/L (98-107); Estimated GFR-MDRD 83; Globulin 2.7 g/dL (2.4-3.5); Glucose 85 mg/dL (83-110); Potassium 4.3 mmol/L (3.5-5.1); Protein, Total 5.8 g/dL (6.0-8.3); Sodium 137 mmol/L (136-145)
[2019-07-08] MEDS: Aspirin 81 mg Enteric Coated Tablet PO SCH (08:59)
[2019-07-08] MEDS: Folic Acid 1 MG TAB PO SCH (08:59)
[2019-07-08] MEDS: Enoxaparin Sodium 40 MG/0.4 ML SYRINGE SC SCH (08:59)
[2019-07-08] MEDS: Cyanocobalamin (Vitamin B-12) 1,000 MCG TAB PO SCH (09:02)
[2019-07-08] MEDS: Senokot S 8.6-50 MG TAB PO PRN (09:10)
--- NOTE | 2019-07-08 09:54 | PDOC.HOSPP ---
- Subjective Encounter Date: 07/08/19 Encounter Time: 09:49 Subjective: no complaints - Objective Vital Signs & Weight: Vital Signs (12 hours) Temp Pulse Resp BP Pulse Ox 07/08/19 08:20 98.0 F 94 20 124/60 93 L 07/08/19 07:34 93 L 07/08/19 06:06 98.2 F 97 16 112/72 93 L Weight Admit Weight 170 lb 7 oz Weight 170 lb 7 oz I&O: 07/07/19 07/08/19 07/09/19 06:59 06:59 06:59 Intake Total 1520 1740 Balance 1520 1740 Result Diagrams: 07/08/19 05:22 07/08/19 05:21 Hospitalist ROS - Medication Medications: Active Medications Generic Name Dose Route Start Last Admin Trade Name Freq PRN Reason Stop Dose Admin Aspirin 81 mg 07/04/19 09:00 07/08/19 08:59 Ecotrin PO 81 mg DAILY CARMELO Administration Atorvastatin Calcium 10 mg 07/04/19 21:00 07/07/19 20:14 Lipitor PO 10 mg HS CARMELO Administration Bisacodyl 10 mg 06/28/19 07:51 07/01/19 16:15 Dulcolax [place] 10 mg DAILYPRN PRN Administration Constipation Calcium Carbonate 500 mg 07/07/19 17:45 07/07/19 17:50 Tums PO 500 mg Q6H PRN Administration Indigestion Cyanocobalamin 1,000 mcg 07/05/19 09:00 07/08/19 09:02 Vitamin B-12 PO 1,000 mcg DAILY CARMELO Administration Enoxaparin Sodium 40 mg 06/27/19 09:00 07/08/19 08:59 Lovenox SC 40 mg 0900 CARMELO Administration Folic Acid 1 mg 06/28/19 09:00 07/08/19 08:59 Folvite PO 1 mg DAILY CARMELO Administration Guaifenesin 200 mg 06/28/19 07:51 07/02/19 20:38 Robitussin Sf PO 200 mg Q4H PRN Administration Cough Levothyroxine Sodium 50 mcg 07/05/19 06:00 07/08/19 05:26 Synthroid PO 50 mcg 0600 CARMELO Administration Phenytoin Sodium 400 mg 07/04/19 21:00 07/07/19 20:14 Dilantin PO 400 mg HS CARMELO Administration Senna/Docusate Sodium 2 tab 06/28/19 07:51 07/08/19 09:10 Senokot S PO 2 tab BIDPRN PRN Administration Constipation - Exam General Appearance: awake alert Neck: no JVD Heart: RRR, no murmur Respiratory: CTAB Gastrointestinal: soft, normal bowel sounds Extremities: no edema Hosp A/P (1) SBO (small bowel obstruction) Code(s): K56.609 - UNSP INTESTNL OBST, UNSP TO PARTIAL VERSUS COMPLETE OBST Status: Resolved (2) Hypothyroid Code(s): E03.9 - HYPOTHYROIDISM, UNSPECIFIED Status: Chronic Qualifiers: Hypothyroidism type: acquired Qualified Code(s): E03.9 - Hypothyroidism, unspecified (3) Seizure Code(s): R56.9 - UNSPECIFIED CONVULSIONS Status: Chronic (4) Dyslipidemia Code(s): E78.5 - HYPERLIPIDEMIA, UNSPECIFIED Status: Chronic (5) Hypertension Code(s): I10 - ESSENTIAL (PRIMARY) HYPERTENSION Status: Chronic Qualifiers: Hypertension type: essential hypertension Qualified Code(s): I10 - Essential (primary) hypertension - Plan SBO resolved cont routine meds placement pending
[2019-07-08] MEDS: Calcium Carbonate 500 MG ChewTAB PO PRN (12:45)
[2019-07-08] MEDS: Atorvastatin Calcium 10 MG TAB PO SCH (21:28)
[2019-07-09] MEDS: Calcium Carbonate 500 MG ChewTAB PO PRN (03:16)
[2019-07-09] MEDS: Levothyroxine Sodium 50 MCG TAB PO SCH (05:44)
[2019-07-09] MEDS: Senokot S 8.6-50 MG TAB PO PRN (05:44)
[2019-07-09] MEDS: Folic Acid 1 MG TAB PO SCH (08:41)
[2019-07-09] MEDS: Cyanocobalamin (Vitamin B-12) 1,000 MCG TAB PO SCH (08:41)
[2019-07-09] MEDS: Enoxaparin Sodium 40 MG/0.4 ML SYRINGE SC SCH (08:41)
[2019-07-09] MEDS: Aspirin 81 mg Enteric Coated Tablet PO SCH (08:41)
--- NOTE | 2019-07-09 10:18 | PDOC.HOSPP ---
- Subjective Encounter Date: 07/09/19 Encounter Time: 10:12 Subjective: no complaints - Objective Vital Signs & Weight: Vital Signs (12 hours) Temp Pulse Resp BP Pulse Ox 07/09/19 07:40 97.5 F L 89 18 128/81 98 Weight Admit Weight 170 lb 7 oz Weight 170 lb 7 oz I&O: 07/08/19 07/09/19 07/10/19 06:59 06:59 06:59 Intake Total 1740 1320 Balance 1740 1320 Result Diagrams: 07/08/19 05:22 07/08/19 05:21 Hospitalist ROS - Medication Medications: Active Medications Generic Name Dose Route Start Last Admin Trade Name Freq PRN Reason Stop Dose Admin Aspirin 81 mg 07/04/19 09:00 07/09/19 08:41 Ecotrin PO 81 mg DAILY CARMELO Administration Atorvastatin Calcium 10 mg 07/04/19 21:00 07/08/19 21:28 Lipitor PO 10 mg HS CARMELO Administration Bisacodyl 10 mg 06/28/19 07:51 07/01/19 16:15 Dulcolax [place] 10 mg DAILYPRN PRN Administration Constipation Calcium Carbonate 500 mg 07/07/19 17:45 07/09/19 03:16 Tums PO 500 mg Q6H PRN Administration Indigestion Cyanocobalamin 1,000 mcg 07/05/19 09:00 07/09/19 08:41 Vitamin B-12 PO 1,000 mcg DAILY CARMELO Administration Enoxaparin Sodium 40 mg 06/27/19 09:00 07/09/19 08:41 Lovenox SC 40 mg 0900 CARMELO Administration Folic Acid 1 mg 06/28/19 09:00 07/09/19 08:41 Folvite PO 1 mg DAILY CARMELO Administration Guaifenesin 200 mg 06/28/19 07:51 07/02/19 20:38 Robitussin Sf PO 200 mg Q4H PRN Administration Cough Levothyroxine Sodium 50 mcg 07/05/19 06:00 07/09/19 05:44 Synthroid PO 50 mcg 0600 CARMELO Administration Phenytoin Sodium 400 mg 07/04/19 21:00 07/08/19 21:29 Dilantin PO 400 mg HS CARMELO Administration Senna/Docusate Sodium 2 tab 06/28/19 07:51 07/09/19 05:44 Senokot S PO 2 tab BIDPRN PRN Administration Constipation - Exam General Appearance: awake alert Neck: no JVD Heart: RRR, no murmur Respiratory: CTAB Gastrointestinal: soft, normal bowel sounds Extremities: no edema Hosp A/P (1) SBO (small bowel obstruction) Code(s): K56.609 - UNSP INTESTNL OBST, UNSP TO PARTIAL VERSUS COMPLETE OBST Status: Resolved (2) Hypothyroid Code(s): E03.9 - HYPOTHYROIDISM, UNSPECIFIED Status: Chronic Qualifiers: Hypothyroidism type: acquired Qualified Code(s): E03.9 - Hypothyroidism, unspecified (3) Seizure Code(s): R56.9 - UNSPECIFIED CONVULSIONS Status: Chronic (4) Dyslipidemia Code(s): E78.5 - HYPERLIPIDEMIA, UNSPECIFIED Status: Chronic (5) Hypertension Code(s): I10 - ESSENTIAL (PRIMARY) HYPERTENSION Status: Chronic Qualifiers: Hypertension type: essential hypertension Qualified Code(s): I10 - Essential (primary) hypertension - Plan cont po meds, asa, statin, thyroid replacement , etc placement complicated by family decision to change requests after approval by SADE Silva
[2019-07-09] MEDS: Atorvastatin Calcium 10 MG TAB PO SCH (20:49)
[2019-07-10] MEDS: Levothyroxine Sodium 50 MCG TAB PO SCH (05:44)
[2019-07-10] MEDS: Folic Acid 1 MG TAB PO SCH (08:47)
[2019-07-10] MEDS: Aspirin 81 mg Enteric Coated Tablet PO SCH (08:47)
[2019-07-10] MEDS: Cyanocobalamin (Vitamin B-12) 1,000 MCG TAB PO SCH (08:47)
[2019-07-10] MEDS: Enoxaparin Sodium 40 MG/0.4 ML SYRINGE SC SCH (08:48)
--- NOTE | 2019-07-10 17:41 | PDOC.HOSPP ---
- Subjective Subjective: Seen and examined. Discussed the past several weeks and months of events including the of her , debility and falls. Urinary tract infection and deep ability. Patient clinically depressed. Offered antidepressant therapy, patient states that she "goes crazy" when those medications are started and she can't take them. All questions answered in detail. Patient happy with plan of care. - Objective Vital Signs & Weight: Vital Signs (12 hours) Temp Pulse Resp BP Pulse Ox 07/10/19 08:00 95 07/10/19 07:15 97.8 F 91 18 112/71 95 Weight Admit Weight 170 lb 7 oz Weight 170 lb 7 oz I&O: 07/09/19 07/10/19 07/11/19 06:59 06:59 06:59 Intake Total 1320 1110 1000 Balance 1320 1110 1000 Result Diagrams: 07/08/19 05:22 07/08/19 05:21 Radiology Reviewed by me: Yes Hospitalist ROS - Review of Systems All other systems reviewed; all pertinent +/- noted in HPI/Subj - Medication Medications: Active Medications Generic Name Dose Route Start Last Admin Trade Name Freq PRN Reason Stop Dose Admin Aspirin 81 mg 07/04/19 09:00 07/10/19 08:47 Ecotrin PO 81 mg DAILY CARMELO Administration Atorvastatin Calcium 10 mg 07/04/19 21:00 07/09/19 20:49 Lipitor PO 10 mg HS CARMELO Administration Bisacodyl 10 mg 06/28/19 07:51 07/01/19 16:15 Dulcolax [place] 10 mg DAILYPRN PRN Administration Constipation Calcium Carbonate 500 mg 07/07/19 17:45 07/09/19 03:16 Tums PO 500 mg Q6H PRN Administration Indigestion Cyanocobalamin 1,000 mcg 07/05/19 09:00 07/10/19 08:47 Vitamin B-12 PO 1,000 mcg DAILY CARMELO Administration Enoxaparin Sodium 40 mg 06/27/19 09:00 07/10/19 08:48 Lovenox SC 40 mg 0900 CARMELO Administration Folic Acid 1 mg 06/28/19 09:00 07/10/19 08:47 Folvite PO 1 mg DAILY CARMELO Administration Guaifenesin 200 mg 06/28/19 07:51 07/02/19 20:38 Robitussin Sf PO 200 mg Q4H PRN Administration Cough Levothyroxine Sodium 50 mcg 07/05/19 06:00 07/10/19 05:44 Synthroid PO 50 mcg 0600 CARMELO Administration Phenytoin Sodium 400 mg 07/04/19 21:00 07/09/19 20:50 Dilantin PO 400 mg HS CARMELO Administration Senna/Docusate Sodium 2 tab 06/28/19 07:51 07/09/19 05:44 Senokot S PO 2 tab BIDPRN PRN Administration Constipation - Exam General Appearance: NAD, awake alert Eye: anicteric sclera ENT: normocephalic atraumatic, moist mucosa Neck: supple, symmetric, no lymphadenopathy Heart: no murmur, no gallops, no rubs Respiratory: CTAB, no wheezes, no rales, no ronchi, normal chest expansion Gastrointestinal: soft, non-tender, non-distended, no guarding, no rigidity Extremities: no clubbing, no edema Skin: no lesions Neurological: cranial nerve grossly intact, no focal deficits Musculoskeletal: generalized weakness Psychiatric: normal affect, A&O x 3 Hosp A/P (1) Debility Code(s): R53.81 - OTHER MALAISE Status: Acute (2) Ataxia Code(s): R27.0 - ATAXIA, UNSPECIFIED Status: Acute (3) Vitamin B12 deficiency Code(s): E53.8 - DEFICIENCY OF OTHER SPECIFIED B GROUP VITAMINS Status: Acute (4) Dyslipidemia Code(s): E78.5 - HYPERLIPIDEMIA, UNSPECIFIED Status: Chronic (5) Fatty liver Code(s): K76.0 - FATTY (CHANGE OF) LIVER, NOT ELSEWHERE CLASSIFIED Status: Chronic (6) Hypertension Code(s): I10 - ESSENTIAL (PRIMARY) HYPERTENSION Status: Chronic Qualifiers: Hypertension type: essential hypertension Qualified Code(s): I10 - Essential (primary) hypertension (7) Hypothyroid Code(s): E03.9 - HYPOTHYROIDISM, UNSPECIFIED Status: Chronic Qualifiers: Hypothyroidism type: acquired Qualified Code(s): E03.9 - Hypothyroidism, unspecified (8) Seizure Code(s): R56.9 - UNSPECIFIED CONVULSIONS Status: Chronic (9) Urinary tract infection Status: Resolved Qualifiers: Urinary tract infection type: acute cystitis Hematuria presence: without hematuria Qualified Code(s): N30.00 - Acute cystitis without hematuria - Plan Plan: medical unit with telemetry patient has completed a full course of antibiotics for urinary tract infection physical therapy and occupational therapy evaluation and treatment patient has been recommended safe for discharge to [facility] facility for continuation of inpatient PT and OT services continue home medications as able blood pressure control glucose control G.I. prophylaxis DVT prophylaxis disposition: patient stable for lower level of care, pending insurance approval
[2019-07-10] MEDS: Atorvastatin Calcium 10 MG TAB PO SCH (20:34)
[2019-07-10] MEDS: Calcium Carbonate 500 MG ChewTAB PO PRN (20:42)
[2019-07-11] MEDS: Levothyroxine Sodium 50 MCG TAB PO SCH (05:38)
[2019-07-11] MEDS: Folic Acid 1 MG TAB PO SCH (08:19)
[2019-07-11] MEDS: Aspirin 81 mg Enteric Coated Tablet PO SCH (08:19)
[2019-07-11] MEDS: Cyanocobalamin (Vitamin B-12) 1,000 MCG TAB PO SCH (08:19)
[2019-07-11] MEDS: Enoxaparin Sodium 40 MG/0.4 ML SYRINGE SC SCH (08:20)
[2019-07-11 13:05] VITALS: BP 118/76; TEMP 97.3
--- NOTE | 2019-07-11 19:11 | DIS ---
DATE OF ADMISSION: 06/27/2019 DATE OF DISCHARGE: 07/11/2019 REASON FOR HOSPITALIZATION: Generalized weakness and fall. SIGNIFICANT FINDINGS: The patient was found to have nausea, vomiting, and abdominal pain, and she was diagnosed with partial bowel obstruction by Dr. Matthews-please see full consultation from 07/03/2019 for details. The patient's bowel obstruction responded to maximum medical therapy including NG tube, IV fluids, and analgesic therapy. Dr. Matthews recommending no further acute inpatient workup or surgical management and recommending the patient was safe for discharge. Please see full consultation, history and physical from internal medicine physician, and all progress notes for details. With maximum medical therapy, the patient improved to her baseline and she was recommended safe for discharge. The patient profoundly weak and having falls, was recommended discharge to nursing home facility. Case management was consulted and discharge planning was underway. The patient was accepted to nursing home facility on 07/11/2019. CONDITION ON DISCHARGE: Stable. SPECIFIC INSTRUCTIONS FOR THE PATIENT/FAMILY: 1. The patient recommended to take all medications as directed, to be re-evaluated by admitting physician. 2. The patient recommended to follow up with primary care physician in the next 5 to 7 days, who will adjust all medications as appropriate. 3. The patient is recommended to follow up with General Surgery in the next 1 to 2 weeks. 4. The patient recommended to follow up with Orthopedic Surgery in the next 2 to 4 weeks. 5. The patient is recommended to follow up with all other specialists as directed. 6. The patient is recommended to return to acute care hospital immediately if signs or symptoms return, worsen, or any other new symptoms occur. DISCHARGE MEDICATIONS: Please see full discharge medication list for details. 1. Tylenol 500 mg one tablet p.o. q.6 hours p.r.n. pain. 2. Amlodipine 5 mg tablet, administer half of one tablet or 2.5 mg p.o. daily. 3. Artificial Tears each eye b.i.d. p.r.n. dry eye. 4. Aspirin 81 mg one tablet p.o. daily. 5. Atorvastatin 10 mg one tablet p.o. at bedtime. 6. Bisacodyl 10 mg rectal suppository daily p.r.n. constipation. 7. Calcium carbonate is 1000 mg one tablet p.o. b.i.d. p.r.n. indigestion. 8. Vitamin B12 one tablet p.o. daily. 9. Flexeril 5 mg one tablet p.o. t.i.d. p.r.n. muscle spasms. 10. Enoxaparin 40 mg subcutaneous injection once daily. 11. Ferrous gluconate one tablet p.o. b.i.d. 12. Folic acid 1 mg one tablet p.o. daily. 13. Ibuprofen 600 mg p.o. q.8 hours p.r.n. pain or fever, must be taken with food or snack. 14. Ipratropium/albuterol sulfate, DuoNeb therapy q.6 hours p.r.n. shortness of breath. 15. Levothyroxine 50 mcg one tablet p.o. q.a.m. 16. Loperamide 2 mg p.o. q.4 hours p.r.n. diarrhea. 17. Omeprazole 40 mg one tablet p.o. q.a.m. 18. Phenytoin 400 mg one tablet p.o. at bedtime. 19. Polyethylene glycol 17 g p.o. daily. 20. Senokot 8.6 mg/50 mg two tablets p.o. b.i.d. 21. VESIcare 5 mg one tablet p.o. daily. Greater than 33 minutes spent coordinating care and discharge process for this patient. Job ID: [id number]
--- NOTE | 2019-07-12 22:49 | PQF ---
KAMAR CERVANTES ERIK [id number] CLINICAL DOCUMENTATION CLARIFICATION FORM: POST DISCHARGE Addendum to original discharge summary date: ____ Late entry note date: __ DATE:07/12/2019 ATTN:WILIAM BURDEN Please exercise your independent, professional judgment in responding to the clarification form. Clinical indicators are provided on the bottom of this form for your review Please check appropriate box(s): kindly clarify the diagnosis occasioning on admission [ XX ] Small bowel obstruction [ ] Urinary tract infection [ ] Rhabdomyolysis [ ] Other diagnosis [ ] Unable to determine In addition, please specify: Present on Admission (POA): [ XX ] Yes [ ] No [ ] Unable to determine For continuity of documentation, please document condition throughout progress notes and discharge summary. Thank You. CLINICAL INDICATORS - SIGNS / SYMPTOMS / LABS Presenting complaint:Fall with weakness-Documented in H&P on 06/26 by Carrie Kumar Patient presented because of worsening low back pain associated with recurrent falls at home-Documented in H&P on 06/26 by Carrie Kumar Urinary tract infection-Documented in H&P on 06/26 by Carrie Kumar Rhabdomyolysis mild-Documented in H&P on 06/26 by Carrie Kumar Urinalysis shows greater than 50 WBC, 21-50 RBCs and 4+ bacteria-Documented in H &P on 06/26 by Carrie Kumar The patient is a 74 y old female who was admitted on the june 26 after a fall.She had some Rhabdomyolysis and UTI.She has been treated and was supposed to go to the [facility]. But she started developing some vomiting and abdominal distention. A CT scan was performed today showing a partial small bowel obstruction-Documented in consultation report on 07/03 by Darion Matthews Jr, MD RISK FACTORS Presenting complaint:Fall with weakness-Documented in H&P on 06/26 by Carrie Kumar Urinary tract infection-Documented in H&P on 06/26 by [address] scan was performed today showing a partial small bowel obstruction- Documented in consultation report on 07/03 Darion Matthews Jr, MD TREATMENTS: We start the patient on antibiotics with levaquin for the UTI-Documented in H&P on 06/26 by Carrie Kumar We will start gentle IV fluids given patient having mild rhabdomyolysis from recent prolonged stay at the floor -Documented in H&P on 06/26 by Carrie Kumar The patient's bowel obstruction responded to maximum medical therapy including NG tube -Documented in Discharge summary on 07/11/2019 by Yazan HOLT [employer] (This form is maintained as a part of the permanent medical record) 2014 [email or web address]. All Rights Reserved Ryan [email or web address] [not provided] MTDD
== END 2019-07-11 14:08 | DRG 389 ==
LOC: ERS 14:07 → T4-A 19:33 → OBSVTOIN 06-27 16:17
PROVIDERS: ADMIT Surgery; ATTEND Internal Medicine
DX: K56.600 Partial intestinal obstruction, unspecified as to cause (principal); N30.00 Acute cystitis without hematuria; M62.82 Rhabdomyolysis; Z88.0 Allergy status to penicillin; Z88.2 Allergy status to sulfonamides; I10 Essential (primary) hypertension; E03.9 Hypothyroidism, unspecified; G40.909 Epilepsy, unspecified, not intractable, without status epilepticus; Z98.890 Other specified postprocedural states; Z66 Do not resuscitate; M54.9 Dorsalgia, unspecified; E78.5 Hyperlipidemia, unspecified; K76.0 Fatty (change of) liver, not elsewhere classified; E53.8 Deficiency of other specified B group vitamins; K59.00 Constipation, unspecified; R53.81 Other malaise; R27.0 Ataxia, unspecified
CPT/HCPCS: 36415; 51701; 70450; 71045; 72131; 74018; 74177; 80048; 80053; 81003; 81015; 82550; 82607; 82746; 83605; 83735; 84443; 84484; 85025; 93005; 94640; 94760; 96361; 96365; 96372; 96375; 96376; A4353; C9113; J0696; J1650; J1885; J2270; J2405; J2765; J3420; J3480; J7620; Q2009

== ENCOUNTER 2019-07-20 12:25 | Emergency (ER) | payer MEDICARE ==
[2019-07-20] MEDS ORDERED: Ketorolac Tromethamine 30 MG/ML VIAL ONE (12:39)
--- NOTE | 2019-07-20 13:09 | RAD ---
ONE VIEW PELVIS: COMPARISON: 11/04/2018. HISTORY: Trauma. Fall. Pain. FINDINGS: Stable right hip prosthesis as well as internal fixation hardware bridging the right acetabulum. Visu alized internal fixation hardware involving the left intertrochanteric region does not demonstrate any perihardware lucency. Visualized bony pelvis and sacrum are unremarkable. Bilateral obturator rings are intact. There is sclerosis involving the distal and upper lumbar spine suggesting vertebroplasty change. IMPRESSION: No definite acute fracture. Transcribed Date/Time: 07/20/2019 1:24 PM
--- NOTE | 2019-07-20 13:15 | RAD ---
Exam:Left hip 2 views HISTORY: Trauma. Pain. COMPARISON: 12/20/2018 FINDINGS: Uncomplicated internal fixation hardware. Acute fracture is not appreciated. IMPRESSION: No fracture. Uncomplicated internal fixation hardware.
== END 2019-07-20 14:30 ==
LOC: ERS 12:25
DX: S70.02XA Contusion of left hip, initial encounter (principal); R56.9 Unspecified convulsions; E03.9 Hypothyroidism, unspecified; K21.9 Gastro-esophageal reflux disease without esophagitis; E78.5 Hyperlipidemia, unspecified; I10 Essential (primary) hypertension; S72.92XD Unspecified fracture of left femur, subsequent encounter for closed fracture with routine healing; Z79.899 Other long term (current) drug therapy
CPT/HCPCS: 72170; 96372; J1885

== ENCOUNTER 2019-08-06 14:37 | Inpatient (IN) | payer MEDICARE ==
[2019-08-06 16:00] LABS: #Basophils 0.1 thou/uL (0.0-0.2); #Eosinphils 0.4 thou/uL (0.0-0.7); #Lymphocytes 2.1 thou/uL (1.20-3.40); #Monocytes 0.8 thou/uL (0.11-0.59); #Neutrophils 4.4 thou/uL (1.40-6.50); %Eosinophils 5.2 % (0.0-10.0); %Lymphocytes 27.2 % (21.0-51.0); %Monocytes 9.7 % (0.0-10.0); %Neutrophils 56.9 % (42.0-75.0); Hemoglobin 14.6 g/dL (12.0-16.0); Mean Corpuscular HGB CONC 31.3 g/dL (32.0-36.0); Mean Corpuscular Hemoglobin 31.2 pg (27.0-31.0); Mean Corpuscular Volume 99.5 fL (78.0-98.0); Mean Platelet Volume 6.6 fL (7.4-10.4); Platelet Count 555 thou/uL (130-400); RBC Distribution Width 12.4 % (11.5-14.5); Red Blood Cell (RBC) Count 4.68 mill/uL (4.20-5.40); White Blood Cell (WBC) Count 7.8 thou/uL (4.8-10.8)
[2019-08-06 16:06] LABS: Bilirubin Negative (Negative); Blood, Urine Moderate (Negative); Glucose, Urine (Dipstick) Negative (Negative); Leukocyte Large (Negative); Nitrite Negative (Negative); Protein, Urine (Dipstick) 30 mg/dL (Neg-Trace); Urobilinogen 0.2 mg/dL (Less than 2)
[2019-08-06 16:25] LABS: ALT (SGPT) 18 U/L (8-55); AST (SGOT) 24 U/L (5-34); Alkaline Phosphatase 397 U/L (40-110); Anion Gap 13 mmol/L (10-20); BUN (Urea Nitrogen) 14 mg/dL (9.8-20.1); Bilirubin, Total 0.4 mg/dL (0.2-1.2); Calc. Creatinine Clearance 0 mL/min (70-130); Calcium 10.3 mg/dL (7.8-10.44); Carbon Dioxide 27 mmol/L (23-31); Chloride 100 mmol/L (98-107); Estimated GFR-MDRD 81; Globulin 3.8 g/dL (2.4-3.5); Glucose 97 mg/dL (83-110); Potassium 4.3 mmol/L (3.5-5.1); Protein, Total 7.8 g/dL (6.0-8.3); Sodium 136 mmol/L (136-145)
[2019-08-06 16:28] LABS: Clarity Turbid (Clear)
[2019-08-06 16:30] LABS: Bacteria/HPF 4+ HPF (None Seen); WBC/HPF Greater than 50 HPF (0-3)
[2019-08-06 16:32] LABS: UA Pathologist Review? Unknown Crystals
[2019-08-06 16:48] LABS: Acetaminophen Less than 6.0 mcg/mL (10.0-30.0); Alcohol Less than 10 mg/dL (Less than 10); Salicylate Less than 8.0 mg/dL (15.0-30.0)
--- NOTE | 2019-08-06 17:06 | CT ---
CT HEAD WITHOUT CONTRAST: 08/06/19 Axial tomograms obtained without IV enhancement. INDICATIONS: Lethargy. Slurred speech. Comparison made to CT head dated 06/26/19. FINDINGS: Mild to moderate cortical atrophy. Moderately severe chronic ischemic white matter changes again note d. No intracranial mass or hemorrhage. No acute cortical infarct identified. Acute lacunar infarcts in the deep white matter may be obscured on this CT and if there is concern of acute lacunar infarct, recommend MRI. IMPRESSION: No acute finding by CT. POS: JAMES
[2019-08-06] MEDS ORDERED: Cefepime 2 GM VIAL ONE (17:12)
[2019-08-06 17:16] LABS: Medtox Reader # READER 1; THC/Cannabinoid Screen Not Detected (NotDetected)
[2019-08-06 17:17] LABS: Amphetamine Not Detected (NotDetected); Barbiturates Screen Detected (NotDetected); Benzodiazepine Screen Not Detected (NotDetected); Cocaine Metabolite Screen Not Detected (NotDetected); Medtox Control Line Valid? VALID (VALID); Methadone Not Detected (NotDetected); Methamphetamine Not Detected (NotDetected); Opiate Screen Not Detected (NotDetected); Oxycodone Screen Not Detected (NotDetected); Phencyclidine (PCP) Not Detected (NotDetected); Tricyclic Screen Not Detected (NotDetected)
--- NOTE | 2019-08-06 18:29 | RAD ---
AP PELVIS: 08/06/19 HISTORY: Left hip pain. COMPARISON: A 07/20/19 exam. The bones are demineralized. A right hip prosthesis is present and postoperative changes of the aceta bulum are seen. A gamma nail and intramedullary brian are seen within the left hip. The pelvis ring its elf is intact. Vertebroplasty changes are seen within the lumbar spine. IMPRESSION: No evidence of acute fracture. POS: [facility]
--- NOTE | 2019-08-06 18:42 | RAD ---
LEFT HIP TWO VIEWS: 08/06/19 HISTORY: Hip pain. COMPARISON: A 07/20/19 study. Postoperative changes of the left hip are noted which appear stable as compared to the prior examinat ion with a gamma nail and intramedullary brian in place. IMPRESSION: Stable postop change. No acute findings. POS: [facility]
--- NOTE | 2019-08-06 19:37 | PDOC.HHP ---
Hospitalist HPI - History of Present Illness Weakness, AMS History of Present Illness: Patient is a 74 year old female with PMH HTN, hypothyroidism, seizure disorder, chronic lower back pain who presented to ED for weakness and altered mental status x 1 day, lethargy began this AM at SNF. She was recently admitted here from 06/27/19 to 07/11/19 for weakness, fall, UTI, rhabdomyolysis and partial small bowel obstruction. She was reported to be AOx 3 that admission. Currently , patient is altered, AOx1, gazing ahead, answers questions but very slowly and innapropriately. After discharge on 07/11/19, patient went to SNF which she has been at since discharge. At SNF, There, patient was noted to be getting lethargic, having altered mental status and was sent to hospital for further care. She was seen by general surgery last admission and was to follow up with general and orthopedic surgery. She was also noted in ED to have swollen L knee , patient denies history of gout, unable to provide any additional history about the knee, the L leg is a bit more edematous than R leg as well. Possible L tibia fx on plain film at [facility]. Patient is globally weak, denies focal numbness or weakness. In ED, patient noted to have UA positive for infectious markers, CT head and plain films pelvis and hip without fracture, patient given cefepime. Last seizure was 2 weeks ago at snf reportedly. She takes dilantin for seizure disorder. On last discharge, dilantin dose 400mg PO daily. This was increased to 400mg BID at SNF for low blood level. blood level here was 35 (normal 10-20) Hospitalist ROS - Review of Systems ROS unobtainable: due to mental status Hospitalist History - Past Medical History Other Medical History: HTN HLD seizure disorder - last episode Jul 2019 CLBP IBS b12 def, hypothyroidism - Past Surgical History Other Surgical History: R hip surgery, tonsillectomy - Family History Family History: reports: no pertinent history - Social History Other Social History: in SNF since June, unable to obtain further social hisotry due to AMS. - Exam General Appearance: NAD General - other findings: AOx1, globally weak, altered mental status Eye: PERRL, anicteric sclera ENT: normocephalic atraumatic, no oropharyngeal lesions, moist mucosa Neck: supple, symmetric, no JVD, no thyromegaly, no lymphadenopathy, no carotid bruit Heart: RRR, no murmur, no gallops, no rubs, normal peripheral pulses Respiratory: CTAB, no wheezes, no rales, no ronchi, normal chest expansion, no tachypnea, normal percussion Gastrointestinal: soft, non-tender, non-distended, normal bowel sounds, no palpable masses, no hepatomegaly, no splenomegaly, no bruit Extremities: no cyanosis, no clubbing, no edema Skin: normal turgor, no lesions, no rashes Neurological: cranial nerve grossly intact, normal sensation to touch, no weakness, no focal deficits, no new deficit Neurological - other findings: global weakness no focal deficits Musculoskeletal: normal tone, normal strength, no muscle wasting Psychiatric: oriented to person Psychiatric - other findings: altered mental status Hospitalist Results - Labs Result Diagrams: 08/06/19 15:50 08/06/19 15:50 Lab results: WBC 7.8 thou/uL (4.8-10.8) 08/06/19 15:50 Hgb 14.6 g/dL (12.0-16.0) 08/06/19 15:50 Hct 46.5 % (36.0-47.0) 08/06/19 15:50 MCV 99.5 fL (78.0-98.0) H 08/06/19 15:50 Plt Count 555 thou/uL (130-400) H 08/06/19 15:50 Neutrophils % 56.9 % (42.0-75.0) 08/06/19 15:50 Sodium 136 mmol/L (136-145) 08/06/19 15:50 Potassium 4.3 mmol/L (3.5-5.1) 08/06/19 15:50 Chloride 100 mmol/L (98-107) 08/06/19 15:50 Carbon Dioxide 27 mmol/L (23-31) 08/06/19 15:50 BUN 14 mg/dL (9.8-20.1) 08/06/19 15:50 Creatinine 0.70 mg/dL (0.6-1.1) 08/06/19 15:50 Glucose 97 mg/dL (83-110) 08/06/19 15:50 Calcium 10.3 mg/dL (7.8-10.44) 08/06/19 15:50 Total Bilirubin 0.4 mg/dL (0.2-1.2) 08/06/19 15:50 AST 24 U/L (5-34) 08/06/19 15:50 ALT 18 U/L (8-55) 08/06/19 15:50 Alkaline Phosphatase 397 U/L (40-110) H 08/06/19 15:50 Troponin I Less than 0.010 ng/mL (< 0.028) 08/06/19 15:50 Serum Total Protein 7.8 g/dL (6.0-8.3) 08/06/19 15:50 Albumin 4.0 g/dL (3.4-4.8) 08/06/19 15:50 Urine Ketones Negative mg/dL (Negative) 08/06/19 15:35 Urine Blood Moderate (Negative) A 08/06/19 15:35 Urine Nitrite Negative (Negative) 08/06/19 15:35 Ur Leukocyte Esterase Large (Negative) H 08/06/19 15:35 Urine RBC 11-20 HPF (0-3) A 08/06/19 15:35 Urine WBC Greater than 50 HPF (0-3) A 08/06/19 15:35 Ur Squamous Epith Cells 4-6 HPF (0-3) A 08/06/19 15:35 Urine Bacteria 4+ HPF (None Seen) A 08/06/19 15:35 - EKG Interpretation EKG: reviewed, NSR [address] changes Hospitalist H&P A/P - Plan Plan: Patient is a 74 year old female with PMH HTN, hypothyroidism, seizure disorder, chronic lower back pain who presented to ED for weakness and altered mental status. # urinary tract infection - received cefepime in ED and was treated with levaquin last admission, last culture March e coli keller sensitive - continue ceftriaxone, follow urine culture # metabolic encephalopathy secondary to UTI/delirium - treat as above # seizure disorder - had a seizure 2 weeks ago, dilantin increased at [facility] now level is too high hold dilantin for now due to high level, seizure precautions # elevated dilantin levels - was on 400mg daily 2 weeks ago, this was increased to 400mg BID at [facility] for low blood level of dilantin, now level is 35 here ( normal is 10-20) - will hold dilantin and recheck level daily, resume at lower dose once therapeutic # thrombocytopenia - perhaps reactive to infection, trend CBC # LLE swelling - report from snf of possible L tibial fracture on plain film, they recommended more imaging. the leg is more swollen, no history of gout, not warm or tender - given abnormal XR at SNF and recent falls/seizures will do CT of L leg r/o fracture and US duplex LLE # history of B12 deficiency - check B12, continue supplements # hypothyroidism - check TSH, continue synthroid # debility - consult PT/OT/case management patient likely needs to go back to SNF on d/c ([place]) # GI ppx - PPI # DVT ppx - lovenox, SCD
[2019-08-06] MEDS ORDERED: Promethazine HCl 12.5 MG in Sodium Chloride 0.9% 50 ML IVPB PRN (20:12)
[2019-08-06] MEDS ORDERED: hydrALAZINE 20 MG/ML VIAL SLOW IVP PRN (20:12)
[2019-08-06] MEDS ORDERED: cloNIDine 0.1 MG TAB PO PRN (20:12)
[2019-08-06] MEDS ORDERED: Ondansetron PF 4 MG/2 ML Vial IVP PRN (20:12)
[2019-08-06] MEDS ORDERED: HYDROcodone/Acetaminophen 5/325 mg Tablet PO PRN (20:13)
[2019-08-06] MEDS ORDERED: Bisacodyl 5 MG TAB PO PRN (20:13)
[2019-08-06] MEDS ORDERED: Senokot S 8.6-50 MG TAB PO PRN (20:13)
[2019-08-06] MEDS ORDERED: Bisacodyl 10 MG SUPP PR PRN (20:13)
--- NOTE | 2019-08-06 21:43 | CT ---
CT OF LEFT TIBIA AND FIBULA PERFORMED WITHOUT CONTRAST ENHANCEMENT: 08/06/19 HISTORY: Left lower extremity pain and swelling. The bones are demineralized. There is a proximal tibial fracture. This fracture has a transversely or iented component through the region of the fused epiphyseal plate. In addition, there is some more co regis obliquely oriented fracture along the anterior margin of the tibia. This component of the fract ure is intra-articular and sagittally oriented component to the fracture which involves the lateral e dge of the tibial plateau of the lateral tibial plateau. There is some joint effusion associated with this. There is a small avulsive injury of the tip of the fibular head. IMPRESSION: Comminuted essentially nondisplaced or minimally displaced fracture. This fracture has is a transvers geovany oriented component through the region of the fused epiphyseal plate and also extends through the anterior margin of the medial and lateral tibial plateau as a very minimally impacted slightly depres sed fracture. The fracture also has a sagittally oriented fracture line along the lateral edge of th e lateral tibial plateau. There is also a small avulsion injury of the fibular head. POS: JAMES
[2019-08-06 22:53] LABS: Troponin I Less than 0.010 ng/mL (< 0.028)
--- NOTE | 2019-08-06 23:25 | ULT ---
Left lower extremity venous duplex exam: HISTORY: Left leg pain and edema. COMPARISON: None. FINDINGS: Real-time color Doppler evaluation left lower extremity was performed from groin to calf. T his includes evaluation, femoral superficial profundofemoral saphenous, popliteal and posterior tibial veins. This shows a patent deep venous system. There is normal compressibility and augmentation. IMPRESSION: No evidence of DVT of the left lower extremity.
[2019-08-06] MEDS: Docusate 100 MG CAP PO SCH (23:30)
[2019-08-06] MEDS: Atorvastatin Calcium 10 MG TAB PO SCH (23:30)
[2019-08-07 04:30] LABS: Hemoglobin 13.8 g/dL (12.0-16.0); Red Blood Cell (RBC) Count 4.29 mill/uL (4.20-5.40); White Blood Cell (WBC) Count 6.9 thou/uL (4.8-10.8)
[2019-08-07 04:31] LABS: #Basophils 0.1 thou/uL (0.0-0.2); #Eosinphils 0.5 thou/uL (0.0-0.7); #Lymphocytes 1.8 thou/uL (1.20-3.40); #Monocytes 0.8 thou/uL (0.11-0.59); #Neutrophils 3.7 thou/uL (1.40-6.50); %Eosinophils 7.2 % (0.0-10.0); %Lymphocytes 26.5 % (21.0-51.0); %Monocytes 11.5 % (0.0-10.0); %Neutrophils 53.8 % (42.0-75.0); Mean Corpuscular HGB CONC 31.9 g/dL (32.0-36.0); Mean Corpuscular Hemoglobin 32.1 pg (27.0-31.0); Platelet Count 436 thou/uL (130-400); RBC Distribution Width 12.4 % (11.5-14.5)
[2019-08-07 04:53] LABS: Anion Gap 13 mmol/L (10-20); BUN (Urea Nitrogen) 14 mg/dL (9.8-20.1); Calc. Creatinine Clearance 0 mL/min (70-130); Calcium 9.6 mg/dL (7.8-10.44); Carbon Dioxide 23 mmol/L (23-31); Chloride 104 mmol/L (98-107); Estimated GFR-MDRD Greater than 90; Glucose 90 mg/dL (83-110); Potassium 4.3 mmol/L (3.5-5.1); Sodium 136 mmol/L (136-145)
[2019-08-07 04:57] LABS: Dilantin 29.5 ug/mL (10.0-20.0)
[2019-08-07 05:18] LABS: Thyroid Stimulating Hormone 1.012 uIU/mL (0.35-4.94)
[2019-08-07] MEDS: Levothyroxine Sodium 50 MCG TAB PO SCH (06:31)
[2019-08-07] MEDS: Polyethylene Glycol 3350 17 GM Packet PO SCH (09:11)
[2019-08-07] MEDS: Enoxaparin Sodium 40 MG/0.4 ML SYRINGE SC SCH (09:12)
[2019-08-07] MEDS: Docusate 100 MG CAP PO SCH ×2 (09:12→21:17)
[2019-08-07] MEDS: Cyanocobalamin (Vitamin B-12) 1,000 MCG TAB PO SCH (09:12)
[2019-08-07] MEDS: Amlodipine 5 MG TAB PO SCH (09:12)
--- NOTE | 2019-08-07 14:40 | PRG ---
DATE OF SERVICE: 08/07/2019 SUBJECTIVE: The patient is seen and examined at the bedside. She is much more awake today, although communication with her is very limited, but she is able to answer my simplest questions like how old she is. OBJECTIVE: VITAL SIGNS: Blood pressure is 150/60, pulse is 103, temperature 97.9, respirations 17, and O2 saturation is 95% on room air. HEENT: Head is atraumatic and normocephalic. Eyes are PERRLA. Sclerae are nonicteric. Oral mucosa is pinkish. NECK: Supple. LUNGS: Clear. HEART: S1 and S2, regular. No S3. No S4. ABDOMEN: Soft, nontender, and nondistended. EXTREMITIES: No clubbing, cyanosis or edema. NEUROLOGICAL: She is trying to follow my simplest commands. Her response is very slow and very limited, but she is able to move her all 4 extremities. LABORATORY DATA: White count of 6.99, hemoglobin 13.8, hematocrit 43.3, and platelet count 436,000. Normal chemistry. Three sets of troponins within normal limits. Vitamin B12 574. Third generation TSH is 1.0120. MICROBIOLOGY: Urine culture is growing presumptive E coli, 75 to 1000 colonies. IMPRESSION: 1. Altered mental status, most likely related to urinary tract infection. 2. Seizure disorder. Apparently, she had seizures 2 weeks ago. Dilantin dose was increased and currently the Dilantin level was supratherapeutic. 3. Thrombocytosis, improved, most likely related to infection. 4. Since her CT of the left tibia and fibula showed a comminuted essentially nondisplaced fracture, we will have Ortho on-call to evaluate the patient, and we will continue antibiotic. Job ID: [id number]
--- NOTE | 2019-08-07 15:28 | RAD ---
EXAM: 3 views of the left knee HISTORY: Left tibial fracture COMPARISON: CT left leg 08/06/2019 FINDINGS: No knee effusion is seen. There is a comminuted fracture of the proximal tibia extending to the tibial spines and to the lateral tibial plateau. No significant degenerative changes are seen. Moderate soft tissue swelling is present. IMPRESSION: Comminuted intra-articular left proximal tibia fracture.
[2019-08-07] MEDS: Atorvastatin Calcium 10 MG TAB PO SCH (21:17)
[2019-08-07] MEDS: cefTRIAXone\\ROCEPHIN 1 GM in Sodium Chloride 0.9% 100 ML IVPB SCH (21:17)
[2019-08-08 04:48] LABS: #Eosinphils 0.3 thou/uL (0.0-0.7); #Lymphocytes 1.6 thou/uL (1.20-3.40); #Monocytes 0.6 thou/uL (0.11-0.59); #Neutrophils 3.2 thou/uL (1.40-6.50); %Basophils 0.1 % (0.0-1.0); %Eosinophils 5.7 % (0.0-10.0); %Lymphocytes 28.2 % (21.0-51.0); %Monocytes 10.5 % (0.0-10.0); %Neutrophils 55.5 % (42.0-75.0); Hemoglobin 13.5 g/dL (12.0-16.0); Mean Corpuscular HGB CONC 32.1 g/dL (32.0-36.0); Mean Corpuscular Volume 99.6 fL (78.0-98.0); Mean Platelet Volume 6.5 fL (7.4-10.4); Platelet Count 478 thou/uL (130-400); RBC Distribution Width 12.3 % (11.5-14.5); Red Blood Cell (RBC) Count 4.22 mill/uL (4.20-5.40); White Blood Cell (WBC) Count 5.8 thou/uL (4.8-10.8)
[2019-08-08 05:25] LABS: Anion Gap 11 mmol/L (10-20); BUN (Urea Nitrogen) 12 mg/dL (9.8-20.1); Calc. Creatinine Clearance 89 mL/min (70-130); Calcium 9.5 mg/dL (7.8-10.44); Carbon Dioxide 27 mmol/L (23-31); Chloride 101 mmol/L (98-107); Dilantin 24.1 ug/mL (10.0-20.0); Estimated GFR-MDRD 83; Glucose 93 mg/dL (83-110); Potassium 4.1 mmol/L (3.5-5.1); Sodium 135 mmol/L (136-145)
[2019-08-08] MEDS: Levothyroxine Sodium 50 MCG TAB PO SCH (06:18)
[2019-08-08] MEDS: Polyethylene Glycol 3350 17 GM Packet PO SCH (09:33)
[2019-08-08] MEDS: Amlodipine 5 MG TAB PO SCH (09:34)
[2019-08-08] MEDS: Enoxaparin Sodium 40 MG/0.4 ML SYRINGE SC SCH (09:34)
[2019-08-08] MEDS: Docusate 100 MG CAP PO SCH ×2 (09:34→23:29)
[2019-08-08] MEDS: Cyanocobalamin (Vitamin B-12) 1,000 MCG TAB PO SCH (09:34)
--- NOTE | 2019-08-08 10:47 | CON ---
DATE OF CONSULTATION: 08/07/2019 REQUESTING PHYSICIAN: Dr. Horn. CONSULTING PHYSICIAN: Hieu Kelly MD REASON FOR CONSULTATION: Left tibia plateau fracture. BRIEF CLINICAL HISTORY: Shirley is a 74-year-old female, who was admitted by the medicine team on August 06, 2019, for lethargy, which was noted at the long-term. She was transferred to [facility] after a preliminary film was obtained noting an acute left tibia fracture. She was then taken for CT examination of the left knee, which demonstrated a tibial plateau fracture, which was bicondylar in nature and slightly depressed. Our service has been consulted for the tibia fracture. Her admitting diagnoses include a urinary tract infection and lethargy, and her Dilantin level was also noted to be elevated. She has a history of seizure disorder. The patient does very little ambulation, essentially from bed to bathroom at the long-term. She has had a history of falls and has had a right total hip arthroplasty as well as what appears to be an open reduction and internal fixation of a hemipelvis and revision arthroplasty on the right and a left trochanteric nail fixation for a hip fracture as well. No history of falls reported, but the patient has had a change in mental status. No details come with the patient regarding how her tibia was fractured and no report is given about either a fall or anything else to lead to this. PHYSICAL EXAMINATION: Visual inspection of the left lower extremity demonstrates that she did have a swelling over the left knee with tenderness. Range of motion is not assessed due to an underlying fracture, but her skin is not broken, I see no significant bruising, no erythema is noted. She is neurovascularly intact in left lower extremity. She has significant left leg length discrepancy with the right leg being significantly shorter than the left. IMAGING STUDIES: No radiographs come with the patient, but a CT examination performed, that demonstrated bicondylar tibial plateau fracture on the left with minimal depression of both medial and lateral fracture. It is intra-articular in nature. IMPRESSION: Left bicondylar tibial plateau fracture with minimal displacement. PLAN: 1. Initial management included long-leg immobilizer. Weightbearing status to be nonweightbearing on the left. 2. Regarding operative management, unable to decide at this point whether or not this would be appropriate for this particular patient. We will see how her lethargy comes along and see what her Dilantin levels do and follow her closely, but at this point, no surgical plans are made, but we will reassess tomorrow. Job ID: [id number]
--- NOTE | 2019-08-08 10:51 | PRG ---
DATE OF SERVICE: 08/08/2019 SUBJECTIVE: Ms. Garcia is seen at the bedside. She is difficult to communicate with. She does seem fairly confused and does not answer questions appropriately. I am seeing her to check her left tibia. She is in a brace. She does not seem to be having pain. She does have a fracture of the left proximal tibia seen on x-ray and CT scan. PHYSICAL EXAMINATION: VITAL SIGNS: Temperature is 97.6, pulse is 93, blood pressure 146/60, respiratory rate is 16. GENERAL: She is alert, lying supine, no apparent distress. HEENT: Normocephalic, atraumatic. RESPIRATORY: Breathing comfortably. ABDOMEN: Soft, nontender, nondistended. MUSCULOSKELETAL: The left leg is in a knee immobilizer. She is able to flex and extend the foot and ankle. She has a palpable pulse. She reports feeling sensation in the foot. She is tender to palpation about the proximal tibia. IMPRESSION: Left tibial plateau fracture in a 74-year-old female who has altered mental status related to urinary tract infection and seizure disorder. PLAN: At this point, the patient is not a good surgical candidate. She remains with altered mental status. We will continue to follow her. I think she likely will need operative treatment of her left tibial plateau fracture. I would like to wait until she is more clear and discuss this with her. We need to keep her nonweightbearing for now and her knee immobilizer. We will continue to follow. Job ID: [id number]
--- NOTE | 2019-08-08 11:44 | PRG ---
DATE OF SERVICE: 08/08/2019 SUBJECTIVE: The patient is more awake today and more alert. She knows that she is in the hospital and she answers few simple questions. She was seen by orthopedic surgeon yesterday. We are waiting for the final reports. OBJECTIVE: VITAL SIGNS: Blood pressure is 146/60, pulse is 93, temperature is 97.6, respirations 16, O2 saturation is 95% on room air. HEENT: Her head is atraumatic and normocephalic. Eyes are PERRLA. Sclerae are nonicteric. Oral mucosa is moist. NECK: Supple. LUNGS: Clear. HEART: S1 and S2, normal. ABDOMEN: Soft, nontender, nondistended. EXTREMITIES: The left lower extremity in the immobilizer. NEUROLOGIC: She answers my simple questions. She is still slow in response. LABORATORY DATA: White count of 5.8, hemoglobin 13.5, hematocrit 42.0, platelet count 478,000. Normal chemistry except for sodium which is 135, mildly low; phenytoin level is 24.1, down from 29.5 yesterday. IMPRESSION: 1. Altered mental status secondary to high Dilantin. The Dilantin level is down and her mental status is improved so far. We are going to follow up closely on that. 2. Seizure disorder. 3. Thrombocytosis. 4. Fracture of the left tibia. 5. Urinary tract infection caused by Escherichia coli almost pansensitive. We will continue her current antibiotic, which is Rocephin. PLAN: Plan is to continue her observation and we will continue checking on her Dilantin level. Orthopedic wants to talk to the patient about possible surgical intervention when her mental condition improves. Job ID: [id number]
[2019-08-08] MEDS: Atorvastatin Calcium 10 MG TAB PO SCH (23:29)
[2019-08-08] MEDS: cefTRIAXone\\ROCEPHIN 1 GM in Sodium Chloride 0.9% 100 ML IVPB SCH (23:29)
[2019-08-09 05:10] LABS: #Eosinphils 0.3 thou/uL (0.0-0.7); #Lymphocytes 1.8 thou/uL (1.20-3.40); #Monocytes 0.6 thou/uL (0.11-0.59); #Neutrophils 3.4 thou/uL (1.40-6.50); %Basophils 0.5 % (0.0-1.0); %Eosinophils 5.5 % (0.0-10.0); %Monocytes 9.7 % (0.0-10.0); %Neutrophils 55.1 % (42.0-75.0); Hemoglobin 13.7 g/dL (12.0-16.0); Mean Corpuscular HGB CONC 31.6 g/dL (32.0-36.0); Mean Corpuscular Hemoglobin 31.8 pg (27.0-31.0); Mean Platelet Volume 6.7 fL (7.4-10.4); Platelet Count 448 thou/uL (130-400); RBC Distribution Width 12.1 % (11.5-14.5); Red Blood Cell (RBC) Count 4.32 mill/uL (4.20-5.40); White Blood Cell (WBC) Count 6.2 thou/uL (4.8-10.8)
[2019-08-09 05:40] LABS: Anion Gap 16 mmol/L (10-20); BUN (Urea Nitrogen) 14 mg/dL (9.8-20.1); Calc. Creatinine Clearance 95 mL/min (70-130); Calcium 9.7 mg/dL (7.8-10.44); Carbon Dioxide 22 mmol/L (23-31); Chloride 101 mmol/L (98-107); Estimated GFR-MDRD 89; Glucose 67 mg/dL (83-110); Potassium 4.2 mmol/L (3.5-5.1); Sodium 135 mmol/L (136-145)
[2019-08-09] MEDS: Levothyroxine Sodium 50 MCG TAB PO SCH (06:49)
[2019-08-09] MEDS ORDERED: Amlodipine 5 MG TAB PO SCH (09:00)
[2019-08-09] MEDS: Docusate 100 MG CAP PO SCH ×2 (10:36→21:08)
[2019-08-09] MEDS: Aspirin 325 MG TAB PO SCH (10:36)
[2019-08-09] MEDS: Cyanocobalamin (Vitamin B-12) 1,000 MCG TAB PO SCH (10:36)
[2019-08-09] MEDS: Polyethylene Glycol 3350 17 GM Packet PO SCH (10:37)
[2019-08-09] MEDS: Enoxaparin Sodium 40 MG/0.4 ML SYRINGE SC SCH ×2 (10:37→10:41)
[2019-08-09] MEDS ORDERED: Clindamycin/D5W 900 MG in Premix Bag 1 BAG IVPB SCH (10:45)
--- NOTE | 2019-08-09 13:42 | PRG ---
DATE OF SERVICE: 08/09/2019 SUBJECTIVE: The patient is seen and examined at the bedside. Her mental condition is significantly improving gradually. She is able to talk to me now, although she is still very slow in response. OBJECTIVE: VITAL SIGNS: Blood pressure is 189/82, pulse is 100, respiratory rate is 16, and O2 saturation is 95% on room air. HEENT: Her head is atraumatic and normocephalic. Sclerae are nonicteric. Pupils are responding to light properly. Conjunctiva is reddish. Oral mucosa is moist. NECK: Supple. LUNGS: Clear. HEART: S1 and S2 normal. No S3. No S4. Slightly tachycardic. ABDOMEN: Soft and nontender. EXTREMITIES: The left lower extremity is in the immobilizer. NEUROLOGICAL: She follows my commands. She is able to speak with simple words. She is still slow in response, but she is able to move her all 4 extremities and gradually her mental condition is improving. LABORATORY DATA: White count 6.2, hemoglobin 13.7, hematocrit 43.4, and platelet count 448,000. Sodium 135, potassium 4.2, chloride 101, CO2 of 22, BUN 14, creatinine 0.65, glucose was 67, and phenytoin today is 18.3. MICROBIOLOGY: Urine culture is growing E coli, pansensitive except for ampicillin. Two blood cultures came back negative. IMPRESSION: 1. Altered mental status secondary to high Dilantin level, improved. Dilantin level is down to 18 today. We will restart her on 200s of Dilantin daily tomorrow. 2. Seizure disorder, stable. 3. Thrombocytosis. 4. Fracture of the left tibia. The patient is supposed to have surgery done tomorrow. 5. Urinary tract infection with Escherichia coli, currently on Rocephin. PLAN: Surgical intervention for left tibia fracture by Ortho tomorrow morning. We will restart her Dilantin tomorrow. I extrapolate her level to be more than 10 by tomorrow morning. Her blood pressure is up and the dose of her amlodipine is doubled to 5 mg daily and I will go up on this dose to twice a day since her blood pressure at 12 o'clock was still 189/82. She will have Ortho Surgery on her left tibia tomorrow morning. Job ID: [id number]
[2019-08-09] MEDS: Amlodipine 5 MG TAB PO SCH (21:08)
[2019-08-09] MEDS: Atorvastatin Calcium 10 MG TAB PO SCH (21:08)
[2019-08-09] MEDS: cefTRIAXone\\ROCEPHIN 1 GM in Sodium Chloride 0.9% 100 ML IVPB SCH (21:08)
[2019-08-10] MEDS: Levothyroxine Sodium 50 MCG TAB PO SCH (05:43)
[2019-08-10] MEDS: Docusate 100 MG CAP PO SCH ×2 (10:01→20:51)
[2019-08-10] MEDS: Enoxaparin Sodium 40 MG/0.4 ML SYRINGE SC SCH (10:02)
[2019-08-10] MEDS: Polyethylene Glycol 3350 17 GM Packet PO SCH (10:02)
[2019-08-10] MEDS: Cyanocobalamin (Vitamin B-12) 1,000 MCG TAB PO SCH (10:03)
[2019-08-10] MEDS: Amlodipine 5 MG TAB PO SCH ×2 (10:09→20:50)
--- NOTE | 2019-08-10 13:27 | PRG ---
DATE OF SERVICE: 08/10/2019 SUBJECTIVE: The patient is seen and examined at the bedside. She is definitely doing better. She is waking up. She is able to talk to me today. She has some complaints about the left knee pain. OBJECTIVE: VITAL SIGNS: Blood pressure is 141/65, pulse is 107, temperature is 97.4, respirations 12, O2 saturation 95% on room air. HEENT: Pupils are responding to light properly. Sclerae are nonicteric. Conjunctivae are reddish. Oral mucosa is moist. NECK: Supple. LUNGS: Clear. HEART: S1 and S2 normal. No S3. No S4. No any murmur. ABDOMEN: Soft, nontender, nondistended. EXTREMITIES: No clubbing, cyanosis, or edema. NEUROLOGIC: She follows my commands. She moves all 4 extremities. There are no any motor deficits. LABORATORY DATA: Labs showed a phenytoin level 12.7. IMPRESSION: 1. Altered mental status secondary to high Dilantin level, now Dilantin level is back to normal range. It is around 12. We are going to restart her Dilantin at 300 mg per day at night. 2. Seizure disorder, stable. 3. Thrombocytosis. 4. Tachycardia of unclear etiology. We will obtain EKG. 5. Fracture of the left tibia, apparently orthopedic surgeon wants to do nonoperative way to treat her left tibia fracture with different kind of immobilizer. 6. Urinary tract infection with Escherichia coli, currently on Rocephin. PLAN: Obtain an EKG. Start Dilantin 300 mg once a day and screen her for SNF for PT and OT. Her blood pressure is significantly improved after the amlodipine dose was doubled yesterday. Job ID: [id number]
[2019-08-10 16:28] LABS: Troponin I 0.039 ng/mL (< 0.028)
[2019-08-10] MEDS: Atorvastatin Calcium 10 MG TAB PO SCH (20:50)
[2019-08-10] MEDS: cefTRIAXone\\ROCEPHIN 1 GM in Sodium Chloride 0.9% 100 ML IVPB SCH (20:51)
[2019-08-11] MEDS: Levothyroxine Sodium 50 MCG TAB PO SCH (06:03)
[2019-08-11] MEDS: Amlodipine 5 MG TAB PO SCH ×2 (09:55→20:57)
[2019-08-11] MEDS: Docusate 100 MG CAP PO SCH ×2 (09:55→20:58)
[2019-08-11] MEDS: Polyethylene Glycol 3350 17 GM Packet PO SCH (09:55)
[2019-08-11] MEDS: Enoxaparin Sodium 40 MG/0.4 ML SYRINGE SC SCH (09:55)
[2019-08-11] MEDS: Cyanocobalamin (Vitamin B-12) 1,000 MCG TAB PO SCH (09:57)
[2019-08-11] MEDS: Acetaminophen 325 MG TAB PO PRN (10:06)
--- NOTE | 2019-08-11 10:27 | PRG ---
DATE OF SERVICE: 08/11/2019 SUBJECTIVE: The patient is seen and examined at the bedside. Her mental function is back to normal, although she still has some problem with memory. Her appetite is fair. She does not remember having any PT. She is very weak. She is not able to sit up by herself. OBJECTIVE: VITAL SIGNS: Blood pressure is 135/55, pulse is 101, temperature is 97.5, respiratory rate is 22, and O2 saturation is 96% on room air. HEENT: Her head is atraumatic and normocephalic. Eyes are PERRLA. Sclerae are nonicteric. Oral mucosa is moist. NECK: Supple. LUNGS: Breath sounds diminished at both bases. HEART: S1 and S2 normal. Slightly tachycardic. There is a systolic murmur 1/6 at the left sternal border mostly audible. ABDOMEN: Soft, nontender, and nondistended. EXTREMITIES: No clubbing, cyanosis, or edema. NEUROLOGIC: She follows my commands. She moves her all 4 extremities. There is generalized weakness in upper and lower extremities and she is not able to sit up by herself, so she is very deconditioned. She spent several days in the bed secondary to encephalopathy caused by high Dilantin level. LABORATORY DATA: Labs showed troponin I 0.039. EKG done yesterday showed sinus tachycardia. No any ischemic changes. On the monitoring, she is running slightly above 100 on and off, then with PT she goes up to 110 or 115. IMPRESSION: 1. Altered mental status, resolved. This was secondary to high Dilantin level. 2. Supratherapeutic level of Dilantin, now the level is back to normal and she is restarted on Dilantin 300 mg per day. 3. Seizure disorder, stable. 4. Sinus tachycardia of unclear etiology. She does not have any hypoxia. She has some pain, which could be causing her tachycardia, especially during physical therapy sessions. There are no any ischemic changes on EKG. One set of troponin I came back indeterminate. We will get another one. 5. Fracture of the left tibia and conservative management recommended per orthopedic surgeon plus Pain Management. 6. Urinary tract infection with Escherichia coli, currently on Rocephin. PLAN: Plan is to continue her pain management. Continue PT. Continue Dilantin 300 mg once a day and the intermediate facility transfer for PT and OT. She is not able to sit up by herself. She is so weak and continue Lovenox and aspirin. Job ID: [id number]
[2019-08-11] MEDS: cefTRIAXone\\ROCEPHIN 1 GM in Sodium Chloride 0.9% 100 ML IVPB SCH (20:57)
[2019-08-11] MEDS: Atorvastatin Calcium 10 MG TAB PO SCH (20:58)
[2019-08-12] MEDS: Levothyroxine Sodium 50 MCG TAB PO SCH (05:23)
[2019-08-12 05:47] LABS: Free T4 (Free Thyroxine) 1.08 ng/dL (0.70-1.48); Thyroid Stimulating Hormone 1.547 uIU/mL (0.35-4.94)
[2019-08-12] MEDS: Aspirin 325 MG TAB PO SCH (08:41)
[2019-08-12] MEDS: Cyanocobalamin (Vitamin B-12) 1,000 MCG TAB PO SCH (08:41)
[2019-08-12] MEDS: Amlodipine 5 MG TAB PO SCH ×2 (08:41→20:11)
[2019-08-12] MEDS: Docusate 100 MG CAP PO SCH ×2 (08:42→20:11)
[2019-08-12] MEDS: Enoxaparin Sodium 40 MG/0.4 ML SYRINGE SC SCH (08:42)
[2019-08-12] MEDS: Polyethylene Glycol 3350 17 GM Packet PO SCH (13:11)
--- NOTE | 2019-08-12 15:47 | PDOC.HOSPP ---
- Subjective Encounter Date: 08/12/19 Encounter Time: 15:30 Subjective: f/u for encephalopathy due to Dilantin toxicity and UTI on Rocephin. Feels better overall. Worked with PT due to deconditioning and L tibial plateau fx in knee immobilizer. - Objective Vital Signs & Weight: Vital Signs (12 hours) Temp Pulse Resp BP BP Pulse Ox 08/12/19 11:49 97.8 F 97 16 140/64 98 08/12/19 08:00 97.8 F 97 16 136/54 L 96 08/12/19 04:00 97.8 F 108 H 16 141/56 H 96 Weight Weight 180 lb I&O: 08/11/19 08/12/19 08/13/19 06:59 06:59 06:59 Intake Total 760 1310 Output Total 550 1500 Balance 210 -190 Result Diagrams: 08/09/19 04:48 08/09/19 04:48 Additional Labs: Microbiology 08/06/19 17:28 Venous blood - Left Hand Blood Culture - Final NO GROWTH IN 5 DAYS 08/06/19 17:16 Venous blood - Right Arm Blood Culture - Final NO GROWTH IN 5 DAYS 08/06/19 15:35 Urine Straight Catheter Urine Culture - Final Escherichia coli Laboratory Tests 08/12/19 04:44 Free T4 1.08 Free T3 3.09 TSH 3rd Generation [id number] Hospitalist ROS - Medication Medications: Active Medications Generic Name Dose Route Start Last Admin Trade Name Freq PRN Reason Stop Dose Admin Acetaminophen 650 mg 08/06/19 20:13 08/11/19 10:06 Tylenol PO 650 mg Q4H PRN Administration Headache/Fever/Mild Pain (1-3) Amlodipine Besylate 5 mg 08/09/19 21:00 08/12/19 08:41 Norvasc PO 5 mg BID CARMELO Administration Aspirin 325 mg 08/09/19 09:00 08/12/19 08:41 Aspirin PO 325 mg DAILY CARMELO Administration Atorvastatin Calcium 10 mg 08/06/19 21:00 08/11/19 20:58 Lipitor PO 10 mg HS CARMELO Administration Cyanocobalamin 1,000 mcg 08/07/19 09:00 08/12/19 08:41 Vitamin B-12 PO 1,000 mcg DAILY CARMELO Administration Docusate Sodium 100 mg 08/06/19 21:00 02/03/20 08:42 Colace PO 100 mg BID CARMELO Administration Enoxaparin Sodium 40 mg 08/07/19 09:00 08/12/19 08:42 Lovenox SC 40 mg 0900 CARMELO Administration Hydralazine HCl 10 mg 08/06/19 20:12 08/09/19 12:29 Apresoline SLOW IVP 10 mg Q6H PRN Administration SBP GREATER THAN 160 Ceftriaxone Sodium 1 gm/ 100 mls @ 200 mls/hr 08/07/19 21:00 08/11/19 20:57 Sodium Chloride IVPB 08/12/19 21:29 100 mls Q24HR CARMELO Administration Levothyroxine Sodium 50 mcg 08/07/19 06:00 08/12/19 05:23 Synthroid PO 50 mcg 0600 CARMELO Administration Pantoprazole Sodium 40 mg 08/07/19 09:00 08/12/19 08:42 Protonix PO 40 mg DAILY CARMELO Administration Phenytoin Sodium 300 mg 08/11/19 09:00 08/12/19 08:42 Dilantin PO 300 mg DAILY CARMELO Administration Polyethylene Glycol 17 gm 08/07/19 09:00 08/12/19 13:11 Miralax PO Not Given DAILY CARMELO Sodium Chloride 10 ml 08/09/19 09:00 08/11/19 21:05 Flush - Normal Saline IVF 10 ml Q12HR CARMELO Administration - Exam General Appearance: NAD, awake alert Eye: PERRL, anicteric sclera ENT: normocephalic atraumatic, no oropharyngeal lesions Neck: supple, symmetric, no JVD, no thyromegaly Heart: RRR, no murmur, no gallops, no rubs, normal peripheral pulses Respiratory: CTAB, no wheezes, no rales, no ronchi, normal chest expansion Gastrointestinal: soft, non-tender, non-distended, normal bowel sounds, no palpable masses Extremities: no cyanosis Extremities - other findings: L knee immobilizer in place, mild edema peripatellar region Skin: normal turgor, no lesions Neurological: cranial nerve grossly intact, no new deficit Musculoskeletal: normal tone, generalized weakness Psychiatric: A&O x 3 Hosp A/P (1) Acute metabolic encephalopathy Code(s): G93.41 - METABOLIC ENCEPHALOPATHY Status: Acute Plan: Improved, likely due to Dilantin toxicity (2) Dilantin toxicity Code(s): T42.0X1A - POISONING BY HYDANTOIN DERIVATIVES, ACCIDENTAL, INIT Status: Acute Plan: Resolving, serial monitoring Dilantin levels (3) E. coli UTI Code(s): N39.0 - URINARY TRACT INFECTION, SITE NOT SPECIFIED; B96.20 - UNSP ESCHERICHIA COLI THE CAUSE OF DISEASES CLASSD ELSWHR Status: Acute Plan: Continue Rocephin (4) Tibial plateau fracture, left Code(s): S82.142A - DISPLACED BICONDYLAR FRACTURE OF LEFT TIBIA, INIT Status: Acute Plan: L knee immobilizer, pain control, PT for mobilization, fall risk precautions - Plan continue antibiotics, PT/OT, social secretary, out of bed/ambulate Stable currently Continue Rocephin another 24h CM for SNF options Pain control as tolerated Likely d/c in 24h
[2019-08-12] MEDS: cefTRIAXone\\ROCEPHIN 1 GM in Sodium Chloride 0.9% 100 ML IVPB SCH (20:10)
[2019-08-12] MEDS: Atorvastatin Calcium 10 MG TAB PO SCH (20:11)
[2019-08-13] MEDS: Levothyroxine Sodium 50 MCG TAB PO SCH (04:59)
[2019-08-13] MEDS: Acetaminophen 325 MG TAB PO PRN (04:59)
[2019-08-13] MEDS: Enoxaparin Sodium 40 MG/0.4 ML SYRINGE SC SCH (08:46)
[2019-08-13] MEDS: Aspirin 325 MG TAB PO SCH (08:47)
[2019-08-13] MEDS: Polyethylene Glycol 3350 17 GM Packet PO SCH (08:47)
[2019-08-13] MEDS: Docusate 100 MG CAP PO SCH (08:48)
[2019-08-13] MEDS: Amlodipine 5 MG TAB PO SCH (08:48)
[2019-08-13] MEDS: Cyanocobalamin (Vitamin B-12) 1,000 MCG TAB PO SCH (08:48)
[2019-08-13 12:01] VITALS: BP 145/85; TEMP 97.8
--- NOTE | 2019-08-13 21:05 | EKG ---
Test Reason : Blood Pressure : / mmHG Vent. Rate : 111 BPM Atrial Rate : 111 BPM P-R Int : 168 ms QRS Dur : 076 ms QT Int : 344 ms P-R-T Axes : 041 016 -06 degrees QTc Int : 467 ms Sinus tachycardia Otherwise normal ECG Confirmed by Susie BUSTOS ([id number]) on 08/13/2019 9:05:41 PM Referred By: RANCHO Confirmed By:Susie BUSTOS
--- NOTE | 2019-08-14 11:34 | DIS ---
DATE OF ADMISSION: 08/07/2019 DATE OF DISCHARGE: 08/13/2019 DISCHARGE DIAGNOSES: 1. Acute metabolic toxic encephalopathy secondary to Dilantin toxicity, resolved. 2. Dilantin toxicity, resolved. 3. Escherichia coli urinary tract infection, resolved. 4. Left tibial plateau fracture, non-operative management, status post mechanical fall, stable. CONSULTATIONS: Dr. Kelly with Orthopedic Surgery Service. PERTINENT LABORATORY AND X-RAY FINDINGS: Alkaline phosphatase 397. Troponin I negative x3. Vitamin B12 level 574. TSH is 1.01. Free T3 level 3.09. Free T4 level 1.08. Dilantin level ranged between 12.7 to 34.9. Urine culture dated 08/06/2019, showed 75,000 to 100,000 colonies of E coli species, pansensitive except for ampicillin. Blood cultures x2, dated 08/06/2019, showed no growth at [address] of the left lower extremity dated 08/06/2019, showed a comminuted nondisplaced fracture of the left tibial plateau. A small avulsion injury of the fibular head. CT of the brain without contrast dated 08/06/2019, showed moderate to severe chronic ischemic white matter changes. No acute process identified. Two views of the left hip dated 08/06/2019, showed no acute fracture dislocation. Pelvic radiographs dated 08/06/2019, showed no acute fracture. Left lower extremity venous Doppler study dated 08/06/2019, showed no evidence for DVT. Three views of the left knee dated 08/07/2019, showed comminuted intra-articular left proximal tibia fracture. HOSPITAL COURSE: The patient was admitted to the Stroke Unit after initially presenting with altered mental status and generalized weakness with recent fall and left tibial plateau fracture. The patient underwent extensive evaluation with initial diagnosis of Dilantin toxicity with elevated Dilantin level as stated previously. The patient was also diagnosed with urinary tract infection with Escherichia coli species isolated on culture, treated with IV Rocephin throughout the hospital course. The patient was noted with acute delirium, likely metabolic in nature and related to Dilantin toxicity. The patient received IV fluids and general supportive management with overall resolution of the toxicity with supportive management. The patient was resumed on Dilantin at 300 mg daily from previous 400 mg daily. The patient was evaluated for left lower extremity swelling and pain with a left tibial plateau fracture noted. The patient was placed in a long-leg knee immobilizer without recommendations for acute surgical intervention. The patient will be nonweightbearing status and follow up with Orthopedic Surgery on an outpatient basis for further evaluation. The patient remained clinically stable during the hospital course and tolerated regular oral intake. Overall mental status improved and returned to baseline levels with general supportive management and resolution of Dilantin toxicity. The patient was deemed appropriate candidate for ongoing continuation of fci care and will return to [facility] on 08/13/2019. I have examined the patient at the time of discharge and discussed followup instructions. The patient verbalized understanding and agreement, ready for discharge on 08/13/2019. DISCHARGE MEDICATIONS: 1. Amlodipine 2.5 mg p.o. daily. 2. Lipitor 10 mg p.o. at bedtime. 3. Ferrous gluconate 324 mg p.o. b.i.d. 4. Ibuprofen 600 mg p.o. q.8 hours p.r.n. pain. 5. Levothyroxine 50 mcg p.o. daily. 6. Omeprazole 20 mg p.o. daily. 7. Ditropan XL 5 mg p.o. daily. 8. Tramadol 50 mg p.o. q.8 hours p.r.n. pain. 9. Enteric-coated aspirin 81 mg p.o. daily. 10. Dulcolax suppositories 10 mg per rectum daily p.r.n. 11. Vitamin B12 1000 mcg p.o. daily. 12. Lovenox 40 mg subcutaneously daily. 13. Folic acid 1 mg p.o. daily. 14. DuoNeb 3 mL nebulized q.6 hours p.r.n. 15. Dilantin 300 mg p.o. daily. 16. MiraLAX 17 g p.o. daily. FOLLOWUP: The patient may follow up with Dr. Rosy Gallardo within 7 days of discharge. The patient will follow up with Dr. Hieu Kelly with Orthopedic Surgery Service and to call his office for appointment time and date. CONDITION ON DISCHARGE: Stable. ACTIVITY: Ad-maritza. Nonweightbearing on left lower extremity per orthopedic surgery recommendations. DIET: Heart healthy. CODE STATUS: Do not attempt resuscitation. DISPOSITION: Discharged to [facility] on 08/13/2019. TIME SPENT: Total time preparing and coordinating discharge, 32 minutes. Job ID: [id number]
--- NOTE | 2019-08-15 06:16 | PQF ---
[employer] Salesperson [employer] Win[employer] ViewerKAMAR CERVANTES ISABEL PEREZ DO [id number] [address] [place] [address] [id number] CLINICAL DOCUMENTATION CLARIFICATION FORM: POST DISCHARGE Addendum to original discharge summary date: ____ Late entry note date: __ DATE: 08/15/2019 ATTN: ISABEL PEREZ DO Please exercise your independent, professional judgment in responding to the clarification form. Clinical indicators are provided on the bottom of this form for your review Please check appropriate box(es): [ ] Sepsis [ ] Severe sepsis [ ] Septic Shock [ x ] Localized infection without sepsis [ ] Other diagnosis [ ] Unable to determine In addition, please specify: Present on Admission (POA): [ ] Yes [ x ] No [ ] Unable to determine For continuity of documentation, please document condition throughout progress notes and discharge summary. Thank You. CLINICAL INDICATORS - SIGNS / SYMPTOMS / LABS AMS - Documented in H&P on 08/06 by Brenda Simon Pulse rate 112 on 08/09 , 107 on 08/10 and 108 on 08/12 - Documented in Vital Signs Respiration rate 22 on 08/11 - Documented in Vital Signs Blood pressure 126/50 on 08/10 and 135/55 on 08/11 - Documented in Vital Signs UTI with E.coli - Documented in DS on 08/13 by ISABEL PEREZ DO [employer] Sepsis - Documented in Admit order Acute metabolic toxic encephalopathy - Documented in DS on 08/13 by ISABEL PEREZ DO TREATMENTS: Received cefepime in ED - Documented in H&P on 08/06 by Brenda Simon Cefepime 2gm - Documented in Medication report [employer] Salesperson [id number]. All Rights Reserved [email or web address] [phone] (This form is maintained as a part of the permanent medical record) [facility]
== END 2019-08-13 14:21 | DRG 562 ==
LOC: ERS 14:37 → ERHOLD 17:32 → 2SE 22:06 → OBSVTOIN 08-07 06:20
PROVIDERS: ADMIT Emergency Medicine; ATTEND Internal Medicine
DX: S82.142A Displaced bicondylar fracture of left tibia, initial encounter for closed fracture (principal); G92 Toxic encephalopathy; N39.0 Urinary tract infection, site not specified; Z98.890 Other specified postprocedural states; I10 Essential (primary) hypertension; E03.9 Hypothyroidism, unspecified; G40.909 Epilepsy, unspecified, not intractable, without status epilepticus; M54.5 Low back pain; G89.29 Other chronic pain; E78.5 Hyperlipidemia, unspecified; D69.6 Thrombocytopenia, unspecified; B96.20 Unspecified Escherichia coli [E. coli] as the cause of diseases classified elsewhere; W18.30XA Fall on same level, unspecified, initial encounter; T42.0X5A Adverse effect of hydantoin derivatives, initial encounter; Z90.89 Acquired absence of other organs; R40.2362 Coma scale, best motor response, obeys commands, at arrival to emergency department; R40.2252 Coma scale, best verbal response, oriented, at arrival to emergency department; R40.2142 Coma scale, eyes open, spontaneous, at arrival to emergency department
CPT/HCPCS: 36415; 51701; 70450; 72170; 80048; 80053; 80185; 80306; 80307; 80500; 81003; 81015; 82607; 83735; 84439; 84443; 84481; 84484; 85025; 87040; 87077; 87086; 87186; 93005; 93010; 96365; A4353; J0360; J0692; J0696; J1650; J3490

== ENCOUNTER 2020-01-20 13:30 | Inpatient (IN) | payer MEDICARE ==
[~2020-01-20 13:30] MED LIST: Iopamidol-370 76% 500 ML 1 ML ONE
[2020-01-20 14:21] LABS: Bilirubin Negative (Negative); Blood, Urine Negative (Negative); Clarity Clear (Clear); Glucose, Urine (Dipstick) Normal (Negative); Ketone, Urine Negative (Negative); Leukocyte 250 Leu/uL (Negative); Nitrite Negative (Negative); Protein, Urine (Dipstick) 10 mg/dL (Neg-Trace); Specific Gravity, Urine 1.025 (1.002-1.036); Squamous Epithelial 0-3 HPF (0-3); Urobilinogen Normal mg/dL (Less than 2); WBC/HPF 21-50 HPF (0-3); pH, Urine 5.5 (5.0-9.0)
[2020-01-20 14:23] LABS: Bacteria/HPF 1+ HPF (None Seen)
[2020-01-20 14:28] LABS: #Eosinphils 0.2 thou/uL (0.0-0.7); #Lymphocytes 1.8 thou/uL (1.20-3.40); #Monocytes 0.6 thou/uL (0.11-0.59); #Neutrophils 3.5 thou/uL (1.40-6.50); %Basophils 0.6 % (0.0-1.0); %Eosinophils 3.2 % (0.0-10.0); %Lymphocytes 29.4 % (21.0-51.0); %Monocytes 9.3 % (0.0-10.0); %Neutrophils 57.6 % (42.0-75.0); Hemoglobin 16.7 g/dL (12.0-16.0); Mean Corpuscular HGB CONC 32.9 g/dL (32.0-36.0); Mean Corpuscular Hemoglobin 32.4 pg (27.0-31.0); Mean Corpuscular Volume 98.7 fL (78.0-98.0); Platelet Count 298 thou/uL (130-400); RBC Distribution Width 11.8 % (11.5-14.5); Red Blood Cell (RBC) Count 5.14 mill/uL (4.20-5.40); White Blood Cell (WBC) Count 6.2 thou/uL (4.8-10.8)
[2020-01-20 14:37] LABS: ALT (SGPT) 24 U/L (8-55); AST (SGOT) 37 U/L (5-34); Albumin 3.8 g/dL (3.4-4.8); Alkaline Phosphatase 250 U/L (40-110); Anion Gap 14 mmol/L (10-20); BUN (Urea Nitrogen) 11 mg/dL (9.8-20.1); Bilirubin, Total 0.4 mg/dL (0.2-1.2); Calc. Creatinine Clearance 0 mL/min (70-130); Calcium 10.3 mg/dL (7.8-10.44); Carbon Dioxide 24 mmol/L (23-31); Chloride 103 mmol/L (98-107); Estimated GFR-MDRD 81; Globulin 3.5 g/dL (2.4-3.5); Glucose 93 mg/dL (83-110); Potassium 4.4 mmol/L (3.5-5.1); Protein, Total 7.3 g/dL (6.0-8.3); Sodium 137 mmol/L (136-145)
--- NOTE | 2020-01-20 15:45 | RAD ---
EXAM: Single view of the chest HISTORY: Altered mental status COMPARISON: 06/26/2019 FINDINGS: Single view of the chest shows a normal sized cardiomediastinal silhouette. There is no peng dence of consolidation, mass, or pleural effusion. Degenerative changes are seen in the spine. IMPRESSION: No evidence of acute cardiopulmonary disease
[2020-01-20] MEDS ORDERED: levETIRAcetam 500 MG/100 ML PREMIX BAG ONE (16:03)
[2020-01-20] MEDS ORDERED: Lorazepam 2 MG/ML VIAL ONE (16:08)
--- NOTE | 2020-01-20 16:14 | CT ---
EXAM: CT ANGIOGRAM OF THE HEAD AND NECK INDICATION: Stroke COMPARISON: None TECHNIQUE: CT angiogram of the head and neck are performed in the axial plane. Three-dimensional refo rmatted images are submitted for interpretation. FINDINGS: NONCONTRAST HEAD CT: No parenchymal hemorrhage. No extra-axial hematoma. No midline shift. Basilar cisterns are patent. Age-appropriate brain volume. Cortical cordova-white matter differentiation preserved. No hydrocephalus. Remote lacunar infarct involving the right caudate nucleus. White matter hypodensities due to chronic small vessel ischemic change. Intact calvarium. Adequate aeration of the sinuses and mastoid air cells. CTA OF THE HEAD WITH AND WITHOUT CONTRAST: POSTCONTRAST CT OF BRAIN: Pathologic enhancement: No pathologic enhancement the brain. Postcontrast soft tissue neck CT: Aerodigestive tract:Aerodigestive tract is patent. No mucosal abnormality.. Limited evaluation the or al cavity due to dental amalgam artifact. Midline fatty raphae of the tongue appears to be preserved. Epiglottis has a normal caliber. Preepiglottic fat is preserved. Sinuses: Adequate aeration. Orbits: Bilateral ocular lenses are appropriately located. Both globes are intact. Retrobulbar fat is preserved. Symmetric attenuation the optic nerves and ocular rectus muscles. Salivary glands:Symmetric attenuation Thyroid gland: Appropriate attenuation Lymph nodes: No evidence of lymphadenopathy by size criteria. Paraspinal muscles: Symmetric attenuation of the sternocleidomastoid muscles. Appropriate attenuation of the paraspinal muscles. Cervical spine:Varying degrees of central canal stenosis and neural foraminal narrowing on the basis of degenerative change. Technique limits evaluation. Vertebral body heights are maintained. There is no fracture. Upper mediastinum and lung apices: No acute abnormality. Presumed chronic changes in the visualized l tsering parenchyma CTA OF THE NECK WITH CONTRAST: Aorta: Appropriate enhancement and luminal diameter of the visualized aorta Right carotid artery: Appropriate enhancement and luminal diameter of the origin of the right carotid artery, innominate artery, common carotid artery, carotid bifurcation and internal carotid artery. There is calcified and noncalcified plaque involving the carotid bifurcation and proximal internal ca rotid artery. No evidence of significant stenosis based upon NASCET criteria Left carotid: Appropriate enhancement and luminal diameter of the origin of the left carotid artery, common carotid artery, carotid bifurcation and internal carotid artery. No significant stenosis based upon NASCET criteria Subclavian arteries:Patent and symmetric Vertebral arteries:Patent throughout their course in the neck. Right vertebral artery is dominant CTA OF THE BRAIN: Intracranial internal carotid arteries:Appropriate enhancement and luminal diameter. Atherosclerosis without significant narrowing involving both cavernous and paraclinoid segments Anterior circulation: Appropriate enhancement and luminal diameter of the A1 segments, M1 segments, p roximal MCA branches and proximal A2 segments Intracranial vertebral arteries: Appropriate enhancement and luminal diameter. Limited evaluation of bilateral PICA artery origins Posterior circulation: Both vertebral arteries supply normal caliber basilar artery. Bilateral P1 seg ments have appropriate enhancement and luminal diameter. IMPRESSION: 1. Scattered atherosclerotic disease without hemodynamically significant stenosis based upon NASCET c tricia. 2. Additional findings as above. Transcribed Date/Time: 01/20/2020 4:33 PM
--- NOTE | 2020-01-20 17:15 | PDOC.EVN ---
Event Note - Event Note Event Note: Seen and evaluated. Plan discussed and documentation reviewed with Dr. Ramirez/ Ra. patient sent from [facility] / AMS. Hx seizure disorder with recently supratherapeutic dilantin level. Had been held by NH provider. Was altered on rounds per report and sent to ER. In ER had seizure and loaded with keppra and given ativan. currently somnolent and minimally responsive but appears to be protecting her airway. Exam otherwise unremarkable. Labs show subtherapeutic level of dilantin. Mild concentration of H&H. othewise unremarkable. EKG mild sinus tachy. CXR neg. CTA Head and Neck show mild atherosclerotic disease. Admit for seizure and post itcal state. Loaded with keppra. Will consult neurology in the morning. Monitor mentation overnight and will avoid sedative. NPO until she can pass bed side swallow study. Inpatient, medical, >2 midnights.
--- NOTE | 2020-01-20 17:31 | PDOC.FPRHP ---
- History of Present Illness Chief Complaint: AMS History of Present Illness: 74 y/o F with PMHx seizure disorder, HTN brought to ED from [facility] for AMS. Around 0700, pt was noticed to be less responsive and not talkative which is unusual for her. Per telephone conversation with patient's daughter, she takes dilantin for seizure, but it has been held for the past week due to supra-therapeutic levels. She has also been treated for a UTI with keflex over the past several days. No additional history about this morning's altered mental status is provided by the fci or the patient's daughter. Due to mental status, patient is unable to provide any additional history. ED course today significant for a witnessed seizure for less than 5 minutes, treated with 1g Keppra. ED Course: Meds: 1g Keppra, 750mg Levaquin, 1L NS bolus, ativan Imaging: CT head no acute bleed - Allergies/Adverse Reactions Allergies Allergy/AdvReac Type Severity Reaction Status Date / Time Penicillins Allergy Rash Verified 08/06/19 22:25 Sulfa (Sulfonamide Allergy Rash Verified 08/06/19 22:25 Antibiotics) - Home Medications Medication Instructions Recorded Confirmed Type Atorvastatin Calcium 10 mg PO HS 12/21/15 01/21/20 History Levothyroxine Sodium 50 mcg PO QAM 12/21/15 01/21/20 History Amlodipine Besylate [amLODIPine 2.5 mg PO DAILY 04/13/16 01/21/20 History Besylate] Ferrous Gluconate [Fergon] 324 mg PO BID 04/13/16 01/21/20 History Calcium Carbonate [Calcium Antacid] 1,000 mg PO BID 11/11/18 01/21/20 History Folic Acid [Folvite] 1 mg PO DAILY #30 tab 07/01/19 01/21/20 Rx Acetaminophen [Tylenol Regular 650 mg PO Q4H PRN tab 07/11/19 01/21/20 Rx Strength] Artificial Tears [Tears Naturale 2 drop EA EYE PRN PRN each 07/11/19 01/21/20 Rx Free] Aspirin [Ecotrin Low Strength] 81 mg PO DAILY tab 07/11/19 01/21/20 Rx Omeprazole 20 mg PO DAILY 08/07/19 01/21/20 History Oxybutynin ER [Ditropan XL] 5 mg PO DAILY 08/07/19 01/21/20 History traMADol HCl [Tramadol HCl] 50 mg PO Q8HR PRN 08/07/19 01/21/20 History Cephalexin 500 mg PO Q12H 01/21/20 01/21/20 History Mecobalamin [B12 Active] 1,000 mcg PO DAILY 01/21/20 01/21/20 History Phenytoin Sodium Extended 400 mg PO DAILY 01/21/20 01/21/20 History [Dilantin ER] - History PMHx: seizure disorder, hypertension, hypothyroid PSHx: R hip surgery, tonsillectomy FHx: not available Social: unable to assess due to AMS - Review of Systems ROS unobtainable: due to mental status - Vital signs BP: 154/64 HR: 108 RR: 20 Tmax: 98.7F Pox: 99% on RA Wt: 71.2kg - Physical Exam Constitutional: other (Minimally responsive, appears post-ictal.) HEENT: normocephalic and atraumatic, PERRLA, no scleral icterus, MMM -HEENT: oropharyngeal trumpet in place Neck: no LAD Heart: RRR -Heart: Tachycardia, Regular rhythm. 2/6 systolic murmur. 1+ pitting edema bilateral LE to mid noel. Lungs: CTAB, no respiratory distress Abdomen: soft, non-tender, bowel sounds present, no masses/distention -Musculoskeletal: No gross deformity or trauma -Neurological: GCS: 6. No eye opening, no verbal response, withdraws from pain. Skin: no rash/lesions, no jaundice Heme/Lymphatic: no LAD -Psychiatric: unable to assess due to mental status FMR H&P: Results - Labs Result Diagrams: 01/21/20 03:51 01/21/20 03:51 Lab results: WBC 6.2 thou/uL (4.8-10.8) 01/20/20 14:03 Hgb 16.7 g/dL (12.0-16.0) H 01/20/20 14:03 Hct 50.8 % (36.0-47.0) H 01/20/20 14:03 MCV 98.7 fL (78.0-98.0) H 01/20/20 14:03 Plt Count 298 thou/uL (130-400) 01/20/20 14:03 Neutrophils % 57.6 % (42.0-75.0) 01/20/20 14:03 Sodium 137 mmol/L (136-145) 01/20/20 14:03 Potassium 4.4 mmol/L (3.5-5.1) 01/20/20 14:03 Chloride 103 mmol/L (98-107) 01/20/20 14:03 Carbon Dioxide 24 mmol/L (23-31) 01/20/20 14:03 BUN 11 mg/dL (9.8-20.1) 01/20/20 14:03 Creatinine 0.70 mg/dL (0.6-1.1) 01/20/20 14:03 Glucose 93 mg/dL (83-110) 01/20/20 14:03 Calcium 10.3 mg/dL (7.8-10.44) 01/20/20 14:03 Total Bilirubin 0.4 mg/dL (0.2-1.2) 01/20/20 14:03 AST 37 U/L (5-34) H 01/20/20 14:03 ALT 24 U/L (8-55) 01/20/20 14:03 Alkaline Phosphatase 250 U/L (40-110) H 01/20/20 14:03 Serum Total Protein 7.3 g/dL (6.0-8.3) 01/20/20 14:03 Albumin 3.8 g/dL (3.4-4.8) 01/20/20 14:03 Urine Ketones Negative mg/dL (Negative) 01/20/20 13:54 Urine Blood Negative (Negative) 01/20/20 13:54 Urine Nitrite Negative (Negative) 01/20/20 13:54 Ur Leukocyte Esterase 250 Ryann/uL (Negative) A 01/20/20 13:54 Urine RBC 4-6 HPF (0-3) A 01/20/20 13:54 Urine WBC 21-50 HPF (0-3) A 01/20/20 13:54 Ur Squamous Epith Cells 0-3 HPF (0-3) 01/20/20 13:54 Urine Bacteria 1+ HPF (None Seen) A 01/20/20 13:54 - EKG Interpretation EKG: initial EKG: sinus tachycardia, no acute ST segment changes FMR H&P: A/P - Plan Altered Mental Status Most likely post-ictal state vs less likely delirium or stroke/TIA. CT head negative for acute bleed. - seizure precautions - NPO, bedside swallow pending - q4h neuro checks - repeat NIH scale when able to participate Seizure Disorder Seizure in ED. Most likely due to sub-therapeutic levels after holding dilantin in outpatient setting. Loaded with 1g Keppra in ED, currently post-ictal/minimally responsive. - will hold any further seizure prevention medications until patient is responsive - will likely continue keppra, hold dilantin when restarting seizure control therapy - lorazepam PRN for any seizures tonight - Neuro consulted in ED, appreciate recs UTI Failed outpatient therapy with keflex. 750mg Levaquin in ED. Allergies to PCN, sulfa drugs. Does not meet SIRS criteria. - continue levaquin 750mg for complicated UTI 2/2 failed outpatient therapy - f/u urine cx results from [place], adjust abx as appropriate Hypothyroid -Aware, hold home synthroid while NPO Hypertension Mildly hypertensive in the setting of seizure. - continue to monitor vitals - will hold home meds while NPO Hyperlipidemia - Aware, hold home statin while NPO - f/u lipid panel for stroke/TIA risk stratification Diet: NPO IVF: LR 100ml/hr Ppx: lovenox Code: Full PCP: Iesha Attending: Vincenzo Dispo: Admit to stroke, expected LOS >2 midnights. FMR H&P: Upper Level - Plan Date/Time: 01/20/20 7491 IWes DO, have evaluated this patient and agree with findings/plan as outlined by wireless internet installer resident. Pertinent changes/additions are listed here. 74 yo F w/ pmhx sig for unspecified seizure disorder Post ictal on my exam, GCS 8, protecting airway. Hx obtained from PCP, Dr. Julian. 1.5wks ago pt had routine labs w/ supratherapeutic dilantin levels. Held at that time, 4-5 days ago pt complaining of dysuria, mildly altered mental status. Started on kelfex. Today she was found minimally responsive in her bed, ems was called. In ED she received 1L NS, during her CTA (normal) she had a seizure, terminated with 1g keppra. Dilantin level found to be 7. Her other labs were wnl, it appears she still has a UTI. she is mildly tachycardic, KALEN present, CTAB, mild edema in her lower extremities. We will likely begin bid keppra dosing in the morning with improved mental status, consider MRI pending neuro exam once post ictal state resolves, CTA wnl. Continue Levaquin obtain urine culture from [place] and tailor antibiotic regimen. Admit to inpatient stroke for neuro monitoring, further treatment/eval pending clinical course. Addendum - Attending - Attending Attestation Date/Time: 01/21/20 0802 I personally evaluated the patient and discussed the management with Dr. Ramirez/ Ra I agree with the History, Examination, Assessment and Plan documented above with any addition or exceptions noted below. See my event note for details.
[2020-01-20] MEDS: Lactated Ringer's 1,000 ML IV SCH (21:39)
[2020-01-20 22:26] VITALS: BMI 25.3
--- NOTE | 2020-01-21 01:39 | PDOC.BPN ---
- Brief Progress Note Nurse called sometime around 2300 with concerns of pts level of responsiveness upon arrival to the floor. I went up to the pts room to exam her. She was oriented to person and was able to follow commands. GCS of 12 compared to 8 earlier in the day. Her glucose was in the 80s. Will continue to monitor for mental status changes, but improving.
[2020-01-21 04:49] LABS: #Eosinphils 0.4 thou/uL (0.0-0.7); #Lymphocytes 1.7 thou/uL (1.20-3.40); #Monocytes 0.7 thou/uL (0.11-0.59); #Neutrophils 2.9 thou/uL (1.40-6.50); %Basophils 0.9 % (0.0-1.0); %Eosinophils 6.9 % (0.0-10.0); %Lymphocytes 29.6 % (21.0-51.0); %Monocytes 12.5 % (0.0-10.0); %Neutrophils 50.2 % (42.0-75.0); Hemoglobin 13.6 g/dL (12.0-16.0); Mean Corpuscular HGB CONC 33.4 g/dL (32.0-36.0); Mean Corpuscular Hemoglobin 33.2 pg (27.0-31.0); Mean Corpuscular Volume 99.4 fL (78.0-98.0); Mean Platelet Volume 7.6 fL (7.4-10.4); Platelet Count 241 thou/uL (130-400); RBC Distribution Width 11.9 % (11.5-14.5); White Blood Cell (WBC) Count 5.7 thou/uL (4.8-10.8)
[2020-01-21] MEDS: Lactated Ringer's 1,000 ML IV SCH ×3 (04:53→23:50)
[2020-01-21 04:56] LABS: ALT (SGPT) 19 U/L (8-55); AST (SGOT) 30 U/L (5-34); Albumin 2.8 g/dL (3.4-4.8); Alkaline Phosphatase 179 U/L (40-110); Anion Gap 10 mmol/L (10-20); BUN (Urea Nitrogen) 10 mg/dL (9.8-20.1); Bilirubin, Total 0.3 mg/dL (0.2-1.2); Calc. Creatinine Clearance 89 mL/min (70-130); Calcium 9.2 mg/dL (7.8-10.44); Carbon Dioxide 24 mmol/L (23-31); Cardiac Risk 2.8 (Less than 4.5); Chloride 107 mmol/L (98-107); Cholesterol 122 mg/dl (< 200 Desired); Estimated GFR-MDRD Greater than 90; Globulin 2.7 g/dL (2.4-3.5); Glucose 92 mg/dL (83-110); HDL Cholesterol 44 mg/dL (>60 Neg Risk); LDL Cholesterol, Calculated 64 mg/dL; Potassium 4.1 mmol/L (3.5-5.1); Protein, Total 5.5 g/dL (6.0-8.3); Sodium 137 mmol/L (136-145); Triglycerides 71 mg/dL (Less than 150)
--- NOTE | 2020-01-21 05:36 | PDOC.FM ---
Addendum entered and electronically signed by Scott RamirezneDO 01/21/20 11:58: Neuro exam today pertinent for CN II-XII grossly intact. Strength mildly decreased but equal in bilateral lower extremities. Strength intact and equal in bilateral upper extremities. [employer] strength intact. Original Note: - Subjective Subjective: Mental status improved overnight. States she does not remember anything from yesterday. She c/o some difficulty with word finding. Reports she was struggling with this prior to admission. She also reports some mild neck pain. Denies any headache, chest pain, abdominal pain, SOB, dysuria. - Objective Vital Signs & Weight: Vital Signs (12 hours) Temp Pulse Resp BP Pulse Ox 01/21/20 04:49 97.8 F 85 18 127/61 93 L 01/20/20 22:10 96 Weight Weight 71.622 kg I&O: 01/19/20 01/20/20 01/21/20 06:59 06:59 06:59 Intake Total 1200 Output Total 350 Balance 850 Result Diagrams: 01/21/20 03:51 01/21/20 03:51 Phys Exam - Physical Examination Constitutional: NAD HEENT: PERRLA, moist MMs Neck: supple Respiratory: no wheezing, no rales, no rhonchi, clear to auscultation bilateral Cardiovascular: RRR 3/6 systolic murmur LUSB Gastrointestinal: soft, non-tender, no distention, positive bowel sounds Musculoskeletal: no edema, pulses present Neurological: non-focal, moves all 4 limbs mild word finding difficulty Deviation from normal: labile emotions, oriented to self, location, summer 2019 Skin: no rash Dx/Plan - Plan Plan: Altered Mental Status, improving Most likely post-ictal state vs less likely delirium or stroke/TIA. CT head negative for acute bleed. GCS improved from 6 yesterday to 14 this AM. Procalcitonin 0.03, AMS less likely due to bacterial infection. - seizure precautions - passed bedside swallow with clear liquids, will update diet today and DC IV fluids after good oral intake Seizure Disorder Seizure in ED. Most likely due to sub-therapeutic levels after holding dilantin in outpatient setting. Loaded with 1g Keppra in ED. Remains mildly aphasic, but mental status has greatly improved. - started keppra 500mg BID 01/20 - hold dilantin - Neuro consulted in ED, appreciate recs UTI Failed outpatient therapy with keflex. 750mg Levaquin in ED. Allergies to PCN, sulfa drugs. Does not meet SIRS criteria. - continue levaquin 750mg for complicated UTI 2/2 failed outpatient therapy - f/u urine cx results from [place], adjust abx as appropriate Hypothyroid -Aware, hold home synthroid while NPO Hypertension Mildly hypertensive in the setting of seizure. - continue to monitor vitals - continue home meds Hyperlipidemia - Aware, continue home statin - lipid panel wnl Diet: Heart Healthy IVF: LR 100ml/hr Ppx: lovenox Code: Full PCP: Iesha Attending: Vincenzo Dispo: Admit to stroke, expected LOS >2 midnights. Addendum - Attending - Attending Attestation Date/Time: 01/21/20 0637 I personally evaluated the patient and discussed the management with Dr. Ramirez. I agree with the History, Examination, Assessment and Plan documented above with any addition or exceptions noted below. Continue keppra. Awaiting neurology recs. mentating much better today. Hopefully d/c back to SNF tomorrow.
[2020-01-21] MEDS ORDERED: Artificial Tears 18 DROP/0.9 ML EA EYE PRN (08:46)
[2020-01-21] MEDS ORDERED: traMADol HCl 50 MG TAB PO PRN (08:46)
[2020-01-21] MEDS ORDERED: Acetaminophen 325 MG TAB PO PRN (08:46)
[2020-01-21] MEDS: Amlodipine 5 MG TAB PO SCH (09:56)
[2020-01-21] MEDS: Enoxaparin Sodium 40 MG/0.4 ML SYRINGE SC SCH (09:58)
[2020-01-21] MEDS: Aspirin 81 mg Enteric Coated Tablet PO SCH (09:58)
[2020-01-21] MEDS: Folic Acid 1 MG TAB PO SCH (09:58)
[2020-01-21] MEDS: Ferrous Gluconate 324 MG TAB PO SCH ×2 (09:58→22:10)
[2020-01-21] MEDS: Oxybutynin ER 5 MG TAB PO SCH (09:59)
[2020-01-21] MEDS: levETIRAcetam 500 MG TAB PO SCH ×2 (09:59→22:11)
[2020-01-21] MEDS ORDERED: Ondansetron PF 4 MG/2 ML Vial IVP SCH (12:00)
--- NOTE | 2020-01-21 12:25 | CON ---
NEUROLOGY CONSULTATION DATE OF CONSULTATION: 01/21/2020 REASON FOR CONSULTATION: Altered mental status. HISTORY OF PRESENT ILLNESS: Ms. Shirley Garcia is a 74-year-old female with a history significant for hypertension and seizure disorder, brought to the emergency room from [facility] because of altered mental status. Per records, yesterday she was less responsive and not talkative, which was very unusual according to the staff. There is also concern that she has a seizure because the Dilantin levels have been subtherapeutic and she has been recently treated for UTI with Keflex. The patient has no recollection of the event. In the emergency room, she had a witnessed seizure which lasted for less than 5 minutes and she was loaded with Keppra 1 g and given Ativan. Head CT was done, which did not reveal any acute intracranial pathology. REVIEW OF SYSTEMS: Unobtainable due to patient's mental status. - Allergies/Adverse Reactions Allergies Allergy/AdvReac Type Severity Reaction Status Date / Time Penicillins Allergy Rash Verified 08/06/19 22:25 Sulfa (Sulfonamide Allergy Rash Verified 08/06/19 22:25 Antibiotics) - Home Medications Medication Instructions Recorded Confirmed Type Atorvastatin Calcium 10 mg PO HS 12/21/15 08/07/19 History Levothyroxine Sodium 50 mcg PO QAM 12/21/15 08/07/19 History Amlodipine Besylate [amLODIPine 2.5 mg PO DAILY 04/13/16 08/07/19 History Besylate] Ferrous Gluconate [Fergon] 324 mg PO BID 04/13/16 08/07/19 History Loperamide HCl [Imodium] 2 mg PO Q4HR PRN 04/13/16 08/07/19 History Calcium Carbonate [Calcium Antacid] 1,000 mg PO BID PRN 11/11/18 08/07/19 History Cyclobenzaprine HCl 10 mg PO TID PRN 11/11/18 08/07/19 History Ibuprofen [Motrin] 600 mg PO Q8H PRN 11/11/18 08/07/19 History Folic Acid [Folvite] 1 mg PO DAILY #30 tab 07/01/19 08/07/19 Rx Polyethylene Glycol 3350 [Miralax] 17 gm PO DAILY #30 pk 07/01/19 08/07/19 Rx Acetaminophen [Tylenol Regular 650 mg PO Q4H PRN tab 07/11/19 08/07/19 Rx Strength] Artificial Tears [Tears Naturale 2 drop EA EYE PRN PRN each 07/11/19 08/07/19 Rx Free] Aspirin [Ecotrin Low Strength] 81 mg PO DAILY tab 07/11/19 08/07/19 Rx Bisacodyl [Dulcolax] 10 mg [place] DAILYPRN PRN supp 07/11/19 08/07/19 Rx Cyanocobalamin (Vitamin B-12) 1,000 mcg PO DAILY tab 07/11/19 08/07/19 Rx [Vitamin B-12] Enoxaparin Sodium [Lovenox] 40 mg SC 0900 syringe 07/11/19 08/07/19 Rx Ipratropium/Albuterol Sulfate 3 ml NEB Q6H PRN neb 07/11/19 08/07/19 Rx [DuoNeb] Sennosides/Docusate Sodium 2 tab PO BIDPRN PRN tab 07/11/19 08/07/19 Rx [Senokot S] Omeprazole 20 mg PO DAILY 08/07/19 08/07/19 History Oxybutynin ER [Ditropan XL] 5 mg PO DAILY 08/07/19 08/07/19 History traMADol HCl [Tramadol HCl] 50 mg PO Q8HR PRN 08/07/19 08/07/19 History Phenytoin [Dilantin Suspension] 300 mg PO DAILY udcup 08/13/19 Rx 01/21/20 03:51 Lab results: WBC 6.2 thou/uL (4.8-10.8) 01/20/20 14:03 Hgb 16.7 g/dL (12.0-16.0) H 01/20/20 14:03 Hct 50.8 % (36.0-47.0) H 01/20/20 14:03 MCV 98.7 fL (78.0-98.0) H 01/20/20 14:03 Plt Count 298 thou/uL (130-400) 01/20/20 14:03 Neutrophils % 57.6 % (42.0-75.0) 01/20/20 14:03 Sodium 137 mmol/L (136-145) 01/20/20 14:03 Potassium 4.4 mmol/L (3.5-5.1) 01/20/20 14:03 Chloride 103 mmol/L (98-107) 01/20/20 14:03 Carbon Dioxide 24 mmol/L (23-31) 01/20/20 14:03 BUN 11 mg/dL (9.8-20.1) 01/20/20 14:03 Creatinine 0.70 mg/dL (0.6-1.1) 01/20/20 14:03 Glucose 93 mg/dL (83-110) 01/20/20 14:03 Calcium 10.3 mg/dL (7.8-10.44) 01/20/20 14:03 Total Bilirubin 0.4 mg/dL (0.2-1.2) 01/20/20 14:03 AST 37 U/L (5-34) H 01/20/20 14:03 ALT 24 U/L (8-55) 01/20/20 14:03 Alkaline Phosphatase 250 U/L (40-110) H 01/20/20 14:03 Serum Total Protein 7.3 g/dL (6.0-8.3) 01/20/20 14:03 Albumin 3.8 g/dL (3.4-4.8) 01/20/20 14:03 Urine Ketones Negative mg/dL (Negative) 01/20/20 13:54 Urine Blood Negative (Negative) 01/20/20 13:54 Urine Nitrite Negative (Negative) 01/20/20 13:54 Ur Leukocyte Esterase 250 Ryann/uL (Negative) A 01/20/20 13:54 Urine RBC 4-6 HPF (0-3) A 01/20/20 13:54 Urine WBC 21-50 HPF (0-3) A 01/20/20 13:54 Ur Squamous Epith Cells 0-3 HPF (0-3) 01/20/20 13:54 Urine Bacteria 1+ HPF (None Seen) A 01/20/20 13:54 PAST MEDICAL HISTORY: Seizure disorder, hypertension, hypothyroidism. PAST SURGICAL HISTORY: Right hip surgery, tonsillectomy. FAMILY HISTORY: No significant family history of seizures. SOCIAL HISTORY: The patient denies smoking, alcohol, or illegal drug use. She is a detention resident at the [facility]. Objective Vital Signs & Weight: Vital Signs (12 hours) Temp Pulse Resp BP Pulse Ox 01/21/20 04:49 97.8 F 85 18 127/61 93 L 01/20/20 22:10 96 Weight Weight 71.622 kg I&O: 01/19/20 01/20/20 01/21/20 06:59 06:59 06:59 Intake Total 1200 Output Total 350 Balance 850 PHYSICAL EXAMINATION: CVS: Regular rate and rhythm. CHEST: Clear. ABDOMEN: Soft. NECK: Supple. NEUROLOGIC: Mental status, the patient is alert and oriented to person, place, and time. She has no recollection of what happened yesterday. Otherwise, fund of knowledge is appropriate. Cranial nerves 2 through 12 intact. Motor: Muscle tone and bulk are normal. Strength 5/5 bilaterally. Cerebellar: Finger-nose testing intact. Sensory intact. Gait deferred due to patient's safety reasons. DATA REVIEWED: I reviewed the labs which include CBC and CMP, which were essentially unremarkable. I also reviewed the head CT, which did not reveal any acute intracranial pathology. An EKG showed no acute changes. The EEG was also reviewed, which was consistent with mild generalized nonspecific cerebral dysfunction, but no evidence of seizure activity. ASSESSMENT AND PLAN: Ms. Shirley Garcia is consulted for altered mental status, most likely secondary to breakthrough seizures in the setting of urinary tract infection and discontinuation of Dilantin due to supratherapeutic Dilantin levels since the last week. The Dilantin level was found to be subtherapeutic in the emergency room around 7. The combination of subtherapeutic Dilantin level and urinary tract infection resulted in a breakthrough seizure. She was already loaded with 1 g of Keppra in the emergency room. Discontinue Dilantin and start Keppra 500 mg twice daily maintenance dose. Observe seizure precautions. Ativan 2 mg IV for seizure greater than 2 minutes. EEG was reviewed, which did not reveal any ongoing seizure activity. Neuro checks every 4 hours. Continue home medications. Continue medical management per primary team including urinary tract infection. We will continue to follow. Thank you for the consult. Job ID: [id number] MTDD
--- NOTE | 2020-01-21 12:42 | EEG ---
DATE OF SERVICE: 01/21/2020 ATTENDING PHYSICIAN: Erendira Gomes MD This EEG was performed using 24-channel [employer] video digital EEG machine with 24 disk electrodes. This was an extended 2 hours 5 minutes of inpatient video EEG recording. Digital analysis of the EEG was done for spike and seizure detection, which revealed no abnormalities. BACKGROUND: There was a nonsustained posterior background rhythm of 8.5 Hz. Minimal reactivity seen with eye opening and closure. HYPERVENTILATION: Not performed. PHOTIC STIMULATION: No significant response seen with photic stimulation. SLEEP: Drowsiness and sleep are observed. EEG DIAGNOSES: 1. Occasional irregular theta activity seen during the recording. 2. Nonsustained posterior background rhythm. CLINICAL INTERPRETATION: This EEG is consistent with mild generalized nonspecific cerebral dysfunction. No ictal or interictal epileptiform abnormalities seen during the recording. Job ID: [id number]
[2020-01-21] MEDS ORDERED: Atorvastatin Calcium 10 MG TAB PO SCH (21:00)
[2020-01-21] MEDS: Calcium Carbonate 500 MG ChewTAB PO SCH (22:17)
[2020-01-22 04:40] LABS: #Eosinphils 0.6 thou/uL (0.0-0.7); #Lymphocytes 1.5 thou/uL (1.20-3.40); #Monocytes 0.7 thou/uL (0.11-0.59); #Neutrophils 3.3 thou/uL (1.40-6.50); %Basophils 0.5 % (0.0-1.0); %Eosinophils 9.1 % (0.0-10.0); %Lymphocytes 25.2 % (21.0-51.0); %Monocytes 11.6 % (0.0-10.0); %Neutrophils 53.6 % (42.0-75.0); Hemoglobin 14.1 g/dL (12.0-16.0); Mean Corpuscular HGB CONC 31.5 g/dL (32.0-36.0); Mean Corpuscular Hemoglobin 31.3 pg (27.0-31.0); Mean Corpuscular Volume 99.6 fL (78.0-98.0); Mean Platelet Volume 7.3 fL (7.4-10.4); Platelet Count 248 thou/uL (130-400); RBC Distribution Width 11.8 % (11.5-14.5); White Blood Cell (WBC) Count 6.1 thou/uL (4.8-10.8)
[2020-01-22] MEDS: Lactated Ringer's 1,000 ML IV SCH ×2 (04:51→08:19)
[2020-01-22 04:58] LABS: ALT (SGPT) 16 U/L (8-55); AST (SGOT) 23 U/L (5-34); Albumin 3.1 g/dL (3.4-4.8); Alkaline Phosphatase 201 U/L (40-110); Anion Gap 8 mmol/L (10-20); BUN (Urea Nitrogen) 6 mg/dL (9.8-20.1); Bilirubin, Total 0.3 mg/dL (0.2-1.2); Calc. Creatinine Clearance 83 mL/min (70-130); Calcium 9.3 mg/dL (7.8-10.44); Carbon Dioxide 28 mmol/L (23-31); Chloride 108 mmol/L (98-107); Estimated GFR-MDRD 89; Globulin 2.8 g/dL (2.4-3.5); Glucose 92 mg/dL (83-110); Potassium 3.8 mmol/L (3.5-5.1); Protein, Total 5.9 g/dL (6.0-8.3); Sodium 140 mmol/L (136-145)
[2020-01-22] MEDS ORDERED: Levothyroxine Sodium 50 MCG TAB PO SCH (06:00)
--- NOTE | 2020-01-22 06:44 | PDOC.FM ---
- Subjective Subjective: No acute overnight events. Feeling well this morning, no new complaints. Denies chest pain, SOB, abdominal pain, focal weakness. - Objective Vital Signs & Weight: Vital Signs (12 hours) Temp Pulse Resp BP Pulse Ox 01/22/20 05:43 97.6 F 87 16 142/63 H 98 Weight Weight 71.622 kg I&O: 01/20/20 01/21/20 01/22/20 06:59 06:59 06:59 Intake Total 1200 Output Total 350 Balance 850 Result Diagrams: 01/22/20 04:05 01/22/20 04:05 EKG Reviewed by me: Yes (Tele reviewed, no events overnight, sinus rhythm) Phys Exam - Physical Examination Constitutional: NAD HEENT: moist MMs Neck: supple, full ROM Respiratory: no wheezing, no rales, no rhonchi, clear to auscultation bilateral Cardiovascular: RRR 2/6 systolic murmur LUSB Gastrointestinal: soft, non-tender, no distention, positive bowel sounds Musculoskeletal: no edema, pulses present Neurological: non-focal, moves all 4 limbs Psychiatric: normal affect, A&O x 3 Skin: no rash Dx/Plan (1) Dyslipidemia Code(s): E78.5 - HYPERLIPIDEMIA, UNSPECIFIED Status: Chronic (2) Hypertension Code(s): I10 - ESSENTIAL (PRIMARY) HYPERTENSION Status: Chronic Qualifiers: Hypertension type: essential hypertension Qualified Code(s): I10 - Essential (primary) hypertension (3) Hypothyroid Code(s): E03.9 - HYPOTHYROIDISM, UNSPECIFIED Status: Chronic Qualifiers: Hypothyroidism type: acquired Qualified Code(s): E03.9 - Hypothyroidism, unspecified (4) Seizure Code(s): R56.9 - UNSPECIFIED CONVULSIONS Status: Acute (5) Urinary tract infection Status: Acute Qualifiers: Urinary tract infection type: acute cystitis Hematuria presence: without hematuria Qualified Code(s): N30.00 - Acute cystitis without hematuria - Plan Plan: Altered Mental Status, resolved Most likely post-ictal state vs less likely delirium or stroke/TIA. CT head negative for acute bleed. Procalcitonin 0.03, AMS less likely due to bacterial infection. - seizure precautions - passed bedside swallow with clear liquids, given heart healthy diet Seizure Disorder Seizure in ED. Most likely due to sub-therapeutic levels after holding dilantin in outpatient setting. Loaded with 1g Keppra in ED. Has been stable since admission. - started keppra 500mg BID 01/20 - discontinue dilantin - Neuro consulted in ED, appreciate recs UTI Treated with Keflex in outpatient setting. Unable to obtain urine cx results from [facility]. Initially treated for complicated UTI 2/2 failed outpatient therapy, although more likely that sub-therapeutic dilantin level was responsible for seizures. - resume keflex upon discharge Hypothyroid -Aware, continue home synthroid Hypertension Mildly hypertensive in the setting of seizure. - continue to monitor vitals - continue home meds Hyperlipidemia - Aware, continue home statin - lipid panel wnl Diet: Heart Healthy IVF: SL Ppx: lovenox Code: Full PCP: Iesha Attending: Vincenzo Dispo: Likely discharge to [facility] today Addendum - Attending - Attending Attestation Date/Time: 01/22/20 9144 I personally evaluated the patient and discussed the management with Dr. Ramirez. I agree with the History, Examination, Assessment and Plan documented above with any addition or exceptions noted below. D/C SNF today. continue keppra 500 mg BID.
[2020-01-22] MEDS: Amlodipine 5 MG TAB PO SCH (08:08)
[2020-01-22] MEDS: Aspirin 81 mg Enteric Coated Tablet PO SCH (08:10)
[2020-01-22] MEDS: Calcium Carbonate 500 MG ChewTAB PO SCH (08:10)
[2020-01-22] MEDS: Enoxaparin Sodium 40 MG/0.4 ML SYRINGE SC SCH (08:11)
[2020-01-22] MEDS: Folic Acid 1 MG TAB PO SCH (08:11)
[2020-01-22] MEDS: Ferrous Gluconate 324 MG TAB PO SCH (08:11)
[2020-01-22] MEDS: Oxybutynin ER 5 MG TAB PO SCH (08:11)
[2020-01-22] MEDS: levETIRAcetam 500 MG TAB PO SCH (08:11)
[2020-01-22] MEDS ORDERED: Cyanocobalamin (Vitamin B-12) 1,000 MCG TAB PO SCH (09:00)
[2020-01-22 12:07] VITALS: BP 118/57; TEMP 97.5
--- NOTE | 2020-01-22 12:26 | PDOC.HOSPP ---
- Subjective Encounter Date: 01/22/20 Subjective: NEUROLOGY PROGRESS NOTE Patient awake, alert and without any complaints. She is tolerating Keppra well. - Objective Vital Signs & Weight: Vital Signs (12 hours) Temp Pulse Resp BP Pulse Ox 01/22/20 11:41 97.5 F L 89 14 118/57 L 96 01/22/20 07:58 97.4 F L 94 16 135/60 96 01/22/20 05:43 97.6 F 87 16 142/63 H 98 Weight Weight 157 lb 14.4 oz I&O: 01/21/20 01/22/20 01/23/20 06:59 06:59 06:59 Intake Total 1200 Output Total 350 Balance 850 Result Diagrams: 01/22/20 04:05 01/22/20 04:05 Radiology Reviewed by me: Yes EKG Reviewed by me: Yes Hospitalist ROS - Review of Systems Constitutional: denies: fever, chills, sweats, weakness, malaise, other Eyes: denies: pain, vision change, conjunctivae inflammation, eyelid inflammation, redness, other ENT: denies: ear pain, ear discharge, nose pain, nose discharge, nose congestion , mouth pain, mouth swelling, throat pain, throat swelling, other Respiratory: denies: cough, dry, shortness of breath, hemoptysis, SOB with excertion, pleuritic pain, sputum, wheezing, other Cardiovascular: denies: chest pain, palpitations, orthopnea, paroxysmal noc. dyspnea, edema, light headedness, other Gastrointestinal: denies: nausea, vomiting, abdominal pain, diarrhea, constipation, melena, hematochezia, other Genitourinary: denies: dysuria, frequency, incontinence, hematuria, retention, other Musculoskeletal: denies: neck pain, shoulder pain, arm pain, back pain, hand pain, leg pain, foot pain, other Skin: denies: rash, lesions, charity, bruising, other Neurological: denies: weakness, numbness, incoordination, change in speech, confusion, seizures, other - Medication Medications: Active Medications Generic Name Dose Route Start Last Admin Trade Name Freq PRN Reason Stop Dose Admin Amlodipine Besylate 2.5 mg 01/21/20 09:00 01/22/20 08:08 Norvasc PO 2.5 mg DAILY CARMELO Administration Aspirin 81 mg 01/21/20 09:00 01/22/20 08:10 Ecotrin PO 81 mg DAILY CARMELO Administration Atorvastatin Calcium 10 mg 01/21/20 21:00 01/21/20 22:11 Lipitor PO 10 mg HS CARMELO Administration Calcium Carbonate 1,000 mg 01/21/20 21:00 01/22/20 08:10 Tums PO 1,000 mg BID CARMELO Administration Cyanocobalamin 1,000 mcg 01/22/20 09:00 01/22/20 08:10 Vitamin B-12 PO 1,000 mcg DAILY CARMELO Administration Enoxaparin Sodium 40 mg 01/21/20 09:00 01/22/20 08:11 Lovenox SC 40 mg 0900 CARMELO Administration Ferrous Gluconate 324 mg 01/21/20 09:00 01/22/20 08:11 Fergon PO 324 mg BID CARMELO Administration Folic Acid 1 mg 01/21/20 09:00 01/22/20 08:11 Folvite PO 1 mg DAILY CARMELO Administration Levofloxacin 750 mg/ Device 150 mls @ 100 mls/hr 01/21/20 16:00 01/21/20 15: 30 IVPB 150 mls 1600 CARMELO Administration Levetiracetam 500 mg 01/21/20 09:00 01/22/20 08:11 Keppra PO 500 mg BID CARMELO Administration Levothyroxine Sodium 50 mcg 01/22/20 06:00 01/22/20 05:47 Synthroid PO 50 mcg 0600 CARMELO Administration Oxybutynin Chloride 5 mg 01/21/20 09:00 01/22/20 08:11 Ditropan Xl PO 5 mg DAILY CARMELO Administration Pantoprazole Sodium 40 mg 01/22/20 09:00 01/22/20 08:11 Protonix PO 40 mg DAILY CARMELO Administration - Exam Eye: PERRL ENT: normocephalic atraumatic Neck: supple Heart: RRR Respiratory: CTAB Gastrointestinal: soft Extremities: no cyanosis Skin: normal turgor Neurological: cranial nerve grossly intact, normal sensation to touch, no weakness, no focal deficits, no new deficit Musculoskeletal: normal tone, normal strength, no muscle wasting Psychiatric: normal affect, normal behavior, A&O x 3, oriented to person, oriented to place, oriented to time Hosp A/P (1) Seizure Code(s): R56.9 - UNSPECIFIED CONVULSIONS Status: Acute (2) Acute metabolic encephalopathy Code(s): G93.41 - METABOLIC ENCEPHALOPATHY Status: Acute (3) Dilantin toxicity Code(s): T42.0X1A - POISONING BY HYDANTOIN DERIVATIVES, ACCIDENTAL, INIT Status: Acute - Plan 74 year old presented with breakthrough seizure due to subtherapeutic dilantin levels and also due to infectious etiology. Patient switched to keppra due to difficulty maintaining dilantin levels. Tolerated Keppra well. Continue Keppra as outpatient. Dilantin discontinued. Observe seizure precautions. EEG reviewed which was negative for seizure activity. Continue home medications and medical management per primary team. Possible discharge today. Plan discussed with the patient.
--- NOTE | 2020-01-23 07:53 | DIS ---
DATE OF ADMISSION: 01/20/2020 DATE OF DISCHARGE: 01/22/2020 RESIDENT: Azul Ramirez DO ADMITTING ATTENDING: Amol Loya MD DISCHARGE ATTENDING: Aoml Loya MD CONSULTS: Neurology, Dr. Krishna. PROCEDURES: EEG, significant for occasional irregular theta activity during recording and nonsustained posterior background rhythm. PRIMARY DIAGNOSES: 1. Altered mental status. 2. Seizure disorder. SECONDARY DIAGNOSES: 1. Urinary tract infection. 2. Hypertension. 3. Hypothyroidism. 4. Hyperlipidemia. DISCHARGE MEDICATIONS: 1. Levothyroxine 50 mcg p.o. q.a.m. 2. Atorvastatin 10 mg p.o. at bedtime. 3. Amlodipine 2.5 mg p.o. daily. 4. Ferrous gluconate 324 mg p.o. b.i.d. 5. Calcium bicarbonate 1000 mg p.o. b.i.d. 6. Folic acid 1 mg p.o. daily. 7. Acetaminophen 650 mg p.o. q.4 hours p.r.n. 8. Artifical Tears two drops in each eye p.r.n. 9. Aspirin 81 mg p.o. daily. 10. Oxybutynin ER 5 mg p.o. daily. 11. Tramadol 50 mg p.o. q.8 hours p.r.n. 12. Omeprazole 20 mg p.o. daily. 13. B12 of 1000 mcg p.o. daily. 14. Keflex 500 mg p.o. q.12 hours until antibiotic course is completed. 15. Keppra 500 mg p.o. b.i.d. DISCONTINUED MEDICATIONS: Phenytoin/Dilantin. HOSPITAL COURSE: This 74-year-old female, who was brought to the ED by EMS for altered mental status after being noticeably less responsive and less talkative at her snf, [place]. While in the ED, she had a witnessed seizure for less than 5 minutes. She was loaded with 1 g of Keppra and given Ativan. Neurology was consulted from the ED. Approximately one week prior to admission, her Dilantin levels were found to be supratherapeutic and this medication was held. Concurrently, she had urinary tract infection, which was being treated with Keflex in the outpatient setting. ED workup was significant for a subtherapeutic Dilantin level of 7.7. UA with white blood cells and 1+ bacteria. CT head with no acute intracranial hemorrhage. She was admitted to the stroke unit for further evaluation and treatment. An EEG was performed, result as above. Dilantin was held and she was started on 500 mg of Keppra b.i.d. She was also treated with Levaquin for her UTI. No further seizure activity during this admission. Her Dilantin was discontinued and she was just managed with a new medication of 500 mg of Keppra b.i.d. DISPOSITION: Stable. DISCHARGE INSTRUCTIONS: Location: [facility]. Diet: Heart healthy. Activity: As tolerated. Followup: Follow up with PCP, Dr. Mckeon, in 3 days. Job ID: [id number]
== END 2020-01-22 15:15 | DRG 101 ==
LOC: ERS 13:30 → ERHOLD 16:40 → OBSVTOIN 17:24 → 2NO 20:34
PROVIDERS: ADMIT Family Medicine; ATTEND Family Medicine
DX: G40.909 Epilepsy, unspecified, not intractable, without status epilepticus (principal); N39.0 Urinary tract infection, site not specified; E03.9 Hypothyroidism, unspecified; K21.9 Gastro-esophageal reflux disease without esophagitis; K58.9 Irritable bowel syndrome, unspecified; E78.5 Hyperlipidemia, unspecified; I10 Essential (primary) hypertension; Z96.641 Presence of right artificial hip joint; C76.0 Malignant neoplasm of head, face and neck; T42.0X5A Adverse effect of hydantoin derivatives, initial encounter; Z88.0 Allergy status to penicillin; Z88.2 Allergy status to sulfonamides
CPT/HCPCS: 36415; 36416; 70496; 70498; 71045; 80053; 80061; 80185; 81003; 81015; 84145; 84484; 85025; 87040; 87086; 93005; 95712; 95816; 95819; 95957; J1650; J1953; J1956; J2060; J2405; Q9967

== ENCOUNTER 2021-01-26 02:27 | Emergency (ER) | payer MEDICARE | END 2021-01-26 08:20 | disposition home or self-care (01) | LOC: ERS 02:27 | DX: M54.5 Low back pain (principal); E03.9 Hypothyroidism, unspecified; K21.9 Gastro-esophageal reflux disease without esophagitis; I10 Essential (primary) hypertension; E78.5 Hyperlipidemia, unspecified; Z79.899 Other long term (current) drug therapy | CPT/HCPCS: 99283 ==

== ENCOUNTER 2022-04-25 18:09 | Emergency (ER) | payer MEDICARE | END 2022-04-25 21:28 | disposition home or self-care (01) | LOC: ERS 18:09 | DX: S50.312A Abrasion of left elbow, initial encounter (principal); I10 Essential (primary) hypertension; E78.5 Hyperlipidemia, unspecified; K21.9 Gastro-esophageal reflux disease without esophagitis; V00.831A Fall from motorized mobility scooter, initial encounter ==

== ENCOUNTER 2023-06-15 08:29 | Outpatient (CLI) | payer MEDICARE | END 2023-06-15 08:30 | disposition home or self-care (01) | LOC: ULT 08:29 | PROVIDERS: ATTEND Student in an Organized Health Care Education/Training Program | DX: N39.0 Urinary tract infection, site not specified (principal); I10 Essential (primary) hypertension; N20.0 Calculus of kidney; R94.39 Abnormal result of other cardiovascular function study | CPT/HCPCS: 76770; 93975 ==

== ENCOUNTER 2023-10-05 10:02 | Outpatient (CLI) | payer MEDICARE | END 2023-10-05 10:03 | disposition home or self-care (01) | LOC: BICCT 10:02 | PROVIDERS: ATTEND Urology | DX: N20.0 Calculus of kidney (principal); N39.41 Urge incontinence; R35.0 Frequency of micturition; N95.2 Postmenopausal atrophic vaginitis; Z87.440 Personal history of urinary (tract) infections | CPT/HCPCS: 74176 ==

== ENCOUNTER 2024-01-04 09:22 | Inpatient (IN) | payer MEDICARE ==
[2024-01-09 11:07] VITALS: BMI 31.1
[2024-01-09 12:11] VITALS: BP 140/62; TEMP 97.9
== END 2024-01-09 15:03 | DRG 640 ==
LOC: ERS 09:22 → ERHOLD 12:46 → INTOOBSV 12:46 → 2NO 18:29 → OBSVTOIN 01-06 12:41
PROVIDERS: ADMIT Family Medicine; ATTEND Family Medicine
DX: E86.0 Dehydration (principal); I21.A1 Myocardial infarction type 2; E03.9 Hypothyroidism, unspecified; I10 Essential (primary) hypertension; G40.909 Epilepsy, unspecified, not intractable, without status epilepticus; K58.9 Irritable bowel syndrome, unspecified; I49.5 Sick sinus syndrome; G89.29 Other chronic pain; M54.50 Low back pain, unspecified; Z79.899 Other long term (current) drug therapy; Z87.891 Personal history of nicotine dependence
CPT/HCPCS: 36415; 36416; 70450; 71045; 72170; 80048; 80053; 82550; 84484; 85025; 85027; 93005; 96372; G0378; J1650; J7120